=== PATIENT | female | born 1955 | race Two or more races ===

== ENCOUNTER 2019-12-08 09:47 | Outpatient (REF) | payer MEDICAID, SELFPAY ==
--- NOTE | 2019-12-08 09:53 | MM_ITS ---
EXAMINATION: MM SCREENING DIGITAL BREAST TOMOSYNTHESIS, BILATERAL CLINICAL INFORMATION: Screening. Asymptomatic. The lifetime risk of breast cancer based on the Tyrer-Cuzick Model is 5%. COMPARISON: Mammography: 07/19/2018, 12/09/2016 TECHNIQUE: Digital breast tomosynthesis is performed in both the craniocaudal and mediolateral oblique views along with computer-aided detection (CAD). Synthesized 2D images are generated from the tomosynthesis. FINDINGS: There are scattered areas of fibroglandular density (ACR BI-RADS breast composition Category b). There are no significant masses, abnormal calcifications, or other abnormalities. The axilla and skin contours are unremarkable. No significant changes. MM/MM tomosynthesis screening BI IMPRESSION: No mammographic evidence of malignancy. ASSESSMENT: BI-RADS 1: Negative RECOMMENDATION: Routine annual mammography screening. This patient's information was entered into a reminder system with a target due date for their next mammogram.
== END 2019-12-08 09:48 | disposition home or self-care (01) ==
LOC: HO.MAMMO 09:47
PROVIDERS: PCP Internal Medicine; Visit Provider Internal Medicine
DX: Z12.31 Encounter for screening mammogram for malignant neoplasm of breast (principal)
CPT/HCPCS: 77063; 77067

== ENCOUNTER 2020-10-13 07:19 | Outpatient (REF) | payer MEDICAID, SELFPAY ==
[2020-10-13 08:32] LABS: Anion Gap 12 (12-20); Blood Urea Nitrogen 20 mg/dL (9-16); Calcium 9.6 mg/dL (8.4-10.2); Carbon Dioxide 26 mmol/L (22-29); Chloride 108 mmol/L (96-108); Estimated Glomerular Filt Rate > 60; Glucose Random 174 mg/dL (60-115); Potassium 4.5 mmol/L (3.3-5.1); Sodium 141 mmol/L (135-145)
== END 2020-10-13 07:20 | disposition home or self-care (01) ==
LOC: HO.LAB 07:19
PROVIDERS: PCP Internal Medicine; Visit Provider Internal Medicine
DX: I10 Essential (primary) hypertension (principal)
CPT/HCPCS: 36415; 80048

== ENCOUNTER 2020-12-10 10:06 | Outpatient (REF) | payer MEDICAID, SELFPAY ==
--- NOTE | ~2020-12-10 | MM_ITS ---
EXAMINATION: MM SCREENING DIGITAL BREAST TOMOSYNTHESIS, BILATERAL CLINICAL INFORMATION: Screening. Asymptomatic. The lifetime risk of breast cancer based on the Tyrer-Cuzick Model is 7%. COMPARISON: Mammography: 12/08/2019, 07/19/2018, 12/09/2016 TECHNIQUE: Digital breast tomosynthesis is performed in both the craniocaudal and mediolateral oblique views along with computer-aided detection (CAD). Synthesized 2D images are generated from the tomosynthesis. Additional exaggerated right CC view is provided. FINDINGS: There are scattered areas of fibroglandular density (ACR BI-RADS breast composition Category b). There are no significant masses, abnormal calcifications, or other abnormalities. Parenchymal pattern is similar to prior studies. No significant changes. MM/MM tomosynthesis screening BI IMPRESSION: No mammographic evidence of malignancy. ASSESSMENT: BI-RADS 1: Negative RECOMMENDATION: Routine annual mammography screening. This patient's information was entered into a reminder system with a target due date for their next mammogram.
== END 2020-12-10 10:07 | disposition home or self-care (01) ==
LOC: HO.MAMMO 10:06
PROVIDERS: Visit Provider Internal Medicine
DX: Z12.31 Encounter for screening mammogram for malignant neoplasm of breast (principal)
CPT/HCPCS: 77063; 77067

== ENCOUNTER 2021-04-20 06:56 | Outpatient (REF) | payer MEDICAID, SELFPAY ==
[2021-04-20 07:05] LABS: MANUAL DIFF FLAG NO
[2021-04-20 07:56] LABS: Basophils Percent Auto 0.4 % (0-2); Eosinophils Absolute Auto 0.1 X10*3/uL (0.0-0.4); Eosinophils Percent Auto 2.5 % (0-4); Hematocrit 42.5 % (37.0-47.0); Hemoglobin 14.1 g/dl (12.0-16.0); Imm Gran Abs Auto 0.03 X10*3/uL (0.00-0.03); Imm Gran Pct Auto 0.6 % (0.0-0.4); Lymphocytes Absolute Auto 1.8 X10*3/uL (1.2-4.9); Lymphocytes Percent Auto 37.1 % (20-40); Mean Corpuscular HGB Conc 33.2 g/dl (31.0-35.0); Mean Corpuscular Hemoglobin 30.7 pg (27.0-33.0); Mean Corpuscular Volume 92.4 fL (80.0-98.0); Mean Platelet Volume 11.9 fL (9.4-12.3); Monocytes Absolute Auto 0.4 X10*3/uL (0.1-1.2); Monocytes Percent Auto 7.9 % (2-11); Neutrophils Absolute Auto 2.5 x10*3/uL (2.0-8.3); Neutrophils Percent Auto 51.5 % (45-73); Platelet Count 177 X10*3/uL (160-400); Red Cell Distribution Width 12.4 % (11.0-16.0); White Blood Count 4.8 X10*3/uL (4.8-10.8)
[2021-04-20 08:15] LABS: Alanine Aminotransferase 32 U/L (0-31); Albumin Level 4.4 g/dL (3.5-5.0); Alkaline Phosphatase 72 U/L (39-117); Anion Gap 11 (12-20); Aspartate Amino Transferase 21 U/L (5-31); Bilirubin Direct 0.4 mg/dL (0.0-0.5); Bilirubin Total 1.3 mg/dL (0.0-1.0); Blood Urea Nitrogen 13 mg/dL (9-16); Calcium 9.8 mg/dL (8.4-10.2); Carbon Dioxide 29 mmol/L (22-29); Chloride 104 mmol/L (96-108); Cholesterol 178 mg/dL; Estimated Glomerular Filt Rate > 60; Glucose Random 203 mg/dL (60-115); HDL Cholesterol 51 mg/dL; LDL Cholesterol Calculated 102 mg/dl; Potassium 4.5 mmol/L (3.3-5.1); Sodium 139 mmol/L (135-145); Total Protein 7.8 g/dL (6.5-8.0); Triglycerides 126 mg/dL
[2021-04-20 08:33] LABS: Creatinine Urine 157.32 mg/dL; Microalbum/Creatinine Ratio Ur 8.2 ug/mg cr
[2021-04-20 08:39] LABS: Vitamin D 25-OH Total 29.4 ng/mL (>30)
== END 2021-04-20 06:57 | disposition home or self-care (01) ==
LOC: HO.LAB 06:56
PROVIDERS: PCP Internal Medicine; Visit Provider Internal Medicine
DX: Z00.00 Encounter for general adult medical examination without abnormal findings (principal)
CPT/HCPCS: 36415; 80048; 80061; 80076; 82043; 82306; 85025

== ENCOUNTER 2021-12-12 09:36 | Outpatient (REF) | payer MEDICAID, SELFPAY ==
--- NOTE | ~2021-12-12 | MM_ITS ---
EXAMINATION: MM SCREENING DIGITAL BREAST TOMOSYNTHESIS, BILATERAL CLINICAL INFORMATION: Screening. Asymptomatic. The lifetime risk of breast cancer based on the Tyrer-Cuzick Model is 8.6%. COMPARISON: Mammography: 12/10/2020 and studies dating back to 11/11/2013. TECHNIQUE: Digital breast tomosynthesis was performed in both the craniocaudal and mediolateral oblique views along with computer-aided detection (CAD). Synthesized 2D images were generated from the tomosynthesis. FINDINGS: There are scattered areas of fibroglandular density (ACR BI-RADS breast composition Category b). There is a stable parenchymal pattern of the left breast with no new abnormal dominant mass or suspicious grouping of microcalcifications. Within the upper outer aspect of the right breast is question of a new oval density not seen on mediolateral oblique projection and which appears to lie about the lateral aspect of the breast on CC view. Spot compression views and possible ultrasound to follow are recommended. MM/MM tomosynthesis screening BI IMPRESSION: Right breast density for further evaluation. ASSESSMENT: BI-RADS 0: Incomplete - Need Additional Imaging Evaluation RECOMMENDATION: 1. Additional views of the right breast. 2. Targeted ultrasound if warranted after review of the additional views. 3. Radiology department staff will contact the patient for additional imaging. This patient's information was entered into a reminder system with a target due date for their next mammogram.
== END 2021-12-12 09:37 | disposition home or self-care (01) ==
LOC: HO.MAMMO 09:36
PROVIDERS: PCP Internal Medicine; Visit Provider Internal Medicine
DX: Z12.31 Encounter for screening mammogram for malignant neoplasm of breast (principal)
CPT/HCPCS: 77063; 77067

== ENCOUNTER 2021-12-31 14:15 | Outpatient (REF) | payer MEDICAID, SELFPAY ==
--- NOTE | ~2021-12-31 | MM_ITS ---
EXAMINATION: MM DIAGNOSTIC DIGITAL BREAST TOMOSYNTHESIS, RIGHT US DIAGNOSTIC ULTRASOUND BREAST, RIGHT CLINICAL INFORMATION: Recall from screening for question of small nodular asymmetric density anterior upper outer right breast. COMPARISON: Mammography: 12/12/2021, 12/10/2020, 12/08/2019, 07/19/2018, 12/09/2016, 12/05/2015, 11/17/2014. TECHNIQUE: Digital breast tomosynthesis is performed. 2D images are generated from the tomosynthesis. The following views are obtained: Spot CC, spot ML, rolled CC x2. Ultrasound right breast is targeted to the 1:00 through 1:00 position using grayscale imaging and color Doppler without and with harmonics. FINDINGS: There are scattered areas of fibroglandular density (ACR BI-RADS breast composition Category b). The additional views show questionable small smooth nodular asymmetric density in the area of recent imaging interest. There is no spiculation or associated calcification. Finding may be obscured on prior exams related to positioning. Ultrasound demonstrates small cyst approximately 0.3 cm 11:00 position 3 cm from nipple. There is no solid mass or architectural abnormality or focal duct ectasia. Results are discussed with the patient at time of visit. The small cyst on ultrasound may represent the mammographic finding. As a precaution, short interval six-month follow-up right mammography will be requested. MM/MM tomosynthesis added views R IMPRESSION: -Additional views show no architectural abnormality. -Ultrasound demonstrates small cyst under 5 mm, possibly corresponding to finding on recent mammography. ASSESSMENT: BI-RADS 3: Probably Benign RECOMMENDATION: Diagnostic right mammography in 6 months. This patient's information was entered into a reminder system with a target due date for their next mammogram.
== END 2021-12-31 14:16 | disposition home or self-care (01) ==
LOC: HO.MAMMO 14:15
PROVIDERS: PCP Internal Medicine; Visit Provider Internal Medicine
DX: R92.2 Inconclusive mammogram (principal)
CPT/HCPCS: 76642; 77061; 77065

== ENCOUNTER 2022-06-26 14:01 | Outpatient (REF) | payer MEDICAID, SELFPAY ==
--- NOTE | ~2022-06-26 | MM_ITS ---
EXAMINATION: MM DIAGNOSTIC DIGITAL BREAST TOMOSYNTHESIS, RIGHT US DIAGNOSTIC ULTRASOUND BREAST, RIGHT CLINICAL INFORMATION: Small nodular asymmetric density anterior upper outer right breast for short interval six-month follow-up, likely cyst on prior targeted breast ultrasound. Family history breast cancer mother. TC score 9%. COMPARISON: Mammography: 12/31/2021, 12/12/2021, 12/10/2020, ultrasound right breast 12/31/2021. TECHNIQUE: Digital breast tomosynthesis is performed in both the craniocaudal and mediolateral oblique views along with computer-aided detection (CAD). Synthesized 2D images are generated from the tomosynthesis. Ultrasound right breast is targeted to the upper outer breast. Grayscale imaging and color Doppler are performed without and with harmonics. FINDINGS: There are scattered areas of fibroglandular density (ACR BI-RADS breast composition Category b). The nodule anterior upper outer right breast is increased in size from prior exam, currently measuring just under 7 mm. No associated calcification. Margins are smooth, macrolobulated. Remainder of right breast unremarkable. No abnormal calcifications. No architectural abnormality. Skin contours are smooth. Ultrasound right breast demonstrates complicated cyst with some fine vascular internal septations measuring approximately 6 x 5 mm. No associated color flow. Mild increased through-transmission of sound suggested at real-time imaging. No posterior acoustic shadowing. This corresponds to the finding on mammography. Results are discussed with the patient at time of visit. The enlarging nodule appears to correspond to a complicated cyst. This could be sampled under ultrasound guidance to confirm benignity. Patient prefers continued surveillance. MM/MM tomosynthesis diagnostic RT IMPRESSION: -Nodule under 1 cm anterior upper outer right breast is increased in size from prior imaging. -Ultrasound suggests complicated cysts with internal avascular septations. -Patient prefers continued surveillance rather than tissue sampling to confirm benignity. ASSESSMENT: BI-RADS 3: Probably Benign RECOMMENDATION: Bilateral diagnostic mammography and targeted right breast ultrasound at time of annual bilateral breast imaging, due in 6 months. This patient's information was entered into a reminder system with a target due date for their next mammogram.
== END 2022-06-26 14:02 | disposition home or self-care (01) ==
LOC: HO.MAMMO 14:01
PROVIDERS: PCP Internal Medicine; Visit Provider Internal Medicine
DX: R92.2 Inconclusive mammogram (principal)
CPT/HCPCS: 76642; 77061; 77065

== ENCOUNTER 2022-11-19 12:39 | Outpatient (REF) | payer OTHER, MEDICAID, SELFPAY | END 2022-11-19 12:40 | disposition home or self-care (01) | LOC: HO.US 12:39 | PROVIDERS: PCP Internal Medicine; Visit Provider Internal Medicine | DX: E04.9 Nontoxic goiter, unspecified (principal); K11.1 Hypertrophy of salivary gland | CPT/HCPCS: 76536 ==

== ENCOUNTER 2022-12-24 09:47 | Outpatient (REF) | payer OTHER, MEDICAID, SELFPAY ==
[2022-12-24 12:04] LABS: TSH reflex Free T4 1.09 uIU/mL (0.32-4.0)
== END 2022-12-24 09:48 | disposition home or self-care (01) ==
LOC: HO.HHCL 09:47
PROVIDERS: Visit Provider Internal Medicine
DX: R61 Generalized hyperhidrosis (principal)
CPT/HCPCS: 36415; 84443

== ENCOUNTER 2023-01-06 10:40 | Outpatient (REF) | payer OTHER, SELFPAY ==
--- NOTE | ~2023-01-06 | MM_ITS ---
EXAMINATION: MM DIAGNOSTIC DIGITAL BREAST TOMOSYNTHESIS, BILATERAL US BREAST LIMITED, RIGHT MAMMOGRAPHY: CLINICAL INFORMATION: 6 month follow-up for right breast complicated cyst. COMPARISON: Mammography: 06/26/2022, 12/31/2021, 12/12/2021, 12/10/2020, 12/08/2019. TECHNIQUE: Digital breast tomosynthesis is performed in both the craniocaudal and mediolateral oblique views along with computer-aided detection (CAD). Synthesized 2D images are generated from the tomosynthesis. FINDINGS: There are scattered areas of fibroglandular density (ACR BI-RADS breast composition Category b). There is a small 7 mm focal asymmetric density in the upper outer right breast known to represent a complicated cyst in question. There are otherwise no suspicious masses, suspicious grouped calcifications, or areas of architectural distortion in either breast. The parenchymal pattern is stable from prior exams. ULTRASOUND: CLINICAL INFORMATION: 6 month follow-up right breast complicated cyst. COMPARISON: 06/26/2022, 12/31/2021. TECHNIQUE: Targeted sonographic evaluation right breast was performed using a high frequency linear transducer. Attention was given to the 11:00 axis. Selected archived documentation. FINDINGS: RIGHT BREAST: There is a stable complicated cyst with single septation and no internal color flow in the 11:00 axis of the right breast, 3 cm from the nipple, with good through transmission, measuring 0.5 x 0.4 x 0.4 cm, stable from prior and probably benign. One-year follow-up recommended. MM/MM tomosynthesis diagnostic BI IMPRESSION: There are no findings suspicious for malignancy in either breast. There is a stable complicated cyst in the right breast measuring 7 mm at the 11:00 axis, which has been unchanged over a one-year period and remains probably benign. One-year follow-up ultrasound recommended to ensure stability and establish definitive benignity. OVERALL ASSESSMENT: Mammography: BI-RADS 3 - Probably benign finding(s) - 12 month follow-up suggested Ultrasound: BI-RADS 3 - Probably benign finding(s) - 12 month follow-up suggested RECOMMENDATION: 12 month diagnostic follow up Results were provided to the patient at time of visit by the technologist. This patient's information was entered into a reminder system with a target due date for their next mammogram.
== END 2023-01-06 10:41 | disposition home or self-care (01) ==
LOC: HO.MAMMO 10:40
PROVIDERS: PCP Internal Medicine; Visit Provider Internal Medicine
DX: R92.2 Inconclusive mammogram (principal)
CPT/HCPCS: 76642; 77062; 77066

== ENCOUNTER → 2023-01-06 11:00 | Outpatient (BNV) | payer OTHER, SELFPAY | PROVIDERS: PCP Internal Medicine; Visit Provider Radiology Diagnostic Radiology | DX: N60.01 Solitary cyst of right breast (principal); R92.323 Mammographic fibroglandular density, bilateral breasts | CPT/HCPCS: 76642; 77062; 77066 ==

== ENCOUNTER 2023-04-29 08:50 | Outpatient (REF) | payer OTHER, SELFPAY ==
[2023-04-29 11:21] LABS: MANUAL DIFF FLAG NO
[2023-04-29 11:25] LABS: Basophils Percent Auto 0.7 % (0-2); Eosinophils Absolute Auto 0.2 X10*3/uL (0.0-0.4); Hemoglobin 14.2 g/dl (12.0-16.0); Imm Gran Abs Auto 0.02 X10*3/uL (0.00-0.03); Imm Gran Pct Auto 0.3 % (0.0-0.4); Lymphocytes Absolute Auto 2.3 X10*3/uL (1.2-4.9); Lymphocytes Percent Auto 38.3 % (20-40); Mean Corpuscular HGB Conc 33.8 g/dl (31.0-35.0); Mean Corpuscular Hemoglobin 30.5 pg (27.0-33.0); Mean Corpuscular Volume 90.3 fL (80.0-98.0); Mean Platelet Volume 12.1 fL (9.4-12.3); Monocytes Absolute Auto 0.5 X10*3/uL (0.1-1.2); Monocytes Percent Auto 8.1 % (2-11); Neutrophils Percent Auto 49.6 % (45-73); Platelet Count 232 X10*3/uL (160-400); Red Blood Count 4.65 X10*6/uL (4.20-5.50); Red Cell Distribution Width 12.1 % (11.0-16.0); White Blood Count 6.1 X10*3/uL (4.8-10.8)
[2023-04-29 11:43] LABS: Alanine Aminotransferase 58 U/L (0-31); Albumin Level 4.4 g/dL (3.5-5.0); Alkaline Phosphatase 74 U/L (39-117); Anion Gap 11 (12-20); Aspartate Amino Transferase 30 U/L (5-31); Bilirubin Direct 0.3 mg/dL (0.0-0.5); Bilirubin Total 0.9 mg/dL (0.0-1.0); Blood Urea Nitrogen 16 mg/dL (9-16); Calcium 9.7 mg/dL (8.4-10.2); Carbon Dioxide 27 mmol/L (22-29); Chloride 106 mmol/L (96-108); Estimated Glomerular Filt Rate > 60; Glucose Random 156 mg/dL (60-115); Potassium 4.3 mmol/L (3.3-5.1); Sodium 140 mmol/L (135-145)
[2023-04-29 12:00] LABS: HIV AB/AG Nonreactive (Nonreactive); HIV Num 1 0.06 S/CO (0.00-0.99); ~HepC Num1 0.13 S/CO (0.00-0.79); ~Hepatitis C Antibody Nonreactive (Nonreactive)
[2023-04-29 12:07] LABS: TSH reflex Free T4 1.85 uIU/mL (0.32-4.0)
[2023-05-02 07:39] LABS: TS Negative Control Passed; TS Panel A 1; TS Panel B 1; TS Positive Control Passed; TSpotTB Negative (Negative)
== END 2023-04-29 08:51 | disposition home or self-care (01) ==
LOC: HO.HHCL 08:50
PROVIDERS: Visit Provider Internal Medicine
DX: Z11.1 Encounter for screening for respiratory tuberculosis (principal); R63.4 Abnormal weight loss
CPT/HCPCS: 36415; 80048; 80076; 84443; 85025; 86481; 86803; 87389

== ENCOUNTER 2023-05-28 10:38 | Outpatient (REF) | payer OTHER, SELFPAY ==
--- NOTE | ~2023-05-28 | XR_ITS ---
EXAMINATION: XR WRIST, LEFT CLINICAL INFORMATION: Left sided wrist pain on and off with rotation COMPARISON: None available. TECHNIQUE: PA, lateral, and oblique views of the left wrist. FINDINGS: The ulnar lunate articulation in narrowed suggesting triangular fibrocartilage complex tear/defect. There also may be some erosion of the distal radial ulnar joint in part related to this suspected chronic malalignment. If clinically indicated, MRI of the wrist may be useful for further evaluation No additional abnormality is noted. The bones and soft tissues are otherwise unremarkable. No fracture. Alignment is otherwise anatomic with normal joint spaces. No erosions or abnormal soft tissue calcifications. XR/XR wrist LT min 3V IMPRESSION: Narrowing of the ulnar lunate articulation suggesting triangular fibrocartilage complex tear/defect. MRI may be useful for further evaluation.
== END 2023-05-28 10:39 | disposition home or self-care (01) ==
LOC: HO.HHCX 10:38
PROVIDERS: Visit Provider Pediatrics
DX: M25.532 Pain in left wrist (principal)
CPT/HCPCS: 73110

== ENCOUNTER 2023-06-11 07:51 | Outpatient (REF) | payer OTHER, SELFPAY ==
--- NOTE | ~2023-06-11 | CT_ITS ---
EXAMINATION: CT SOFT TISSUE NECK WITH CONTRAST CLINICAL INFORMATION: Persistent cervical lymphadenopathy COMPARISON: Ultrasound examination of the neck on 11/19/2022 TECHNIQUE: Following the intravenous administration of 60 mL of Omnipaque 350 intravenous contrast, helical imaging was performed in the axial plane with generation of coronal and sagittal reformatted images. This CT examination was performed using dose optimization techniques as appropriate, variously including the following: *Automated exposure control *Adjustment of mA and/or kV according to patient size (this includes techniques or standardized protocols for targeted exams where dose is matched to indication/reason for exam; i.e. extremities or head) *Use of iterative reconstruction technique DLP: 239.81 mGy-cm FINDINGS: PHARYNX: The visualized nasopharynx, oropharynx, hypopharynx are normal with no focal mass lesion. PHARYNGEAL STRUCTURES: Bilateral valleculae, epiglottis, piriform sinuses, vocal cords and arytenoids are normal. SALIVARY GLANDS: Bilateral parotid and submandibular salivary glands are symmetrical without focal lesion. LYMPH NODES: Dom right level 1A cervical lymph node measuring 0.4 cm in short axis, left level 1B cervical lymph node measuring 0.4 cm in short axis are seen. Right level 2A cervical lymph node measures 0.8 cm in short axis, series 4 image #30. Superior left level 2B cervical lymph node is seen measuring 0.8 cm in short axis, series 2 image #43. Shotty left level 2B cervical lymph node measuring 0.6 cm in short axis, series 2 image #53 is seen. No abnormally enlarged cervical or superior mediastinal lymph nodes are seen. THYROID: A 0.4 cm hypodense nodule is seen in posterior lower right thyroid lobe. Subtle 0.3 cm hypodense nodule is seen in mid right thyroid lobe. 0.3 cm hypodense nodule is seen in lateral upper mid right thyroid lobe. BONES: No fracture or dislocation. No focal bone lesion diagnostic of metastatic disease could be seen in the cervical spine and visualized skull base. LUNG APICES: The visualized lung apices are clear. CT/CT soft tissue neck w IV con IMPRESSION: 1. Shotty bilateral cervical lymph nodes are seen, as described above. No abnormally enlarged cervical or superior mediastinal lymph nodes are seen. 2. Small right thyroid nodules are seen, previously reported on ultrasound examination of the thyroid gland.
[2023-06-11] MEDS: iohexoL 350 MG/ML 100 ML INFUS..BTL IV (08:51)
[2023-06-12 06:21] LABS: Creatinine POC 0.5 mg/dL (0.5-1.4); GFR POC > 60
== END 2023-06-11 07:52 | disposition home or self-care (01) ==
LOC: HO.CT 07:51
PROVIDERS: PCP Internal Medicine; Visit Provider Internal Medicine
DX: R59.1 Generalized enlarged lymph nodes (principal)
CPT/HCPCS: 70491; 82565; Q9967

== ENCOUNTER 2023-07-10 10:00 | Outpatient (AMB) | payer OTHER, SELFPAY ==
--- NOTE | 2023-07-10 10:10 | A.OFFVIS_ITS ---
Intake Visit Reasons: Lymphadenopathy Intake Note: Patient is seen in office for evaluation and treatment of lymphadenopathy. Pt c/o: neck was swollen and had excessive sweats, had CT scan done and was told to follow with a surgeon CT:06/11/23 [employer] Required: No Accompanied by: Daughter Allergies hydrochlorothiazide Adverse Reaction (Mild, Verified 07/10/23 10:18) dark spot WHEAT FLOUR Allergy (Unknown, Uncoded 07/10/23 10:18) HIVES Medication List - Last Reconciled 07/10/23 by Yoav Rogers MD albuterol sulfate 90 mcg/actuation (ProAir HFA) 1 inh inhalation QID amoxicillin 500 mg PO TID aspirin 81 mg PO DAILY cromolyn 4% drps ophthalmic (eye) diphenhydramine HCl (Banophen) mg PO diphenhydramine HCl (Banophen) 25 mg PO BEDTIME PRN dulaglutide (Trulicity) 3 mg subcut QWEEK glipizide ER 10 mg PO BID lisinopril 5 mg PO DAILY peg 400-propylene glycol (PF) 0.4-0.3 % (Systane (PF)) 1 drp ophthalmic (eye) BID-QID PRN simvastatin 20 mg PO DAILY HPI Comments Details: 67-year-old female patient presenting for evaluation of cervical lymphadenopathy. Reports the node was initially palpated last summer after experiencing intense sweating. She was recently started on Trulicity and feels the symptoms started after this medication. On examination a lump was noted in the midline below the chin and on the right side below the mandible. Subsequent workup with ultrasound of the thyroid revealed bilateral thyroid nodules as well as shotty lymph nodes especially on the right side. No suspicious lymphadenopathy was appreciated. Subsequent CT of the neck obtained on 06/11/2023 also revealed shotty lymph nodes in the right and midline neck. Again no suspicious lymph nodes were appreciated. She no longer reports the sweating symptoms. Generally she feels well with no nausea, vomiting, fever, chills, weight loss or anorexia. She follows Dr. Haas for her diabetes, thyroid nodule. [facility] Surgical History Hx of tubal ligation Social History Alcohol intake: never Patient Tobacco Use Status: Never used Tobacco Review of Systems Const All systems reviewed & are unremarkable except as noted in HPI and below Reports as per HPI, Denies chills, Denies fever(s), Denies headache(s), Denies poor appetite and Denies weakness ENT Denies headache(s) Card Denies chest pain, Denies irregular heart rhythm, Denies palpitations and Denies dyspnea Resp Denies cough, Denies excessive phlegm production and Denies dyspnea GI Denies abdominal pain, Denies bloating, Denies change in bowel habits, Denies constipation, Denies heartburn, Denies diarrhea, Denies nausea and Denies vomiting Denies urinary frequency Musc Denies back pain, Denies muscle weakness and Denies numbness Skin/Breast Denies changing lesions and Denies unusual bruising Neuro Denies headache(s), Denies numbness, Denies paresthesias and Denies weakness Psych Denies anxiety and Denies depression Endo Denies palpitations Josesito/Lymph Reports as per HPI Physical Exam Const General: cooperative and no acute distress Nutritional Appearance: well nourished Orientation/consciousness: patient oriented x3 Limitations: no limitations HEENT Other: Examination of the cervical supraclavicular and axillary compartments revealed no suspicious enlarged lymph nodes. No glandular enlargement is appreciated. Head: Yes normocephalic and Yes atraumatic Ears: hearing grossly normal bilaterally Resp Effort & Inspection: normal respiratory effort, no audible wheezes, no cough and no respiratory distress Cardio Jugular venous distension: no JVD GI Inspection: Yes normal to inspection Skin Other: Warm, dry, no rash Neuro General: patient oriented x3 Extrem General: Yes no clubbing, cyanosis or edema Assessment & Plan Assessment & Plan (1) Lymph node enlargement: Code(s): R59.9 - Enlarged lymph nodes, unspecified Category: Medical Plan 67-year-old female patient presenting for evaluation of possible lymph node enlargement. This was 1st identified last year and confirmed by ultrasound and CT. Radiologic studies revealed shotty nodes without pathologic changes. On my examination I am currently unable to feel any convincing evidence of lymphadenopathy in the cervical, supraclavicular and axillary regions. She is scheduled for a follow-up ultrasound of the neck by Dr. Haas. I would not recommend any biopsy at this time. She is welcome to return for any changes. Coding Level of Care Code New Pt Level 4 (07078) Diagnoses Lymph node enlargement R59.9
== END 2023-07-10 10:34 | disposition home or self-care (01) ==
PROVIDERS: PCP Internal Medicine; Referring Provider Internal Medicine; Visit Provider Surgery
DX: R59.9 Enlarged lymph nodes, unspecified (principal)
CPT/HCPCS: 99203

== ENCOUNTER → 2023-07-10 10:00 | Outpatient (BNVA) | payer OTHER, SELFPAY | PROVIDERS: PCP Internal Medicine; Referring Provider Internal Medicine; Visit Provider Surgery | DX: R59.9 Enlarged lymph nodes, unspecified (principal) | CPT/HCPCS: 99202 ==

== ENCOUNTER 2023-07-28 10:12 | Outpatient (REF) | payer OTHER, SELFPAY ==
[2023-07-28 11:57] LABS: Creatinine Urine 40.48 mg/dL; Microalbumin Urine < 5.0 mg/L
== END 2023-07-28 10:13 | disposition home or self-care (01) ==
LOC: HO.HHCL 10:12
PROVIDERS: Visit Provider Internal Medicine
DX: E11.65 Type 2 diabetes mellitus with hyperglycemia (principal)
CPT/HCPCS: 82570

== ENCOUNTER 2023-08-11 13:15 | Outpatient (REF) | payer OTHER, SELFPAY ==
--- NOTE | ~2023-08-11 | US_ITS ---
EXAMINATION: US SOFT TISSUE HEAD/NECK CLINICAL INFORMATION: Follow up cervical neck lymphadenopathy. COMPARISON: CT soft tissue neck with contrast 06/11/2023. Thyroid ultrasound 11/19/2022. TECHNIQUE: Linear transducer grayscale and color Doppler examination of the thyroid bed and surrounding soft tissue. FINDINGS: RIGHT: 1.2 x 0.3 x 0.4 cm right level IB node with borderline cortical thickening and echogenic hilum. Multiple atypical right cervical lymph nodes, largest 1.5 x 0.5 x 0.9 cm at level III node with borderline thickening of the cortex with minimal echogenic hilum. LEFT: Multiple atypical left cervical nodes with examples as follows: 0.6 x 0.3 x 0.6 cm level IB atypical node 1.0 x 0.3 x 0.8 cm level II node 0.8 x 0.3 x 0.7 cm level III node US/US soft tiss head and/or neck IMPRESSION: Multiple atypical bilateral cervical lymph nodes again seen. Decisions regarding further management including possible additional imaging with contrast enhanced CT scan, treatment and/or biopsy should be based on the clinical assessment. Recommend follow-up ultrasound in 3 months.
== END 2023-08-11 13:16 | disposition home or self-care (01) ==
LOC: HO.US 13:15
PROVIDERS: Visit Provider Internal Medicine
DX: R59.1 Generalized enlarged lymph nodes (principal)
CPT/HCPCS: 76536

== ENCOUNTER 2023-08-18 09:59 | Outpatient (REF) | payer OTHER, SELFPAY ==
--- NOTE | ~2023-08-18 | MM_ITS ---
EXAMINATION: BONE DENSITOMETRY CLINICAL INDICATION: Encounter for screening for osteoporosis. COMPARISON: Baseline BD dated 01/11/2013. TECHNIQUE: Using a [employer] DXA System (software version: 13.1) manufactured by [employer], dual-energy x-ray absorptiometry was performed of the lumbar spine and left hip. The images are of good technical quality. Summary results are attached. FINDINGS: LEFT FEMUR, NECK: Current: BMD 0.918 g/cm2, Z-score 0.8, T-score -0.9, normal. Baseline: BMD 1.046 g/cm2. LEFT FEMUR, TOTAL: Current: BMD 0.966 g/cm2, Z-score 1.1, T-score -0.3, normal, 6.3% decrease from baseline (<5% change is not significant). Baseline: BMD 1.031 g/cm2. AP SPINE L1-L4: Current: BMD 1.017 g/cm2, Z-score 0.5, T-score -1.4, osteopenia, 14.6% decrease from baseline (<5% change is not significant). Baseline: BMD 1.191 g/cm2. IDENTIFIED RISK FACTORS: Menopause. HISTORY OF FRACTURE: None listed. MEDICATIONS: Calcium supplements or multivitamin, vitamin D. MM/XR DEXA axial skeleton IMPRESSION: 1. DIAGNOSIS: Osteopenia based on the lowest T-score value of -1.4 in the lumbar spine applying World Health Organization criteria. 2. 10-YEAR FRACTURE RISK PREDICTION, FRAX: Major osteoporotic fracture (clinical spine, forearm, hip or shoulder) 3.6%. Hip fracture 0.3%. 3. Treatment Recommendations: NOF guidelines recommend consideration for treatment in postmenopausal women and men age 50 and older presenting with the following: -A hip or vertebral (clinical or morphometric) fracture. -T-score less than or equal to -2.5 at the femoral neck or spine after appropriate evaluation to exclude secondary causes. -Low bone mass at the hip or spine and a 10-year fracture probability by FRAX of greater than or equal to 3% for hip fracture or greater than or equal to 20% for major osteoporotic fracture based on the [place] adapted WHO algorithm. 4. Other Recommendations: All treatment decisions require clinical judgment and consideration of individual patient factors, including patient preferences, comorbidities, previous drug use, risk factors not captured in the FRAX model (e.g. frailty, falls, vitamin D deficiency, increased bone turnover, interval significant decline in bone density) and possible under or overestimation of fracture risk by FRAX. Additional medical evaluation for secondary cause of low bone mineral density may be appropriate. FUTURE SCAN RECOMMENDATION: People with diagnosed cases of osteoporosis or at high risk for fracture should have regular bone mineral density tests. For patients eligible for Medicare, routine testing is allowed once every 2 years. The testing frequency can be increased to one year for patients who have rapidly progressing disease, those who are receiving or discontinuing medical therapy to restore bone mass, or have additional risk factors.
== END 2023-08-18 10:00 | disposition home or self-care (01) ==
LOC: HO.MAMMO 09:59
PROVIDERS: PCP Internal Medicine; Visit Provider Internal Medicine
DX: Z13.820 Encounter for screening for osteoporosis (principal); Z78.0 Asymptomatic menopausal state
CPT/HCPCS: 77080

== ENCOUNTER 2023-09-28 13:24 | Outpatient (REF) | payer OTHER, SELFPAY ==
[2023-09-29 13:51] LABS: Bacterial Vaginosis PCR NEGATIVE (Negative); Candida Group PCR DETECTED (Not Detect); Candida glab krusei PCR NOT DETECTED (Not Detect); Trichomonas vaginalis PCR NOT DETECTED (Not Detect)
== END 2023-09-28 13:25 | disposition home or self-care (01) ==
LOC: HO.HHCLNP 13:24
PROVIDERS: Visit Provider Advanced Practice Midwife
DX: N89.8 Other specified noninflammatory disorders of vagina (principal)
CPT/HCPCS: 0352U

== ENCOUNTER 2023-11-10 09:33 | Outpatient (REF) | payer OTHER, SELFPAY ==
[2023-11-10 12:01] LABS: Anion Gap 11 (12-20); Blood Urea Nitrogen 14 mg/dL (9-16); Calcium 9.6 mg/dL (8.4-10.2); Carbon Dioxide 24 mmol/L (22-29); Chloride 106 mmol/L (96-108); Cholesterol 163 mg/dL (<200); Estimated Glomerular Filt Rate > 60; Glucose Random 191 mg/dL (60-115); HDL Cholesterol 47 mg/dL (>40); LDL Cholesterol Calculated 84 mg/dL (<100); Sodium 137 mmol/L (135-145); Triglycerides 160 mg/dL (<150)
[2023-11-10 13:44] LABS: Reflex LDLD? No
== END 2023-11-10 09:34 | disposition home or self-care (01) ==
LOC: HO.HHCL 09:33
PROVIDERS: Visit Provider Internal Medicine
DX: I10 Essential (primary) hypertension (principal)
CPT/HCPCS: 36415; 80048; 80061

== ENCOUNTER 2023-12-15 12:53 | Outpatient (REF) | payer OTHER, SELFPAY | END 2023-12-15 12:54 | disposition home or self-care (01) | LOC: HO.US 12:53 | PROVIDERS: PCP Internal Medicine; Visit Provider Internal Medicine Endocrinology, Diabetes & Metabolism | DX: E04.2 Nontoxic multinodular goiter (principal) | CPT/HCPCS: 76536 ==

== ENCOUNTER 2024-01-12 10:30 | Outpatient (REF) | payer MEDICARE, MEDICAID, SELFPAY ==
--- NOTE | ~2024-01-12 | MM_ITS ---
EXAMINATION: MM DIAGNOSTIC DIGITAL BREAST TOMOSYNTHESIS, BILATERAL US BREAST LIMITED, RIGHT MAMMOGRAPHY: CLINICAL INFORMATION: Six-month follow-up (for two-year stability) probably benign complicated cyst right breast measuring 6 mm. Patient also due for yearly screening. COMPARISON: Mammography: 01/06/2023, 06/26/2022, 12/31/2021 (BI-RADS 0), 12/12/2021, 12/10/2020, 12/08/2019. Ultrasound: 01/06/2023, 06/26/2022, 12/31/2021. TECHNIQUE: Digital breast tomosynthesis is performed in both the craniocaudal and mediolateral oblique views along with computer-aided detection (CAD). Synthesized 2D images are generated from the tomosynthesis. In addition, added full-field 3-D right CC nipple in profile view, and bilateral added 3-D MLO nipple in profile views were obtained. This was followed by targeted right breast ultrasound in the 11:00 axis. FINDINGS: There are scattered areas of fibroglandular density (ACR BI-RADS breast composition Category b). Overall mass at 11:00 right breast, mid depth, circumscribed, measuring approximately 7 mm. This appears stable. There are vascular calcifications. There are no suspicious masses, suspicious grouped calcifications, or areas of architectural distortion in either breast. The parenchymal pattern is stable from prior exams. There is no skin or axillary abnormality. ULTRASOUND: CLINICAL INFORMATION: As above. Septated cyst final follow-up (for 2 year stability) 11:00 axis right breast, measuring 6 mm. COMPARISON: 01/06/2023, 06/26/2022, 12/31/2021. TECHNIQUE: Targeted sonographic evaluation was performed using a high frequency linear transducer. Attention was given to the 11:00 axis right breast. Selected archived documentation. FINDINGS: RIGHT BREAST: At the 11:00 axis right breast, 3 cm from the nipple, there is a stable 6 mm cyst with a solitary thin septation, unchanged from prior exams, and benign. No suspicious features or significant change. This finding is benign. No further follow-up recommended. MM/MM tomosynthesis diagnostic BI IMPRESSION: 1. There are no findings suspicious for malignancy in either breast. 2. Benign septated cyst measuring 6 mm right breast 11:00 axis. This has been stable over 2 years. No further follow-up recommended. 3. Recommend the patient resume routine annual screening mammography. OVERALL ASSESSMENT: Mammography: BI-RADS 2 - Benign Findings Ultrasound: BI-RADS 2 - Benign Findings RECOMMENDATION: 1 year F/U This patient's information was entered into a reminder system with a target due date for their next mammogram. Electronically signed by: Patrick Holt MD 01/12/2024 11:44 AM MARVIN LYNCH
== END 2024-01-12 10:31 | disposition home or self-care (01) ==
LOC: HO.MAMMO 10:30
PROVIDERS: PCP Internal Medicine; Visit Provider Internal Medicine
DX: N60.01 Solitary cyst of right breast (principal)
CPT/HCPCS: 76642; 77062; 77066

== ENCOUNTER → 2024-01-12 11:00 | Outpatient (BNV) | payer MEDICARE, MEDICAID, SELFPAY | PROVIDERS: PCP Internal Medicine; Visit Provider Radiology Diagnostic Radiology | DX: N60.01 Solitary cyst of right breast (principal); R92.323 Mammographic fibroglandular density, bilateral breasts | CPT/HCPCS: 76642; 77066; G0279 ==

== ENCOUNTER 2024-06-14 11:39 | Outpatient (REF) | payer MEDICARE, MEDICAID, SELFPAY ==
--- NOTE | ~2024-06-14 | XR_ITS ---
EXAMINATION: XR SHOULDER, RIGHT CLINICAL INFORMATION: PAIN COMPARISON: X-ray dated January 06, 2013 is not available on PACS. TECHNIQUE: AP external rotation, Grashey, scapular Y, and axillary views of the right shoulder. FINDINGS: Degenerative changes in the acromioclavicular joint. No acute cortical disruption or malalignment. No lytic or blastic lesions. Subtle calcifications within the supraspinatus tendon insertion. XR/XR shoulder RT min 2V IMPRESSION: Tendinosis versus tendinopathy, supraspinatus. Degenerative changes acromioclavicular joint. Electronically signed by: Yaw Michelle MD 06/14/2024 01:10 PM EDT
--- OUTSIDE RECORDS SUMMARY | 2024-06-14 13:48 | XMS_ITS | Encounter Summary ---
Author Organization [employer] [facility] Address [address] [place] [address] Care Team Providers Care Transmission Maintenance Supervisor Name Role Phone Monica Francis MD Primary Care Provide r Abelino Devine PharmD Unavailable [phone] Reason for Visit * Reason Comments Chart update mammo Encounter Details Date Type Department Care Team (Late Contact Info) Description 08/07/2022 Abstract [facility] [address] [place] [address] Monica Francis MD [address] [place] [address] Social History Tobacco Use Types Packs/Day Years Used Date Smoking Tobacco: Never Passive Smoke Exposure: Never Smokeless Tobacco: Never Alcohol Use Standard Drinks/Week Comments Never 0 (1 standard drink = 0.6 oz pur e alcohol) Depression Answer Date Recorded Patient Health Questionnaire-2 Score 0 05/21/2022 Comments Unknown Sex and Gender Information Value Date Recorded Sex Assigned at Female 12/16/2021 10:16 AM EDT Legal Sex Female 10:16 AM EDT Gender Identity Female 12/16/2021 10:16 AM EDT Sexual Orientation Straight 05/01/2022 2: 08 PM EDT documented as of this encounter Plan of Treatment Upcoming Encounters Date Type Department Care Team (Late Contact Info) Description 06/17/2024 9:00 AM EDT Medication Management [facility] [address] [place] [address] Abelino Devine, PharmD [address] [place] [address] documented as of this encounter Procedures Procedure Name Priority Date/Time Associated Diagnosis Comments MAMMOGRAPHY Routine 06/26/2022 2:51 PM EDT documented in this encounter Results * Mammography (06/26/2022 2:51 PM EDT) Mammogram Birads 3 Anatomical Region Laterality Modality Other Narrative 06/26/2022 2:51 PM EDT Recommended 6 month at time of annual Historical Provider HEALTH MAINTENANCE Final Result documented in this encounter Visit Diagnoses Not on filedocumented in this encounter Care Teams Transmission Maintenance Supervisor Relationship Specialty Start Date End Date Monica Francis MD [address] [place] [address] PCP - General Family Medicine 10/28/17 Abelino Devine, RobbieD [address] [place] [address] Pharmacist Internal Medicine 05/03/24 documented as of this encounter
--- OUTSIDE RECORDS SUMMARY | 2024-06-14 13:49 | XMS_ITS | Encounter Summary ---
Author Organization [employer] Address [address] [place] [address] Care Team Providers Care Larry Car Operator Name Role Phone Monica Francis MD Primary Care Provide r Abelino Devine PharmD Unavailable [phone] Reason for Visit * Reason Comments Med Refill Encounter Details Date Type Department Care Team ([facility] st Contact Info) Description 01/28/2023 Refill [facility] [address] [place] [address] Monica Francis MD [address] [place] [address] Type 2 diabetes mellitus without complication, without long-term current use of insulin ([facility]) Social History Tobacco Use Types Packs/Day Years Used Date Smoking Tobacco: Never Passive Smoke Exposure: Never Smokeless Tobacco: Never Alcohol Use Standard Drinks/Week Comments Never 0 (1 standard drink = 0.6 oz pur e alcohol) Housing Stability Answer Date Recorded What is your housing situation today? I have airam de [place] 12/12/[address] you li ve. Do you have problems with any of the following? None of the above 12/12/2022 Food Insecurity Answer Date Recorded Within the past 12 months, y ou worried that your food would run out before you got money to buy more: Never True 12/12/2022 Within the past 12 months,th e food you bought just didn't last and you didn't have enough money to get more: Never True Transportation Answer Date Recorded In the past 12 months, has l ack of transportation kept you from medical appts, meetings, work or from getting things needed for daily living? No 12/12/2022 Utilities Answer Date Recorded In the past 12 months, has t he electric, gas, oil or water company threatened to shut off services in your home? No 12/12/2022 Depression Answer Date Recorded Patient Health Questionnaire-2 [...] Encounters Date Type Department Care Team (Late st Contact Info) Description 06/17/2024 9:00 AM EDT Medication Management [facility] [address] [place] [address] Abelino Devine, PharmD [address] [place] [address] documented as of this encounter Visit Diagnoses Diagnosis Type 2 diabetes mellitus without complication, without long-term current use of insulin ([facility]) documented in this encounter Care Teams Larry Car Operator Relationship Specialty Start Date End Date Monica Francis MD [address] [place] [id number] PCP - General Family Medicine 10/28/17 Abelino Devine, PharmD [address] [place] [id number] Pharmacist Internal Medicine 05/03/24 documented as of this encounter
--- OUTSIDE RECORDS SUMMARY | 2024-06-14 13:49 | XMS_ITS | Encounter Summary ---
Author Organization [employer] Address [address] [place] [address] Care Team Providers Care Clip And Hanger Attacher Name Role Phone Monica Francis MD Primary Care Provide r Abelino Devine PharmD Unavailable [phone] Reason for Visit * Reason Onset Date Comments Nurse Triage 06/08/2024 Encounter Details Date Type Department Care Team ([facility] st Contact Info) Description 06/08/2024 Telephone [facility] [address] [place] [address] Monica Francis MD [address] [place], [place] [phone] Nurse Triage Social History Tobacco Use Types Packs/Day Years Used Date Smoking Tobacco: Never Passive Smoke Exposure: Never Smokeless Tobacco: Never Alcohol Use Standard Drinks/Week Comments Never 0 (1 standard drink = 0.6 oz pur e alcohol) Alcohol Answer Date Recorded Frequency of Alcohol Consumption Not on file 07/28/2023 Average Number of Drinks Not on file 024 Frequency of Binge Drinking Not on file 07/17 Score 0 07/28/2023 Depression Answer Date Recorded Patient Health Questionnaire-9 Score 0 07/28/2023 Patient Health Questionnaire-9 Score 0 07/28/2023 Last PHQ-9: Questionnaire Data Not on file 0 07/28/2023 Housing Stability Answer Date Recorded What is your housing situation today? I have airam de [place]za 07/28/[address] you li ve. Do you have problems with any of the following? None of the above 07/28/2023 Food Insecurity Answer Date Recorded Within the past 12 months, y ou worried that your food would run out before you got money to buy more: Never True 07/28/2023 Within the past 12 months,th e food you bought just didn't last and you didn't have enough money to get more: Never True 12/2023 Transportation Answer Date Recorded In the past 12 months, has l ack of transportation kept you from medical appts, meetings, work or from getting things needed for daily living? No 07/28/2023 Utilities Answer Date Recorded In the past 12 months, has t he electric, gas, oil or water [employer] threatened to shut off services in your home? No 07/28/2023 Depression Answer Date Recorded Patient Health Questionnaire-2 Score 0 07/28/2023 Internet Access Answer Date Recorded Internet Access Q1 No 05/02/2024 Internet Access Q2 I do not want or need it 04/16 Comments No Sex and Gender Information Value Date Recorded Sex Assigned at Female 12/16/2021 10:16 AM EDT Legal Sex Female 10:16 AM EDT Gender Identity Female 12/16/2021 10:16 AM EDT Sexual Orientation Straight 05/01/2022 2: 08 PM EDT documented as of this encounter Miscellaneous Notes * Telephone Encounter - Desire Red RN - 06/09/2024 1:05 PM EDT TC returned to pt., pt. Reports excessive sweating from the head x 1 year but resolved in the cooler months, but is now recurring. Per chart review, pt. Used to take venlafaxine for this but was discontinued around April 2023 due to effects on thyroid and pt. Reported to engineering agent in June 2023at symptoms were no longer occurring. Pt. Reports she wakes up soaked in sweat and even going on a walk outside, hair will be soaked as if it was raining even though she does not feel overly hot. Pt. Reports symptoms occur daily. Pt. Agrees to appt. With PCP 06/14/24 at 11:15am to discuss * Telephone Encounter - Elroy Sharma - 06/09/2024 10:21 AM EDT TC from pt returning call regarding prior message. Contact pt at [phone] * Telephone Encounter - Lynnette Grubbs RN - 06/08/2024 12:58 PM EDT Triage call with [employer] system software programmer [place] [id number] [id number]. Pt phone went directly to voice mail box. Unable to leave voice message. Call to Pt x2 * Telephone Encounter - Elroy Sharma - 06/08/2024 12:07 PM EDT Tc from pt returning call regarding prior message. Contact pt at [phone] * Telephone Encounter - Jennifer Richey - 06/08/2024 9:21 AM EDT Symptom: Excessive Sweating (head) Outcome: Schedule an appointment to be seen within 3 days Reason: Caller denied all higher acuity questions The caller accepted this outcome. [phone] documented in this encounter Plan of Treatment Upcoming Encounters Date Type Department Care Team (Late st Contact Info) Description 06/17/2024 9:00 AM EDT Medication Management [facility]INE [address] [place] [address] Abelino Devine, PharmD [address] [place] [address] documented as of this encounter Visit Diagnoses Not on filedocumented in this encounter Additional Health Concerns Assessment Noted Time PHQ-9 Depression Total Score: 0 07/28/19 24 10:07 AM EDT documented as of this encounter Care Teams Clip And Hanger Attacher Relationship Specialty Start Date End Date Monica Francis MD [address] [place] [address] PCP - General Family Medicine 10/28/17 Abelino Devine, RobbieD [address] [place] [address] Pharmacist Internal Medicine 05/03/24 documented as of this encounter
--- OUTSIDE RECORDS SUMMARY | 2024-06-14 13:49 | XMS_ITS | Encounter Summary ---
Author Organization [employer] Address [address] [place] [address] Care Team Providers Care Metal Room Dental Technician Name Role Phone Monica Francis MD Primary Care Provide r Abelino Devine PharmD Unavailable [phone] Reason for Visit * Reason Onset Date Comments Chart prep 06/09/2024 Encounter Details Date Type Department Care Team ([facility] st Contact Info) Description 06/09/2024 Telephone [facility] [address] [place] [address] Monica Francis MD [address] [place], [place] [phone] Chart prep Social History Tobacco Use Types Packs/Day Years [...] encounter Miscellaneous Notes * Telephone Encounter - Sugey Jacobson MA - 06/09/2024 3:30 PM EDT Chart Prep Labs: done Images: done Referrals: appointment pending Vaccines due: yes Screenings: colonoscopy and foot exam Overdue care gaps: Glucose documented in this encounter Plan of Treatment Upcoming Encounters Date Type Department Care Team (Late st Contact Info) Description 06/17/2024 9:00 AM EDT Medication Management [facility] [address] [place] [address] Abelino Devine, PharmD [address] [place] [address] documented as of this encounter Visit Diagnoses Not on filedocumented in this encounter Additional Health Concerns Assessment Noted Time PHQ-9 Depression Total Score: 0 07/28/19 24 10:07 AM EDT documented as of this encounter Care Teams Metal Room Dental Technician Relationship Specialty Start Date End Date Monica Francis MD [address] [place] [address] PCP - General Family Medicine 10/28/17 Abelino Devine, Wilber [address] [place] [address] Pharmacist Internal Medicine 05/03/24 documented as of this encounter
--- OUTSIDE RECORDS SUMMARY | 2024-06-14 13:49 | XMS_ITS | Encounter Summary ---
Author Organization [employer] Address [address] [place] [address] Care Team Providers Care Lead Investigator Name Role Phone Monica Francis MD Primary Care Provide r Abelino Devine PharmD Unavailable [phone] Encounter Details Date Type Department Care Team (Latest Contact Info) Description 06/14/2024 Travel Social History Tobacco Use Types Packs/Day Years [...] Description 06/17/2024 9:00 AM EDT Medication Management [facility] [address] [place] [address] Abelino Devine, PharmD [address] [place] [address] documented as of this encounter Visit Diagnoses Not on filedocumented in this encounter Additional Health Concerns Assessment Noted Time PHQ-9 Depression Total Score: 0 07/28/19 24 10:07 AM EDT documented as of this encounter Care Teams Lead Investigator Relationship Specialty Start Date End Date Monica Francis MD [address] [place] [phone] PCP - General Family Medicine 10/28/17 Abelino Devine, PharmD [address] [place] [phone] Pharmacist Internal Medicine 05/03/24 documented as of this encounter
--- OUTSIDE RECORDS SUMMARY | 2024-06-14 13:49 | XMS_ITS | Clinical Summary ---
Author Organization [employer] Address [address] [place] [address] Care Team Providers Care Oil Well Service Operator Name Role Phone Monica Francis MD Primary Care Provide r Abelino Devine PharmD Unavailable Allergies Active Allergy Reactions Criticality Noted Date Comments Pickled Meat Rash Low 05/11/2024 Hydrochlorothiazide Hives 05/09/2010 Wheat 06/30/2016 Other reaction(s): hives Medications Blood Glucose Monitoring Suppl (SocialGuide Verio) w/Device kit 1 each 2 times daily. TEST BLOOD SUGAR TWICE A DAY 1 kit 01/21/20 23 Active simvastatin (Zocor) 20 MG tabletIndications: Combined hyperlipidemia TAKE 1 TABLET BY MOUTH EVERY DAY IN THE EVENING 90 tablet 1 01/20/20 24 Active diphenhydrAMINE (Banophen) 25 MG capsuleIndications :Allergic rhinitis, unspecified seasonality, unspecified trigger Take 1 capsule (25 mg) by mouth every 6 (six) hours if needed for itching. 30 capsule 2 01/22/20 24 Active glipiZIDE XL (Glucotrol XL) 10 MG 24 hr tabletIndications: Type 2 diabetes mellitus with hyperglycemia, without long-term current use of insulin ([facility]) TAKE 1 TABLET BY MOUTH TWICE DAILY 180 tablet 1 02/11/20 24 Active hydroquinone 4 % creamIndications:M elasma Apply topically 2 times daily. 28.35 g 3 03/18/19 25 026 Active insulin glargine (Lantus) 100 UNIT/ML injectionIndicatio ns:Type 2 diabetes mellitus with hyperglycemia, without long-term current use of insulin ([facility]) Inject 12 Units under the skin at bedtime. 10 mL 04/01/19 25 028 Active lisinopril 5 MG tablet TAKE 1 TABLET BY MOUTH EVERY DAY 90 tablet 04/05/19 25 Active insulin syringe U-100 0.5 mL mis Use as instructed 100 each 12 04/05/19 25 026 Active OneTouch Verio test strip USE TEST BLOOD SUGAR TWICE DAILY 50 strip 04/12/19 25 Active Lancets (OneTouch Delica Plus [id number]) misc USE TO TEST BLOOD SUGAR TWICE DAILY 100 each 11 04/12/19 25 Active cholecalciferol (Vitamin D-3) 25 MCG tablet TAKE 1 TABLET BY MOUTH EVERY DAY 90 tablet 04/14/19 25 Active cromolyn (Opticrom) 4 % ophthalmic solution Administer 1 drop into affected eye(s) 4 times daily. 04/28/19 24 Active aspirin 81 MG EC tabletIndications: Type 2 diabetes mellitus with hyperglycemia, without long-term current use of insulin ([facility]) Take 1 tablet (81 mg) by mouth Once per day. 30 tablet 04/19/19 25 Active polyethylene glycol, PEG, 3350 (MiraLax) 17 GM/SCOOP powderIndications: Constipation, unspecified constipation type Take 17 g by mouth Once per day. 527 g 04/19/19 25 025 Active ascorbic acid (Vitamin C) 1000 MG tablet Take 1,000 mg by mouth Once per day. Purchases OTC. Active Collagen-Vitamin C-Biotin (COLLAGEN PO) Take 1 capsule by mouth Once per day. Purchases OTC Active calcium carbonate (Calcium 600) 600 MG tablet Take 600 mg by mouth Once per day. Purchases OTC. Active Lancets miscIndications:Ty pe 2 diabetes mellitus with hyperglycemia, without long-term current use of insulin ([facility]) 1 each Once per day. Patient needs one touch lancet devise 100 each 2 05/12/19 25 Active ibuprofen 800 MG tabletIndications: Chronic right shoulder pain Take 1 tablet (800 mg) by mouth every 8 (eight) hours if needed for mild pain for up to 10 days. 30 tablet 06/15/19 25 025 Active Ketotifen Fumarate 0.035 % solutionIndication s:Allergic conjunctivitis of both eyes Administer 1 drop into affected eye(s) 2 times daily. 10 mL 06/15/19 25 Active docusate sodium (Colace) 100 MG capsuleIndications :Other constipation Take 1 capsule (100 mg) by mouth if needed in the morning and at bedtime for constipation. 60 capsule 04/19/19 25 025 Active Problems Problem Noted Date Diagnosed Date Excessive sweating 06/14/2024 Assessment & Plan (06/14/2024 11:38 AM EDT): Menopause? Patient already being seen by endocrinology, pheochromocytoma is unlikely patient's blood pressure is normal, serotonin syndrome also unlikely she does not have diarrhea or any other symptoms Vasomotor symptoms due to menopause 06/14/2024 Chronic right shoulder pain 06/14/2024 Assessment & Plan (06/14/2024 11:36 AM EDT): X-ray ordered today patient will be contacted with results I will prescribe short course of ibuprofen 800 mg every 8 hours with full stomach Colon cancer screening 05/11/2024 Other constipation 04/01/2024 Osteopenia 01/22/2024 Allergic rhinitis 01/22/2024 Asymptomatic menopausal state 07/28/2023 Nontoxic multinodular goiter 05/07/2023 Overview (05/28/2023): Last Assessment & Plan: The patient has subcentimeter nodules. We cannot biopsy these at the present time because they are too small. I recommend repeating an ultrasound 11/20/2023. She should get this done at [facility]. Weight loss 04/28/2023 Assessment & Plan (04/28/2023 11:52 AM EDT): Labs ordered today I ordered also head/neck CT with contrast, patient will be contacted with results Allergic conjunctivitis of both eyes 04/28/2023 Head and neck lymphadenopathy 04/28/2023 Thyroid nodule 01/27/2023 Diaphoresis 12/24/2022 Overview (05/28/2023): Last Assessment & Plan: I could do extensive biochemical workup but the most likely etiology of diaphoresis is still Venlafaxine vaccine that the patient started taking in the summer that is when her symptoms started. She needs to contact the prescribing physician and discussed about discontinuing this medication and replacing with another antidepressant. I will give the patient a follow-up in December 2023 to review the thyroid ultrasound. Ringing in left ear 12/24/2022 Assessment & Plan (01/30/2023 12:04 PM EST): ENT referral information will be provided Enlarged thyroid 09/23/2022 Salivary gland enlargement 09/23/2022 Discoloration of skin of face 09/23/2022 Health care maintenance 06/25/2022 Assessment & Plan (06/25/2022 12:20 PM EDT): Mammogram up to date Has upcoming appointment with GI for colonoscopy PAP up to date Labs ordered Constipation 05/21/2022 Mild intermittent asthma 05/21/2022 Hypertension 01/29/2012 Assessment & Plan (05/11/2024 2:22 PM EDT): Maintenance: BMP: up to date Lipid Panel: up to date ASCVD Risk: 15.3% on simvastatin 20mg daily I advised: - Aerobic exercise to reduce BP. Initial goal of 30 min walk 3-5x/week. Increase as tolerated. - low-sodium diet (goal: <2g/day) and heart healthy diet such as DASH to reduce BP and prevent ASCVD. - Home BP monitoring 1-2 x day with goal of <140/90. - Seek immediate medical attention for chest pain, palpitations, SOB, syncope, or sudden changes in mental status. - Do not change or discontinue current prescriptions without first consulting health care provider Assessment & Plan (11/06/2023 10:46 AM EDT): I advise: - Aerobic exercise to reduce BP. Initial goal of 30 min walk 3-5x/week. Increase as tolerated. - low-sodium diet (goal: <2g/day) and heart healthy diet such as DASH to reduce BP and prevent ASCVD. - Home BP monitoring 1-2 x day with goal of <140/90. - Seek immediate medical attention for chest pain, palpitations, SOB, syncope, or sudden changes in mental status. - Do not change or discontinue current prescriptions without first consulting health care provider Assessment & Plan (04/28/2023 11:51 AM EDT): - Aerobic exercise to reduce BP. Initial goal of 30 min walk 3-5x/week. Increase as tolerated. - low-sodium diet (goal: <2g/day) and heart healthy diet such as DASH to reduce BP and prevent ASCVD. - Home BP monitoring 1-2 x day with goal of <140/90. - Seek immediate medical attention for chest pain, palpitations, SOB, syncope, or sudden changes in mental status. - Do not change or discontinue current prescriptions without first consulting health care provider Assessment & Plan (12/24/2022 9:33 AM EST): - Aerobic exercise to reduce BP. Initial goal of 30 min walk 3-5x/week. Increase as tolerated. - low-sodium diet (goal: <2g/day) and heart healthy diet such as DASH to reduce BP and prevent ASCVD. - Home BP monitoring 1-2 x day with goal of <140/90. - Seek immediate medical attention for chest pain, palpitations, SOB, syncope, or sudden changes in mental status. - Do not change or discontinue current prescriptions without first consulting health care provider Assessment & Plan (09/23/2022 11:21 AM EDT): - Aerobic exercise to reduce BP. Initial goal of 30 min walk 3-5x/week. Increase as tolerated. - low-sodium diet (goal: <2g/day) and heart healthy diet such as DASH to reduce BP and prevent ASCVD. - Home BP monitoring 1-2 x day with goal of <140/90. - Seek immediate medical attention for chest pain, palpitations, SOB, syncope, or sudden changes in mental status. - Do not change or discontinue current prescriptions without first consulting health care provider Assessment & Plan (06/25/2022 12:17 PM EDT): Maintenance: BMP: ordered today Lipid Panel: ordered today ASCVD Risk: Calculate pending updated labs - Aerobic exercise to reduce BP. Initial goal of 30 min walk 3-5x/week. Increase as tolerated. - low-sodium diet (goal: <2g/day) and heart healthy diet such as DASH to reduce BP and prevent ASCVD. - Home BP monitoring 1-2 x day with goal of <140/90. - Seek immediate medical attention for chest pain, palpitations, SOB, syncope, or sudden changes in mental status. - Do not change or discontinue current prescriptions without first consulting health care provider Hyperlipidemia 01/29/2012 Uterine leiomyoma 01/29/2012 Type 2 diabetes mellitus wit h hyperglycemia, without long-term current use of insulin 10/23/2011 Assessment & Plan (05/11/2024 2:24 PM EDT): Diabetes is: controlled - Lab Results Component Value Date HGBA1C 6.8 (A) 05/11/2024 HGBA1C 7.6 01/22/2024 HGBA1C 8.7 (A) 11/06/2023 - Lab Results Component Value Date MICROALBUR <5.0 07/28/2023 CREATININE 0.83 11/10/2023 -Changes: Ozempic was discontinue, she is now on insulin Lantus 12 units at bedtime fingersticks fluctuates between 124 and 145, plan is if fingerstick in the morning fasting is persistently higher than 142 to add 2 units - Diabetic eye exam: Up-to-date - Diabetic foot exam: Pending - Continue lifestyle modifications - Follow up: 3 months Assessment & Plan (01/22/2024 11:12 AM EST): Diabetes is: not controlled but improved - Lab Results Component Value Date HGBA1C 7.6 01/22/2024 HGBA1C 8.7 (A) 11/06/2023 HGBA1C 8.6 (A) 07/28/2023 - Lab Results Component Value Date MICROALBUR <5.0 07/28/2023 CREATININE 0.83 11/10/2023 -Changes: none - Diabetic eye exam:upcoming appointment - Diabetic foot exam:pending - Continue lifestyle modifications - Continue current medications, I educated patient that weight loss is an effect of new medication for diabetes but her BMI is ideal, I advise to continue using her medication as prescribed - Follow up: 3 months Assessment & Plan (11/06/2023 10:47 AM EDT): Diabetes is: not controlled - Lab Results Component Value Date HGBA1C 8.7 (A) 11/06/2023 HGBA1C 8.6 (A) 07/28/2023 HGBA1C 7.7 (A) 04/28/2023 - Lab Results Component Value Date MICROALBUR <5.0 07/28/2023 CREATININE 0.5 06/11/2023 -Changes: I will go up on ozempic to 2mg weekly - Diabetic eye exam:has appointment on 2024 - Diabetic foot exam:pending - Continue lifestyle modifications - Continue current medications - Follow up: 3 months Assessment & Plan (07/28/2023 10:12 AM EDT): Diabetes is: not controlled - Lab Results Component Value Date HGBA1C 8.6 (A) 07/28/2023 HGBA1C 7.7 (A) 04/28/2023 HGBA1C 7.7 (A) 12/24/2022 - Lab Results Component Value Date MICROALBUR 1.5 03/01/2020 CREATININE 0.77 04/29/2023 -Changes: I will d/c and start her on ozempic 1mg weekly - Diabetic eye exam:pending - Diabetic foot exam:has upcoming appointment - Continue lifestyle modifications - Continue current medications - Follow up: 3 months Assessment & Plan (04/28/2023 11:53 AM EDT): Diabetes is: almost at goal - Lab Results Component Value Date HGBA1C 7.7 (A) 04/28/2023 HGBA1C 7.7 (A) 12/24/2022 HGBA1C 8.4 (A) 09/23/2022 - Lab Results Component Value Date MICROALBUR 1.5 03/01/2020 CREATININE 0.81 07/02/2022 -Changes: none - Diabetic eye exam:pending - Diabetic foot exam:pending - Continue lifestyle modifications - Continue current medications - Follow up: 3 months Assessment & Plan (12/24/2022 9:33 AM EST): - Lab Results Component Value Date HGBA1C 7.7 (A) 12/24/2022 HGBA1C 8.4 (A) 09/23/2022 HGBA1C 8.2 (A) 06/25/2022 - Lab Results Component Value Date MICROALBUR 1.5 03/01/2020 CREATININE 0.81 07/02/2022 - Diabetic eye exam: has appointment in January 2023 - Diabetic foot exam: up to date - Continue lifestyle modifications - Continue current medications Assessment & Plan (09/23/2022 12:26 PM EDT): - Lab Results Component Value Date HGBA1C 8.4 (A) 09/23/2022 HGBA1C 8.2 (A) 06/25/2022 HGBA1C 8.2 (A) 05/21/2022 - Lab Results Component Value Date MICROALBUR 1.5 03/01/2020 CREATININE 0.81 07/02/2022 - Diabetic eye exam: up to date - Diabetic foot exam: pending - Continue lifestyle modifications - I increase trulicity to 4.5mg weekly Assessment & Plan (06/25/2022 12:19 PM EDT): A1c 8.2 - Lab Results Component Value Date HGBA1C 8.2 (A) 05/21/2022 HGBA1C 8.9 (H) 10/15/2021 HGBA1C 10.1 (H) 03/01/2020 - Lab Results Component Value Date MICROALBUR 1.5 03/01/2020 CREATININE 0.85 04/20/2021 CREATININE 0.85 04/20/2021 - - Diabetic eye exam: up to date - Diabetic foot exam: done today - Continue lifestyle modifications - Continue current medications (trulicity 3mg weekly) Assessment & Plan (05/21/2022 3:23 PM EDT): A1C 8.2 today fastings not at goal <110 PP not at goal <180 Called [facility] pharmacy, they are able to get Trulicty for patient at 3mg weekly dosing, order placed Also replaced Freestyle Lite so that patient can check her blood sugars as she has been, twice a day Wants to followup with her PCP for ongoing DM2 mgmt, appointment made for June Encounters Date Type Department Care Team Description 06/14/2024 11:15 AM EDT Office Visit [address] [address] Monica Francis MD Type 2 diabetes mellitus with hyperglycemia, without long-term current use of insulin (CMS/HCC); Excessive sweating; Vasomotor symptoms due to menopause; Chronic right shoulder pain; Allergic conjunctivitis of both eyes 06/14/2024 Travel 06/09/[address] [address] Monica Francis MD Chart prep 06/08/[address] [address] Monica Francis MD Nurse Triage 06/02/[address] [address] Monica Francis MD FYI 05/26/[address] [address] Monica Francis MD Nurse Triage 05/11/2024 10:45 AM EDT Office Visit [address] [address] Monica Francis MD Primary hypertension (Primary Dx); Type 2 diabetes mellitus with hyperglycemia, without long-term current use of insulin (CMS/HCC); Colon cancer screening 05/11/2024 Travel 05/02/2024 Patient Outreach [address] [address] Monica Francis MD Pre-visit Planning (SDOH screening negative and tobacco screening negative) 04/28/2024 10:00 AM EDT Telemedicine [address] [address] Abelino Devine, PharmD Type 2 diabetes mellitus with hyperglycemia, without long-term current use of insulin (CMS/HCC) (Primary Dx) 04/28/2024 Travel 04/18/2024 Orders Only [facility] [address] [place] [address] Monica Francis MD Constipation, unspecified constipation type (Primary Dx) 04/18/2024 Orders Only [facility] [address] [place] [address] Monica Francis MD Other constipation (Primary Dx) 04/18/2024 Telephone [facility] [address] [place] [address] Monica Francis MD telephone call 04/14/2024 Travel 04/14/2024 Refill [facility] [address] [place] [address] Monica Francis MD 04/11/2024 Refill [facility] [address] [place] [address] Anastasiya Torrez, 04/03/2024 Refill [facility] [address] [place] [address] Monica Francis MD 04/01/2024 Orders Only [facility] [address] [place] [address] Monica Francis MD Type 2 diabetes mellitus with hyperglycemia, without long-term current use of insulin (CMS/HCC) (Primary Dx); Other constipation 03/31/2024 Refill [facility] [address] [place] [address] Monica Francis MD Type 2 diabetes mellitus with hyperglycemia, without long-term current use of insulin (CMS/HCC) (Primary Dx) 03/18/2024 10:45 AM EST Office Visit [facility] [address] [place] [address] Yadira Eldridge MD Melasma (Primary Dx) 03/18/2024 Travel from Last 3 Months Immunizations Name Administration Dates Next Due Hep B, adult 10/23/2011 Influenza High-dose Quadriva lent Preservative Free 11/16/2022 Influenza Injectable Quadriv alant Preservative Free IIV4 MDCK 11/02/2021,10/30/2017 Influenza injectable quadriv alent IIV4 with preservative 11/06/2015,11/20/2014 Influenza injectable quadriv alent preservative free 10/22/2020,10/10/2018,11/05/2016 Influenza, High Dose Seasona l, Preservative Free 11/06/2023 Influenza, IIV3, injectable 11/14/2013, 0,11/24/2008 Influenza, Split (incl. alejandrina fied surface antigen) 12/31/2012,10/23/2011 Pfizer Covid-19 Vaccine 12+ 11/06/2023 Pfizer Covid-19 Vaccine 12+ shai-sucrose (Guerrero Cap) 10/15/2021 Pneumococcal Conjugate PCV 20 12/24/2022 Pneumococcal Polysaccharide PPSV23 11/16/2006 RSV Adjuvant 11/16/2022 TD (adult), 2 Lf tetanus tox oid, preservative free, adsorbed 11/27/2009 Tdap 10/23/2011 Zoster, live 10/01/2012 Social History Tobacco Use Types Packs/Day Years Used Date Smoking Tobacco: Never Passive Smoke Exposure: Never Smokeless Tobacco: Never Tobacco Cessation:Counseling Given: Not Answered Alcohol Use Standard Drinks/Week Comments Never 0 [...] Orientation Straight 05/01/2022 2: 08 PM EDT Last Filed Vital Signs Vital Sign Reading Time Taken Comments Blood Pressure 128/71 06/14/2024 10:53 AM EDT Pulse 74 06/14/2024 10:53 AM EDT Temperature 36.2 ??C (97.2 ??F) 06/14/2024 10:53 AM E DT Respiratory Rate 17 06/14/2024 10:53 AM EDT Oxygen Saturation 98% 06/14/2024 10:53 AM EDT Inhaled Oxygen Concentration - - Weight 54 kg (119 lb) 06/14/2024 10:53 AM EDT Height 154.9 cm (5' 1 ) 06/14/2024 10:53 AM EDT Body Mass Index 22.48 06/14/2024 10:53 AM EDT Plan of Treatment Upcoming Encounters Date Type Department Care Team (Late st Contact Info) Description 06/17/2024 9:00 AM EDT Medication Management [facility] [address] [place] [address] Abelino Devine, PharmD [address] [place] [address] Health Maintenance Due Date Last Done Comments CT Colonography 1955 Colonoscopy 1955 Colorectal Cancer Screening 1955 Dental X-Ray: Full Mouth 1955 FIT DNA/Cologuard 1955 FIT 1955 FOBT 1955 Sigmoidoscopy 1955 Eye Exam 08/26/1967 Hepatitis B Vaccines (2 of 3 - 19+ 3-dose series) 11/20/2011 10/23/2011 Zoster Vaccines (2 of 3) 11/26/2012 10/01/2012 DTaP/Tdap/Td Vaccines (2 - Td or Tdap) 10/22/2021 10/23/2011, 11/27/2009 Diabetes: Foot Exam 06/26/2023 06/25/2022, Dental Oral Exam 11/07/2023 05/06/2023, 05/01/2022 Dental Prophylaxis 11/07/2023 05/06/2023, 05/01/2022 Alcohol/Substance Use Screening 07/27/2024 07/28/2023 Depression Screening 07/27/2024 07/28/2023, 07/28/19 Diabetes: Urine Protein Screening 07/27/2024 07/28/2023, 07/02/2022, 04/20/2021, Additional history exists Dental X-Ray: Bitewings 08/14/2024 08/14/19 24, 05/06/2023, 05/01/2022 Lipid Panel 11/09/2024 11/10/2023, 06/16, 04/20/2021, Additional history exists Diabetes: Hemoglobin A1C 11/11/2024 025, 01/22/2024, 11/06/2023, Additional history exists Mammogram 01/11/2025 01/12/2024, 12/18, 01/06/2023, Additional history exists SDOH Screening 05/02/2025 05/02/2024 Tobacco Screening 06/14/2025 06/14/2024 HPV/Cotest 11/08/2026 11/08/2021, 10/28/2016 Pap Smear 11/08/2026 11/08/2021 RSV Patients and Patients Aged 60 years or older Completed 11/16/2022 Pneumococcal Vaccine: 50+ Years Completed 12/24/2022, 11/16/2006 Hepatitis C Screening Completed 04/29/2023 COVID-19 Vaccine Completed 11/06/2023, 03/2022, 10/15/2021, Additional history exists Influenza Vaccine Completed 11/06/2023, , 11/02/2021, Additional history exists HIB Vaccines Aged Out No longer eligi ble based on patient's age to complete this topic HPV Vaccines Aged Out No longer eligi ble based on patient's age to complete this topic Hepatitis A Vaccines Aged Out No long er eligible based on patient's age to complete this topic IPV Vaccines Aged Out No longer eligi ble based on patient's age to complete this topic Meningococcal Vaccine Aged Out No dawn aba eligible based on patient's age to complete this topic RSV under 20 months Aged Out No longe r eligible based on patient's age to complete this topic Rotavirus Vaccines Aged Out No longer eligible based on patient's age to complete this topic Procedures Procedure Name Priority Date/Time Associated Diagnosis Comments XR SHOULDER 2+ VIEWS RIGHT Routine 06/14/2024 11:47 AM EDT Chronic right shoulder pain POCT GLUCOSE Routine 06/14/2024 10:54 AM EDT Type 2 diabetes mellitus with hyperglycemia, without long-term current use of insulin ([facility]) POCT GLYCATED HEMOGLOBIN, TOTAL Routine 05/11/2024 10:50 AM EDT Type 2 diabetes mellitus with hyperglycemia, without long-term current use of insulin (CMS/HCC) POCT GLUCOSE Routine 05/11/2024 10:50 AM EDT Type 2 diabetes mellitus with hyperglycemia, without long-term current use of insulin (CMS/HCC) BI MAMMOGRAM DIAGNOSTIC TOMOSYNTHESIS BILATERAL Routine 01/12/2024 10:55 AM EST LIPID PANEL WITH REFLEX TO DIRECT LDL Routine 11/10/2023 9:37 AM EDT Type 2 diabetes mellitus with hyperglycemia, without long-term current use of insulin (CMS/HCC) Primary hypertension BITEWING - SINGLE RADIOGRAPHIC IMAGE Routine 08/14/2023 8:00 AM EDT Full coverage crown needed for root canal-treated tooth ALBUMIN, RANDOM URINE W/CREATININE Routine 07/28/2023 10:18 AM EDT Full PROPHYLAXIS - ADULT Routine 05/06/2023 11:00 AM EDT Teeth missing Encounter for dental examination Dental caries PERIODIC ORAL EVALUATION - ESTABLISHED PATIENT Routine 05/06/2023 11:00 AM EDT Teeth missing Encounter for dental examination Dental caries HEPATITIS C AB W/REFL TO HCV RNA, QN, PCR Routine 04/29/2023 8:53 AM EDT Weight loss THINPREP IMAGING PAP AND HPV MRNA E6/E7 WITH REFLEX TO HPV 16,18/45 Routine 11/08/2021 12:00 AM EDT from Last 3 Months or Most Recently Relevant to Health Maintenance Results * XR Shoulder 2+ Views Right (06/14/2024 11:47 AM EDT) Anatomical Region Laterality Modality Upper Extremities, Shoulder Right Radi ographic Imaging 06/14/2024 11:4 7 AM EDT Narrative 06/14/2024 1:13 PM EDT ?[facility] ?[address] ?[place] [address] ?XRay Report ? Signed ? Patient: Cony Saez ?MR#: [id number] ?? 2 ? : 1955 ?Acct:[id number] ? Age/Sex: 68 / F ?ADM Date: 06/14/24 ? Loc: HO.HHCX ? Attending Dr: Monica Briceno MD ? Ordering Physician: Monica Francis MD ?? Date of Service: 06/14/24 ?? Procedure(s): XR shoulder RT min 2V ?? Accession Number(s): [id number] ? cc: Monica Francis MD ? EXAMINATION: ?? XR SHOULDER, RIGHT ? CLINICAL INFORMATION: ?? PAIN ? COMPARISON: ?? X-ray dated January 06, 2013 is not available on PACS. ? TECHNIQUE: ?? AP external rotation, Grashey, scapular Y, and axillary views of the ?? right shoulder. ? FINDINGS: ?? Degenerative changes in the acromioclavicular joint. No acute cortical ?? disruption or malalignment. No lytic or blastic lesions. Subtle ?? calcifications within the supraspinatus tendon insertion. ? XR/XR shoulder RT min 2V ?? IMPRESSION: ?? Tendinosis versus tendinopathy, supraspinatus. ?? Degenerative changes acromioclavicular joint. ? Electronically signed by: ??Yaw Michelle MD ??06/14/2024 01:10 PM ?? EDT RP ? Dictated By: ?Yaw Mohr MD ? Signed By: ?<Electronically signed by Yaw Cullen MD in OV> ? 06/14/24 1310 ? DD/ [id number] ? TD/TT: 06/14/24 1200 ? Chief Bank Examiner: ? Procedure Note Donotbhaskarinterpreter, Image - 06/14/2024 [place] [address] XRay Report Signed Patient: Blank Saez#: [id number] 2 : 1955cct:[id number] Age/Sex: 68 / FADM Date: 06/14/24 Loc: HO.HHCX Attending Dr: Monica Briceno MD Ordering Physician: Monica Francis MD Date of Service: 06/14/24 Procedure(s): XR shoulder RT min 2V Accession Number(s): [id number] cc: Monica Francis MD EXAMINATION: XR SHOULDER, RIGHT CLINICAL INFORMATION: PAIN COMPARISON: X-ray dated January 06, 2013 is not available on PACS. TECHNIQUE: AP external rotation, Grashey, scapular Y, and axillary views of the right shoulder. FINDINGS: Degenerative changes in the acromioclavicular joint. No acute cortical disruption or malalignment. No lytic or blastic lesions. Subtle calcifications within the supraspinatus tendon insertion. XR/XR shoulder RT min 2V IMPRESSION: Tendinosis versus tendinopathy, supraspinatus. Degenerative changes acromioclavicular joint. Electronically signed by: Yaw Michelle MD 06/14/2024 01:10 PM EDT RP Dictated By: Yaw Mohr MD Signed By: <Electronically signed by Yaw Cullen MDin OV> 06/14/24 1310 DD/ 1147 TD/TT: 06/14/24 1200 Chief Bank Examiner: Monica Briceno MD IMG XR PROCEDURES Fin al Result * POCT Glucose (06/14/2024 10:54 AM EDT) Only the most recent of2 resultswithin the time period is included. Glucose Blood, POC 181 60 - 200 mg/dL Comment:Random QC Media Lot # [id number] Lot# Expiration Date ,025 Blood Capillary blood specimen / Unknown 06/14/2024 10:54 AM EDT Monica Briceno MD POINT OF CARE TEST EN TER/EDIT ORDERABLES Final Result * (ABNORMAL) POCT HGB A1C (05/11/2024 10:50 AM EDT) Hemoglobin A1C 6.8(A) 4.0 - 6.0 % QC Media Lot # [id number] Lot# Expiration Date 05,026 Blood 05/11/2024 10:5 0 AM EDT Monica Briceno MD POINT OF CARE TEST EN TER/EDIT ORDERABLES Final Result * BI Mammogram Diagnostic Tomosynthesis Bilateral (01/12/2024 10:55 AM EST) Anatomical Region Laterality Modality Breast Bilateral Mammography 01/12/2024 10:5 5 AM EST Narrative 01/12/2024 11:48 AM EST ? [facility] ? [address] ?[place] [address] ? Mammography Report ? Signed ? Patient: Saez,Cony ?MR#: [id number] ?? 2 ? : 1955 ?Acct:[id number] ? Age/Sex: 68 / F ?ADM Date: 01/12/24 ? Loc: HO.MAMMO ? Attending Dr: Monica Briceno MD ? Ordering Physician: Monica Francis MD ?Results: ?? 2Benign Findings ? Date of Service: 01/12/24 ?Follow Up: 1 Year From Orig ?? inal Mammogram ? Procedure(s): MM tomosynthesis diagnostic BI ?? Accession Number(s): [id number] ? cc: Monica Francis MD ? EXAMINATION: ?? MM DIAGNOSTIC DIGITAL BREAST TOMOSYNTHESIS, BILATERAL ?? US BREAST LIMITED, RIGHT ? MAMMOGRAPHY: ?? CLINICAL INFORMATION: ? Six-month follow-up (for two-year stability) probably benign ?? complicated cyst right breast measuring 6 mm. Patient also due for ?? yearly screening. ? COMPARISON: ?? Mammography: 01/06/2023, 06/26/2022, 12/31/2021 (BI-RADS 0), ?? 12/12/2021, 12/10/2020, 12/08/2019. ?? Ultrasound: 01/06/2023, 06/26/2022, 12/31/2021. ? TECHNIQUE: ?? Digital breast tomosynthesis is performed in both the craniocaudal and ?? mediolateral oblique views along with computer-aided detection (CAD). ?? Synthesized 2D images are generated from the tomosynthesis. In ?? addition, added full-field 3-D right CC nipple in profile view, and ?? bilateral added 3-D MLO nipple in profile views were obtained. This was ?? followed by targeted right breast ultrasound in the 11:00 axis. ? FINDINGS: ?? There are scattered areas of fibroglandular density (ACR BI-RADS breast ?? composition Category b). ? Overall mass at 11:00 right breast, mid depth, circumscribed, measuring ?? approximately 7 mm. This appears stable. ?? There are vascular calcifications. There are no suspicious masses, ?? suspicious grouped calcifications, or areas of architectural distortion ?? in either breast. The parenchymal pattern is stable from prior exams. ?? There is no skin or axillary abnormality. ? ULTRASOUND: ?? CLINICAL INFORMATION: ?? As above. Septated cyst final follow-up (for 2 year stability) 11:00 ?? axis right breast, measuring 6 mm. ? COMPARISON: ?? 01/06/2023, 06/26/2022, 12/31/2021. ? TECHNIQUE: ?? Targeted sonographic evaluation was performed using a high frequency ?? linear transducer. Attention was given to the 11:00 axis right breast. ? Selected archived documentation. ? FINDINGS: ? RIGHT BREAST: ?? At the 11:00 axis right breast, 3 cm from the nipple, there is a stable ?? 6 mm cyst with a solitary thin septation, unchanged from prior exams, ?? and benign. No suspicious features or significant change. This finding ?? is benign. No further follow-up recommended. ? MM/MM tomosynthesis diagnostic BI ?? IMPRESSION: ?? 1. There are no findings suspicious for malignancy in either breast. ?? 2. Benign septated cyst measuring 6 mm right breast 11:00 axis. This ?? has been stable over 2 years. No further follow-up recommended. ?? 3. Recommend the patient resume routine annual screening mammography. ? OVERALL ASSESSMENT: ?? Mammography: BI-RADS 2 - Benign Findings ?? Ultrasound: BI-RADS 2 - Benign Findings ? RECOMMENDATION: ?? 1 year F/U ? This patient's information was entered into a reminder system with a ?? target due date for their next mammogram. ? Electronically signed by: ??Patrick Holt MD ??01/12/2024 11:44 AM EST RP ?? Workstation: [id number] ? Dictated By: ?Patrick Holt MD ? Signed By: ?<Electronically signed by Patrick Holt MD in OV> ?01/12/24 1144 ? DD/ 1055 ? TD/TT: 01/12/24 1117 ? Chief Bank Examiner: ? Procedure Note Donroxanneinterpreter, Image - 01/12/2024 [facility] [address] [place] [address] Mammography Report Signed Patient: Blank Saez#: [id number] 2 : 8Acct:[id number] Age/Sex: 68 / FADM Date: 01/12/24 Loc: HO.MAMMO Attending Dr: Monica Briceno MD Ordering Physician: Monica Francis MDResults: 2Benign Findings Date of Service: 01/12/24Follow Up: 1 Year From Orig inal Mammogram Procedure(s): MM tomosynthesis diagnostic BI Accession Number(s): [id number] cc: Monica Francis MD EXAMINATION: MM DIAGNOSTIC DIGITAL BREAST TOMOSYNTHESIS, BILATERAL US BREAST LIMITED, RIGHT MAMMOGRAPHY: CLINICAL INFORMATION: Six-month follow-up (for two-year stability) probably benign complicated cyst right breast measuring 6 mm. Patient also due for yearly screening. COMPARISON: Mammography: 01/06/2023, 06/26/2022, 12/31/2021 (BI-RADS 0), 12/12/2021, 12/10/2020, 12/08/2019. Ultrasound: 01/06/2023, 06/26/2022, 12/31/2021. TECHNIQUE: Digital breast tomosynthesis is performed in both the craniocaudal and mediolateral oblique views along with computer-aided detection (CAD). Synthesized 2D images are generated from the tomosynthesis. In addition, added full-field 3-D right CC nipple in profile view, and bilateral added 3-D MLO nipple in profile views were obtained. This was followed by targeted right breast ultrasound in the 11:00 axis. FINDINGS: There are scattered areas of fibroglandular density (ACR BI-RADS breast composition Category b). Overall mass at 11:00 right breast, mid depth, circumscribed, measuring approximately 7 mm. This appears stable. There are vascular calcifications. There are no suspicious masses, suspicious grouped calcifications, or areas of architectural distortion in either breast. The parenchymal pattern is stable from prior exams. There is no skin or axillary abnormality. ULTRASOUND: CLINICAL INFORMATION: As above. Septated cyst final follow-up (for 2 year stability) 11:00 axis right breast, measuring 6 mm. COMPARISON: 01/06/2023, 06/26/2022, 12/31/2021. TECHNIQUE: Targeted sonographic evaluation was performed using a high frequency linear transducer. Attention was given to the 11:00 axis right breast. Selected archived documentation. FINDINGS: RIGHT BREAST: At the 11:00 axis right breast, 3 cm from the nipple, there is a stable 6 mm cyst with a solitary thin septation, unchanged from prior exams, and benign. No suspicious features or significant change. This finding is benign. No further follow-up recommended. MM/MM tomosynthesis diagnostic BI IMPRESSION: 1. There are no findings suspicious for malignancy in either breast. 2. Benign septated cyst measuring 6 mm right breast 11:00 axis. This has been stable over 2 years. No further follow-up recommended. 3. Recommend the patient resume routine annual screening mammography. OVERALL ASSESSMENT: Mammography: BI-RADS 2 - Benign Findings Ultrasound: BI-RADS 2 - Benign Findings RECOMMENDATION: 1 year F/U This patient's information was entered into a reminder system with a target due date for their next mammogram. Electronically signed by: Patrick Holt MD 01/12/2024 11:44 AM EST Dictated By: Patrick Holt MD Signed By: <Electronically signed by Patrick Holt MD in OV> 01/12/24 1144 DD/ 1055 TD/TT: 01/12/24 1117 Chief Bank Examiner: us Monica Briceno MD IMG BI PROCEDURES Fin al Result * (ABNORMAL) Lipid Panel with Reflex to Direct LDL (11/10/2023 9:37 AM EDT) Triglycerides 160(H) <150 mg/dL [facility] Comment:Desirable Triglyceri de: less than 150 mg/dLBorderline High Triglyceride 150-199 mg/dLHigh Triglyceride: 200-499 mg/dLVery High Triglyceride: greater than or equal to 5OO mg/dL Cholesterol 163 <200 mg/dL [facility] Comment:Desirable Cholestero l: less than 200 mg/dLBorderline High Cholesterol: 200-239 mg/dLHigh Cholesterol: greater than 239 mg/dL LDL Cholesterol Calculated 84 <100 mg/dL [facility] Comment:Desirable LDL: less than 100 mg/dLNear Optimal/Above Optimal LDL: 110- 129 mg/dLBorderline High LDL: 130-159 mg/dLHigh LDL: 160-189 mg/dLVery High LDL: greater than or equal to 190 mg/dL HDL Cholesterol 47 >40 mg/dL [facility] Comment:Desirable HDL: great er than 40 mg/dL Note: This HDL assay may give artificially low results in patients with liver disease. Blood 11/10/2023 9:37 AM EDT 11/10/2023 11:20 AM EDT us Monica Briceno MD LAB BLOOD ORDERABLES Final Result [facility] [address] [place] [address] [phone] * Albumin, Random Urine W/Creatinine (07/28/2023 10:18 AM EDT) Creatinine, Urine 40.48 mg/dL [facility] Microalbumin Urine <5.0 mg/L [facility] Microalbum Creatinine Ratio Ur TNP <30 ug/mg cr [facility] Comment:Unable to calculate albumin/creatinine ratio due to lowmicroalbumin or creatinine result. 07/28/2023 10:1 8 AM EDT 07/28/2023 11:14 AM EDT Monica Briceno MD LAB URINE ORDERABLES Final Result Performing Organization Address [facility]/ZIP Co de Phone Number [facility] [address] [place] [address] [phone] * Hepatitis C Antibody with Reflex to HCV, RNA, Quantitative, Real-Time PCR (04/29/2023 8:53 AM EDT) Hepatitis C Antibody Nonreactive Nonreactive [facility] Comment:Antibodies to HCV no t detected; does not exclude early acuteHCV infection. Blood Venous blood specimen / Unknown 04/29/2023 8:53 AM EDT 04/29/2023 11:14 AM EDT Monica Briceno MD LAB BLOOD ORDERABLES Final Result Performing Organization Address [facility]/ZIP Co de Phone Number [facility] [address] [place] [address] [phone] * THINPREP TIS PAP AND HPV mRNA E6/E7 WITH REFLEX TO HPV 16,18/45 (11/08/2021 12:00 AM EDT) Clinical Information: None given [facility] COMMENT SEE COMMENT [facility] Comment: EXPLANATORY NOTE: ? The Pap is a screening test for cervical cancer. It is ?? not a diagnostic test and is subject to false negative ?? and false positive results. It is most reliable when a ?? satisfactory sample, regularly obtained, is submitted ?? with relevant clinical findings and history, and when ?? the Pap result is evaluated along with historic and ?? current clinical information. ?? COMMENT: This Pap test has been evaluated with computer assisted technology. [facility] Cytotechnologis t: SEE COMMENT [facility] Comment: JUSTICE, CT(ASCP) CT screening location: [address] ??[address] HPV nRNA E6/E7 Not Detected Not Detected [facility] Comment: Methodology: Clinical Psychologist-Mediated Amplification This assay detects E6/E7 viral messenger RNA (mRNA) from 14 high-risk HPV types (16,18,31,33,35,39,45,51,52,56,58,59,66,68). ? Cervical sources are required for HPV testing. If a vaginal source from a patient who has had a total hysterectomy with removal of cervix was ?? submitted, please contact the testing laboratory for alternative testing options. ?? For additional information, please refer to http://education.[employer]/faq/MNI496i7 (This link if provided for information/ educational purposes only.) Infection Fungal organisms morphologically consistent with Susan spp. [facility] Interpretation/ Result: Negative for intraepithelial lesion or malignancy. [facility] LMP: NONE [facility]IVEN [facility] Prev. BX: NONE [facility]IV[facility] Prev. PAP: NONE [facility]IV[facility] SOURCE: None given [facility] Statement Of Adequacy: SEE COMMENT [facility] Comment: Satisfactory for evaluation. Endocervical/transformation zone component present. 11/08/2021 Monica Briceno MD LAB PATHOLOGY ORDERAB LES Final Result Performing Organization Address City/State/[facility] Co de Phone Number [facility] [address] from Last 3 Months or Most Recently Relevant to Health Maintenance Insurance [facility] MEDICARE ADVANTAGE [facility]MO [facility] Care Teams Oil Well Service Operator Relationship Specialty Start Date End Date Monica Francis MD [address] [place] [phone] PCP - General Family Medicine 10/28/17 Abelino Devine, PharmD [address] [place] [address] Pharmacist Internal Medicine 05/03/24
--- OUTSIDE RECORDS SUMMARY | 2024-06-14 13:49 | XMS_ITS | Encounter Summary ---
Author Organization [employer] [facility] Address [address] [facility] 7[address] [place] [address] Care Team Providers Care Residential Assistant Name Role Phone Monica Francis MD Primary Care Provide r Abelino Devine PharmD Unavailable [phone] Reason for Referral * Consultation (Routine) - Authorized Specialty Diagnoses / Procedures Referred By Contac roberta Referred To Contact Midwifery Diagnoses Vasomotor symptoms due to menopause Monica Francis MD [address] [place] [address] Phone: tel: fax: Jammie Hewitt CNM [address] [place] [address] Phone: tel: fax: Referral ID Status Reason Start Date Expiration Date Visits Requested Visits Authorized [id number] Authorized Consult and Treat 06/14/2024 06/14/2025 1 1 Encounter Details Date Type Department Care Team (Latest Contact Info) Description 06/14/2024 11:15 AM EDT Office Visit [facility] MEDICINE [address] [place] [address] [phone] Monica Francis MD [address] [place] [phone] Type 2 diabetes mellitus with hyperglycemia, without long-term current use of insulin (CMS/HCC); Excessive sweating; Vasomotor symptoms due to menopause; Chronic right shoulder pain; Allergic conjunctivitis of both eyes Social History Tobacco Use Types Packs/Day Years [...] PM EDT documented as of this encounter Last Filed Vital Signs Vital Sign Reading [...] Mass Index 22.48 06/14/2024 10:53 AM EDT documented in this encounter Progress Notes * Monica Briceno MD - 06/14/2024 11:15 AM EDT SUBJECTIVE: Cony Costa is a 68 y.o. year old female who presents for sick visit . Acute Concerns: Right shoulder pain after listing heavy object Excessive sweating; patient already seen by endocrinology it was recommended to stop venlafaxine which was stopped but she continue with this symptoms Patient today also complains of bilateral eye itchiness redness and tearing, she reports this happens in spring time Social History Social History Narrative Not on file Patient Active Problem List Diagnosis Constipation Type 2 diabetes mellitus with hyperglycemia, without long-term current use of insulin ([facility]) Hypertension Hyperlipidemia Mild intermittent asthma Uterine leiomyoma Health care maintenance Enlarged thyroid Salivary gland enlargement Discoloration of skin of face Diaphoresis Ringing in left ear Thyroid nodule Weight loss Allergic conjunctivitis of both eyes Head and neck lymphadenopathy Nontoxic multinodular goiter Asymptomatic menopausal state Osteopenia Allergic rhinitis Other constipation Colon cancer screening Excessive sweating Vasomotor symptoms due to menopause Chronic right shoulder pain No family history on file. Review of Systems Constitutional: Positive for diaphoresis. Negative for activity change, appetite change, chills, fatigue, fever and unexpected weight change. HENT: Negative. Respiratory: Negative. Cardiovascular: Negative. Musculoskeletal: Positive for arthralgias. OBJECTIVE: Vitals: 06/14/24 1053 BP: 128/71 BP Location: Left arm Patient Position: Sitting BP Cuff Size: Adult Pulse: 74 Resp: 17 Temp: 97.2 ??F (36.2 ??C) TempSrc: Oral SpO2: 98% Weight: 119 lb (54 kg) Height: 5' 1 (1.549 m) Physical Exam Constitutional: Appearance: Normal appearance. Cardiovascular: Rate and Rhythm: Normal rate and regular rhythm. Pulmonary: Effort: Pulmonary effort is normal. Breath sounds: Normal breath sounds. Abdominal: General: Abdomen is flat. Palpations: Abdomen is soft. Musculoskeletal: Right lower leg: No edema. Left lower leg: No edema. Neurological: Mental Status: She is alert. Follow Up: No follow-ups on file. Current Outpatient Medications on File Prior to Visit Medication Sig Dispense Refill ascorbic acid (Vitamin C) 1000 MG tablet Take 1,000 mg by mouth Once per day. Purchases OTC. aspirin 81 MG EC tablet Take 1 tablet (81 mg) by mouth Once per day. 30 tablet 11 Blood Glucose Monitoring Suppl ([employer]) w/Device kit 1 each 2 times daily. TEST BLOOD SUGARTWICE A DAY 1 kit 0 calcium carbonate (Calcium 600) 600 MG tablet Take 600 mg by mouth Once per day. Purchases OTC. cholecalciferol (Vitamin D-3) 25 MCG tablet TAKE 1 TABLET BY MOUTH EVERY DAY 90 tablet 1 Collagen-Vitamin C-Biotin (COLLAGEN PO) Take 1 capsule by mouth Once per day. Purchases OTC cromolyn (Opticrom) 4 % ophthalmic solution Administer 1 drop into affected eye(s) 4 times daily. diphenhydrAMINE (Banophen) 25 MG capsule Take 1 capsule (25 mg) by mouth every 6 (six) hours if needed for itching. 30 capsule 2 glipiZIDE XL (Glucotrol XL) 10 MG 24 hr tablet TAKE 1 TABLET BY MOUTH TWICE DAILY 180 tablet 1 hydroquinone 4 % cream Apply topically 2 times daily. 28.35 g 3 insulin glargine (Lantus) 100 UNIT/ML injection Inject 12 Units under the skin at bedtime. 10 mL 12 insulin syringe U-100 0.5 mL [facility] Use as instructed 100 each 12 Lancets (Glu Mobileuch Delica Plus Lpfled39E) [facility] USE TO TEST BLOOD SUGAR TWICE DAILY 100 each 11 Lancets misc 1 each Once per day. Patient needs one touch lancet devise 100 each 2 lisinopril 5 MG tablet TAKE 1 TABLET BY MOUTH EVERY DAY 90 tablet 1 OneTouch Verio test strip USE TEST BLOOD SUGAR TWICE DAILY 50 strip 11 polyethylene glycol, PEG, 3350 (MiraLax) 17 GM/SCOOP powder Take 17 g by mouth Once per day. 527 g 2 simvastatin (Zocor) 20 MG tablet TAKE 1 TABLET BY MOUTH EVERY DAY IN THE EVENING 90 tablet 1 No current facility-administered medications on file prior to visit. Problem List Items Addressed This Visit Type 2 diabetes mellitus with hyperglycemia, without long-term current use of insulin ([facility]) Relevant Orders POCT Glucose (Completed) Excessive sweating Menopause? Patient already being seen by endocrinology, pheochromocytoma is unlikely patient's blood pressure is normal, serotonin syndrome also unlikely she does not have diarrhea or any other symptoms Vasomotor symptoms due to menopause Relevant Orders Referral to Gynecology (Jammie) Chronic right shoulder pain X-ray ordered today patient will be contacted with results I will prescribe short course of ibuprofen 800 mg every 8 hours with full stomach Relevant Medications ibuprofen 800 MG tablet Other Relevant Orders XR Shoulder 2+ Views Right Allergic conjunctivitis of both eyes Relevant Medications Ketotifen Fumarate 0.035 % solution documented in this encounter Miscellaneous Notes * Assessment & Plan Note - Monica Briceno MD - 06/14/2024 11:38 AM EDT Associated Problem(s): Excessive sweating Menopause? Patient already being seen by endocrinology, pheochromocytoma is unlikely patient's blood pressure is normal, serotonin syndrome also unlikely she does not have diarrhea or any other symptoms * Assessment & Plan Note - Monica Briceno MD - 06/14/2024 11:36 AM EDT Associated Problem(s): Chronic right shoulder pain X-ray ordered today patient will be contacted with results I will prescribe short course of ibuprofen 800 mg every 8 hours with full stomach documented in this encounter Plan of Treatment Upcoming Encounters Date Type Department Care Team (Late st Contact Info) Description 06/17/2024 9:00 AM EDT Medication Management [facility] MEDICINE [address] [place] [address] Abelino Devine, PharmD [address] [place] [address] Scheduled Referrals Name Type Priority Associated Diagnoses Order Schedule Referral to Gynecology (Jammie) Outpatient Referral Routine Vasomotor symptoms due to menopause Expected: 06/14/2024 (Approximate), Expires: 06/14/2025 documented as of this encounter Procedures Procedure Name Priority Date/Time Associated Diagnosis Comments XR SHOULDER 2+ VIEWS RIGHT Routine 06/14/2024 11:47 AM EDT Chronic right shoulder pain POCT GLUCOSE Routine 06/14/2024 10:54 AM EDT Type 2 diabetes mellitus with hyperglycemia, without long-term current use of insulin ([facility]) documented in this encounter Results * XR Shoulder 2+ Views Right (06/14/2024 11:47 AM EDT) Anatomical Region Laterality Modality Upper Extremities, Shoulder Right Radi ographic Imaging 06/14/2024 11:4 7 AM EDT Narrative 06/14/2024 1:13 PM EDT ?[facility] ?[address] ?[place] [address] ?XRay Report ? Signed ? Patient: Saez,Cony ?MR#: [id number] ?? 2 ? : 1955 ?Acct:[id number] ? Age/Sex: 68 / F ?ADM Date: 06/14/ ? Loc: HO.HHCX ? Attending Dr: Monica Briceno MD ? Ordering Physician: Monica Francis MD ?? Date of Service: 06/14/24 ?? Procedure(s): XR shoulder RT min 2V ?? Accession Number(s): [id number] ? cc: Monica Francis MD ? EXAMINATION: [...] DD/ 1147 ? TD/TT: 06/14/24 1200 ? Surgical Corsetier: ? Procedure Note Alayna Seymour - 06/14/[address] [address] XRay Report Signed Patient: Blank Saez#: [id number] 2 : 8Acct:[id number] Age/Sex: 68 / FADM Date: 06/14/24 Loc: HO.HHCX Attending Dr: Monica Briceno MD Ordering Physician: Monica Francis MD Date of Service: 06/14/24 Procedure(s): XR shoulder RT min 2V Accession Number(s): [id number] cc: Monica Francis MD EXAMINATION: XR SHOULDER, [...] 06/14/24 1310 DD/ 1147 TD/TT: 06/14/24 1200 Surgical Corsetier: us Monica Briceno MD IMG XR PROCEDURES Fin al Result * POCT Glucose (06/14/2024 10:54 AM EDT) Glucose Blood, POC 181 60 - 200 mg/dL Comment:Random QC Media Lot # [id number] Lot# Expiration Date Blood Capillary blood specimen / Unknown 06/14/2024 10:54 AM EDT us Monica Briceno MD POINT OF CARE TEST EN TER/EDIT ORDERABLES Final Result documented in this encounter Visit Diagnoses Diagnosis Type 2 diabetes mellitus with hyperglycemia, without long-term current use of insulin ([facility]) Excessive sweating Generalized hyperhidrosis Vasomotor symptoms due to menopause Chronic right shoulder pain Pain in joint, shoulder region Allergic conjunctivitis of both eyes Other chronic allergic conjunctivitis documented in this encounter Additional Health Concerns Assessment Noted Time PHQ-9 Depression Total Score: 0 07/28/19 24 10:07 AM EDT documented as of this encounter Care Teams Residential Assistant Relationship Specialty Start Date End Date Monica Francis MD [address] [place] [address] PCP - General Family Medicine 10/28/17 Abelino Devine, Wilber [address] [place] [address] Pharmacist Internal Medicine 05/03/24 documented as of this encounter
--- OUTSIDE RECORDS SUMMARY | 2024-06-14 13:49 | XMS_ITS | Encounter Summary ---
Author Organization [facility] Address [address] [facility] 7t [place] [address] Care Team Providers Care Head Of Operation And Logistics Name Role Phone Monica Francis MD Primary Care Provide r Abelino Devine PharmD Unavailable [phone] Encounter Details Date Type Department Care Team (Late st Contact Info) Description 03/31/2022 Orders Only [facility] MEDICINE [address] [place] [address] Anastasiya Torrez DO [address] [place] [address] Social History Tobacco Use Types Packs/Day Years Used Date Smoking Tobacco: Never Assessed Comments Unknown Sex and Gender Information Value [...] Description 06/17/2024 9:00 AM EDT Medication Management [facility] MEDICINE [address] [place] [address] Abelino Devine, PharmD [address] [place] [address] documented as of this encounter Visit Diagnoses Not on filedocumented in this encounter Care Teams Head Of Operation And Logistics Relationship Specialty Start Date End Date Monica Francis MD [address] [place] [address] PCP - General Family Medicine 10/28/17 Abelino Devine, RobbieD [address] [place] [address] Pharmacist Internal Medicine 05/03/24 documented as of this encounter
--- OUTSIDE RECORDS SUMMARY | 2024-06-14 13:49 | XMS_ITS | Encounter Summary ---
Author Organization [employer] Address [address] [facility] 7t [place] [address] Care Team Providers Care Refrigerator Glazier Name Role Phone Monica Francis MD Primary Care Provide r Abelino Devine PharmD Unavailable [phone] Encounter Details Date Type Department Care Team ([facility] st Contact Info) Description 03/05/2023 Telephone [facility] MEDICINE [address] [place], [place] [phone] Monica Francis MD [address] [place], [place] [phone] Social History Tobacco Use Types Packs/Day Years [...] Description 06/17/2024 9:00 AM EDT Medication Management [facility] MEDICINE [address] [place], [place] [phone] Abelino Devine, PharmD [address] [place] [address] documented as of this encounter Visit Diagnoses Not on filedocumented in this encounter Care Teams Refrigerator Glazier Relationship Specialty Start Date End Date Monica Francis MD [address] [place] [address] [phone] PCP - General Family Medicine 10/28/17 Abelino Devine, PharmD [address] [place] [phone] Pharmacist Internal Medicine 05/03/24 documented as of this encounter
== END 2024-06-14 11:40 | disposition home or self-care (01) ==
LOC: HO.HHCX 11:39
PROVIDERS: Visit Provider Internal Medicine
DX: M25.511 Pain in right shoulder (principal); G89.29 Other chronic pain
CPT/HCPCS: 73030

== ENCOUNTER → 2024-06-14 11:47 | Outpatient (BNV) | payer MEDICARE, MEDICAID, SELFPAY | PROVIDERS: Visit Provider Radiology Diagnostic Radiology | DX: M19.011 Primary osteoarthritis, right shoulder (principal) | CPT/HCPCS: 73030 ==

== ENCOUNTER 2024-10-05 09:39 | Outpatient (AMB) | payer MEDICARE, MEDICAID, SELFPAY ==
--- NOTE | 2024-10-05 09:57 | A.OFFVIS_ITS ---
Vital Signs 10/05/24 10:07 Height 5 ft 2 in Weight 120 lb BMI 21.9 BP 146/68 H Blood Pressure Location Rt brachial Position Sitting Pulse 74 Pulse Source Pulse Oximeter Pulse Oximetry (%) 97 Oxygen Delivery Method Room Air Intake Visit Reasons: Colonoscopy Screening Intake Note: New pt for recall colo screening. CC: Pt reports last colo was ~ 5 years ago via [facility]. No sx or concerns currently. Data Support Specialist Required: No Accompanied by: Spouse Allergies hydrochlorothiazide Adverse Reaction (Mild, Verified 07/10/23 10:18) dark spot WHEAT FLOUR Allergy (Unknown, Uncoded 07/10/23 10:18) HIVES HPI HPI Colonoscopy Screening: Details: 69-year-old female here for preprocedural meeting to discuss a screening colonoscopy. She is referred by [facility]. PMX Allergic rhinitis Asthma Diabetes Hypertension High cholesterol Goiter Uterine leiomyoma Osteopenia Constipation * SURGICAL HISTORY Tubal ligation * ALLERGIES Hydrochlorothiazide Wheat flour * Digital Assent LABS: Needs refreshed labs TODAY'S VISIT Her prior colonoscopy was: In 2019 and 2012 and with each there was 1 tubular adenoma there performed here by Dr. Hal gunderson and Dr. Miranda. She suffers constipation but it is controlled and no upper GI problems.. Her asthma is well controlled and she denies any cardiac problems. No trouble with anesthesia and sedation, but she is fearful of needles and IV's. There are no infectious disease problems. The family history is: no known CRC or polyps. [facility] Surgical History (Updated 10/05/24 @ 10:32 by ANDREEA Mae) Hx of tubal ligation Social History Alcohol intake: never Patient Tobacco Use Status: Never used Tobacco Review of Systems Const Denies fatigue, Denies fever(s), Denies night sweats, Denies poor appetite and Denies weight loss ENT Reports Normal hearing present, Denies dental pain, Denies dysphagia, Denies hearing loss, Denies mouth pain, Denies odynophagia, Denies throat swelling, Denies tongue swelling and Reports other (Dentition adequate) Card Reports no additional complaints Resp Reports no additional complaints GI Details: Denies abdominal pain, Denies melena, Denies bloating, Denies hematochezia, Denies constipation, Denies GI cramping, Denies dysphagia, Denies excessive flatus, Denies early satiety, Denies heartburn, Denies diarrhea, Denies nausea, Denies odynophagia, Denies vomiting and Denies hematemesis Skin/Breast Denies pruritus, Denies lesions, Denies rash and Denies jaundice Neuro Reports Normal hearing present and Denies Abnormal speech present Endo Denies fatigue Aller/Immun Denies throat swelling and Denies tongue swelling Physical Exam Const General: cooperative, no acute distress, well developed and well groomed Nutritional Appearance: average body habitus and well nourished Orientation/consciousness: oriented to person, oriented to place and oriented to time Limitations: No language barrier HEENT Head: Yes normocephalic and Yes atraumatic Eyes General: appearance normal, both eyes and all related structures Pupils: Equal, round and reactive pupils present Neck Neck: Yes normal visual inspection and Yes no lymphadenopathy Thyroid: Thyroid normal Resp Effort & Inspection: normal respiratory effort and able to speak in complete sentences Auscultation: clear to auscultation bilaterally Cardio Rate: regular rate Rhythm: regular rhythm Heart sounds: Normal, physiologic split S2 sound present Peripheral pulses: radial pulses present and posterior tibial pulses present GI Inspection: No distended and No Abdominal panniculus present Palpation (GI): Soft to palpation, nontender, no guarding, not rigid and No hepatosplenomegaly present Percussion: Yes normal to percussion Auscultation: normal bowel sounds Rectal Exam - Female: deferred Skin General skin exam: no rashes or lesions noted, turgor normal, skin not dry, no jaundice, No spider nevi and no striae Rashes: no rashes Nails: normal Neuro General: oriented to person, oriented to place and oriented to time Cranial nerves: Yes Equal, round and reactive pupils present and Yes Normal hearing present Speech: No Abnormal speech present Extrem General: Yes normal to inspection, No clubbing, No cyanosis and No edema Psych Appearance: grossly normal and well kempt Mental Status: mental status grossly normal Speech and movement: Normal speech and movement present Affect: normal affect Attitude: cooperative Thought process: Normal thought process present and not confabulating Thought content: Normal thought content present Insight: Good insight present (Psych) Judgement: Good judgement present (Psych) Assessment & Plan Assessment & Plan (1) Pre-op examination: Code(s): Z01.818 - Encounter for other preprocedural examination Category: Medical (2) Needle phobia: Code(s): F40.298 - Other specified phobia Category: Medical (3) Asthma: Code(s): J45.909 - Unspecified asthma, uncomplicated Category: Medical (4) Hx of tubal ligation: Code(s): Z98.51 - Tubal ligation status Category: Medical Plan Her prior colonoscopy was: In 2019 and 2012 and with each there was 1 tubular adenoma there performed here by Dr. Hal gunderson and Dr. Miranda. She suffers constipation but it is controlled and no upper GI problems.. Her asthma is well controlled and she denies any cardiac problems. No trouble with anesthesia and sedation, but she is fearful of needles and IV's. There are no infectious disease problems. The family history is: no known CRC or polyps. Orders: Orders Comprehensive Met. Panel Today Z01.818 - Encounter for other preprocedural examination Complete Blood Count Auto Diff Today Z01.818 - Encounter for other preprocedural examination Colonoscopy - GI Use Only Today Z01.818 - Encounter for other preprocedural examination Medications: New peg 3350-electrolytes 236-22.74-6.74 -5.86 gram (Golytely) until fecal effluent is clear; do not exceed a total volume of 2,000 mL 240 mL PO Q10M 4,000 mL 0RF 1 day Z12.11 - Encounter for screening for malignant neoplasm of colon bisacodyl (Dulcolax (bisacodyl)) 10 mg (2 x 5 mg) PO BEDTIME 4 tabs 0RF 2 days Coding Level of Care Code New Pt Level 3 (47148) Diagnoses Pre-op examination Z. Needle phobia F40.298 Asthma J45.909 Hx of tubal ligation Z98.51
[2024-10-05 10:07] VITALS: BP 146/68; PULSE 74; O2SAT 97; BMI 21.9
--- OUTSIDE RECORDS SUMMARY | 2024-10-05 10:27 | XMS_ITS | Encounter Summary ---
Author Organization [employer] Address [address] [facility] [address] [place] [address] Care Team Providers Care Gas Brazer Name Role Phone Monica Francis MD Primary Care Provide r Abelino Devine PharmD Unavailable [phone] Reason for Visit * Reason Comments Chart update mammo Encounter Details Date Type Department Care Team (Late Contact Info) Description 08/07/[address] [facility] MEDICINE [address] [place] [phone] Monica Francis MD [address] [place] [address] [phone] Social History Tobacco Use Types Packs/Day Years [...] Department Care Team (Late Contact Info) Description 11/18/2024 9:00 AM EDT Medication Management [facility] MEDICINE [address] [place] [address] Abelino Devine, PharmD [address] [place], [place] [phone] documented as of this encounter Procedures Procedure [...] on filedocumented in this encounter Care Teams Gas Brazer Relationship Specialty Start Date End Date Monica Francis MD [address] [place] [address] PCP - General Family Medicine 10/28/17 Abelino Devine, RobbieD [address] [place] [address] Pharmacist Internal Medicine 05/03/24 documented as of this encounter
--- OUTSIDE RECORDS SUMMARY | 2024-10-05 10:27 | XMS_ITS | Clinical Summary ---
Author Organization [facility] Address [address] [facility] [address] [place] [address] Phone Care Team Providers Care Rubber Cutting Machine Tender Name Role Phone Monica Francis MD Primary Care Provider Allergies Active Allergy Reactions Criticality Noted Date Comments Hydrochlorothiazide Hives 05/09/2010 Wheat Bran 06/30/2016 Other reaction(s): hives Medications lisinopril (PRINIVIL,ZESTRI L) 5 MG tablet Take 5 mg by mouth daily. Active aspirin 81 MG EC tablet Take 81 mg by mouth daily. Active glipiZIDE (GLUCOTROL) 10 MG tablet Take 10 mg by mouth 2 (two) times a day before meals. Active simvastatin (ZOCOR) 20 MG tablet Take 20 mg by mouth nightly at bedtime. Active venlafaxine (EFFEXOR) 37.5 MG tablet Take 37.5 mg by mouth daily. Active dulaglutide (TRULICITY) 4.5 mg/0.5 mL subcutaneous injection Inject 4.5 mg under the skin every 7 days. Active diphenhydrAMINE (BENADRYL) 25 mg capsule Take 25 mg by mouth every 6 (six) hours as needed for itching or allergies (Seasonal allergies). Active albuterol 2.5 mg /3 mL (0.083 %) nebulizer solution Take 3 mL by nebulization every 8 (eight) hours as needed. Active albuterol 90 mcg/actuation inhaler Inhale 2 puffs into the lungs every 4 (four) hours as needed for wheezing. Active benzonatate (TESSALON) 100 MG capsule Take 100 mg by mouth 3 (three) times a day as needed for cough. Active fluticasone propionate (FLONASE) 50 mcg/actuation nasal spray 2 sprays by Nasal route daily as needed for rhinitis. Active hydroquinone 4 % cream Apply topically 2 (two) times a day. Active ONETOUCH DELICA PLUS LANCET 33 gauge Misc Inject 1 each into the skin 2 (two) times a day. 4 Active cromolyn (OPTICROM) 4 % ophthalmic solution Place 1 drop into each eye 4 (four) times a day. 4 Active ONETOUCH VERIO Strp strips 1 each 2 (two) times a day. 4 Active OZEMPIC 2 mg/dose (8 mg/3 mL) subcutaneous injection pen Inject 2 mg under the skin every 7 days. 5 Active Active Problems Problem Noted Date Diagnosed Date Nontoxic multinodular goiter 05/07/2023 Assessment & Plan (03/15/2024 9:49 AM EST): The patient has 3 subcentimeter nodules that do not require biopsy because they are too small. One of the nodules increase significantly but is still too small to biopsy. Since there is 1 nodule grew significantly I will repeat the ultrasound in 1 years time by 12/14/2024. This should be done at . Assessment & Plan (12/07/2023 10:50 AM EDT): The patient was supposed to repeat the ultrasound of the thyroid by November 2023 but instead what was done was an ultrasound of the neck which does not measure the thyroid just still surrounding lymph nodes. The radiologist states that the lymph nodes are atypical but they appear benign based on the description given and they are ovoid lymph nodes not spherical which would imply malignant characteristics. I have requested that the patient obtain ultrasound of the thyroid gland. She will do this at . Assessment & Plan (05/07/2023 11:23 AM EDT): The patient has subcentimeter nodules. We cannot biopsy these at the present time because they are too small. I recommend repeating an ultrasound 11/20/2023. She should get this done at . Diaphoresis 05/07/2023 Assessment & Plan (05/07/2023 11:24 AM EDT): I could do extensive biochemical workup but [...] December 2023 to review the thyroid ultrasound. Family History Medical History Relation Comments Diabetes mellitus Mother Hypertension Mother Relation Status Comments Mother Social History Tobacco Use Types Packs/Day Years Used Date Smoking Tobacco: Never Smokeless Tobacco: Never Tobacco Cessation:Counseling Given: Not Answered Alcohol Use Standard Drinks/Week Comments Not Currently 0 (1 standard drink = 0.6 oz pur e alcohol) Education Answer Date Recorded Are you interested in more education? Not on anu e 03/05/2023 Are you concerned about learning? Not on file 03/05/2023 No 03/05/2023 No 03/05/2023 Digital Access Answer Date Recorded No 03/05/2023 No 03/05/2023 Reliable internet access at home? Not on file 03/05/2023 Device with a working camera? Not on file Comments Unknown Sex and Gender Information Value Date Recorded Sex Assigned at Not on file Legal Sex Female 2:02 PM EST Gender Identity Not on file Sexual Orientation Not on file Last Filed Vital Signs Vital Sign Reading Time Taken Comments Blood Pressure 116/64 03/15/2024 9:11 AM EST Pulse 79 03/15/2024 9:11 AM EST Temperature 36.3 C (97.4 F) 05/07/2023 10:58 AM EDT Respiratory Rate - - Oxygen Saturation 98% 03/15/2024 9:11 AM EST Inhaled Oxygen Concentration - - Weight 56 kg (123 lb 6.4 oz) 03/15/2024 9:11 AM EST Height 157.5 cm (5' 2 ) 03/15/2024 9:11 AM EST Body Mass Index 22.57 03/15/2024 9:11 AM EST Plan of Treatment Upcoming Encounters Date Type Department Care Team (Late st Contact Info) Description 03/15/2025 9:10 AM EST Office Visit [facility] [address] [place] [address] [place] [address] Yoav Haas DO [address] [place] [address] [email or web address] Health Maintenance Due Date Last Done Comments CREATININE LEVEL 1957 LIPID PANEL 1957 POTASSIUM LEVEL 1957 DEPRESSION SCREENING 1969 HEPATITIS C SCREENING 08/26/1975 COLOGUARD 2002 COLONOSCOPY 2002 COLORECTAL CANCER SCREENING 2002 FIT TEST 2002 FOBT 2002 SIGMOIDOSCOPY 2002 VIRTUAL COLONOSCOPY 2002 ZOSTER VACCINES (1 of 2) 08/26/2007 PNEUMOCOCCAL VACCINES (50+ years) (2 of 2 - PCV) 11/17/2007 11/16/2006 Adult Td,Tdap Booster 10/22/2021 10/23/2011 COVID-19 VACCINE ( - 2023-2 5 season) 2023 MAMMOGRAM 01/06/2025 01/06/2023, 07/19/2018 RSV VACCINE (1 - 1-dose 75+ series) 2032 OSTEOPOROSIS SCREENING INITI AL (ONE-TIME) Completed 08/18/2023 SMOKING STATUS SCREENING (On ce After 26 Yrs) Completed 03/15/2024 HEPATITIS A VACCINES Aged Out No long er eligible based on patient's age to complete this topic HIB VACCINES Aged Out No longer eligi ble based on patient's age to complete this topic MENINGOCOCCAL VACCINES (ACWY) Aged Out No longer eligible based on patient's age to complete this topic MENINGOCOCCAL VACCINES (B) Aged Out N o longer eligible based on patient's age to complete this topic Medical Devices Not on file Insurance [email or web address][employer]to [facility] MED[facility] [place] [facility] [place] RE[place] [facility] MEDICARE REPLACEMENT [address] [address] [address] [facility] MEDIC[facility] REPLACEMENT Member Subscriber Plan / Payer (Ef fective 2024-) Name:Cony Saez Relation to Subscriber:Self Name:Cony Saez Payer ID:[id number] (NAIC) Type:Medicare Address: [place] [id number] [place] [facility] MEDIC[facility] [place] [facility] MEDIC[facility] REPLACEMENT Care Teams Rubber Cutting Machine Tender Relationship Specialty Start Date End Date Monica Francis MD [address] [place] [phone] PCP - General Internal Medicine 04/08/23 Additional Source Comments The information contained in this document represents components of the legal health record. It is not the complete legal health record.[facility]
== END 2024-10-05 10:33 | disposition home or self-care (01) ==
LOC: HO.HGI 09:39
PROVIDERS: PCP Internal Medicine; Visit Provider Nurse Practitioner
DX: Z01.818 Encounter for other preprocedural examination (principal); Z12.11 Encounter for screening for malignant neoplasm of colon; Z86.0101 Personal history of adenomatous and serrated colon polyps; F40.298 Other specified phobia; J45.909 Unspecified asthma, uncomplicated; Z98.51 Tubal ligation status
CPT/HCPCS: 99203

== ENCOUNTER 2024-10-05 09:39 | Outpatient (REF) | payer MEDICARE, MEDICAID, SELFPAY ==
[2024-10-05 10:54] LABS: MANUAL DIFF FLAG NO
[2024-10-05 11:42] LABS: Hematocrit 39.9 % (37.0-47.0); Hemoglobin 13.6 g/dl (12.0-16.0); Imm Gran Abs Auto 0.02 X10*3/uL (0.00-0.03); Imm Gran Pct Auto 0.4 % (0.0-0.4); Lymphocytes Absolute Auto 1.5 X10*3/uL (1.2-4.9); Mean Corpuscular HGB Conc 34.1 g/dl (31.0-35.0); Mean Corpuscular Hemoglobin 30.7 pg (27.0-33.0); Mean Corpuscular Volume 90.1 fL (80.0-98.0); NRBC Abs Auto 0.000 X10*3/uL (0.0-0.012); NRBC Pct Auto 0.0 /100WBC (0.0-0.2); Platelet Count 210 X10*3/uL (160-400); Red Blood Count 4.43 X10*6/uL (4.20-5.50); White Blood Count 5.0 X10*3/uL (4.8-10.8)
[2024-10-05 12:29] LABS: Alanine Aminotransferase 28 U/L (0-31); Albumin Level 4.4 g/dL (3.5-5.0); Alkaline Phosphatase 71 U/L (39-117); Anion Gap 12 (12-20); Aspartate Amino Transferase 23 U/L (5-31); Blood Urea Nitrogen 17 mg/dL (9-16); Calcium 9.2 mg/dL (8.4-10.2); Carbon Dioxide 25 mmol/L (22-29); Chloride 106 mmol/L (96-108); Estimated Glomerular Filt Rate > 60; Potassium 4.1 mmol/L (3.3-5.1); Sodium 139 mmol/L (135-145); Total Protein 7.4 g/dL (6.5-8.0)
== END 2024-10-05 09:40 | disposition home or self-care (01) ==
LOC: HO.LAB 09:39
PROVIDERS: PCP Internal Medicine; Visit Provider Nurse Practitioner
DX: Z01.818 Encounter for other preprocedural examination (principal); Z12.11 Encounter for screening for malignant neoplasm of colon; F40.298 Other specified phobia; J45.909 Unspecified asthma, uncomplicated; Z98.51 Tubal ligation status
CPT/HCPCS: 36415; 80053; 85025; 99202

== ENCOUNTER 2024-11-14 08:45 | Outpatient (REF) | payer MEDICARE, MEDICAID, SELFPAY ==
--- OUTSIDE RECORDS SUMMARY | 2024-11-14 09:10 | XMS_ITS | Encounter Summary ---
Author Organization [employer] Address [address] [facility] 7t [place] [address] Care Team Providers Care Peer Support Specialist Name Role Phone Monica Francis MD Primary Care Provide r Abelino Devine PharmD Unavailable [phone] Reason for Visit * Reason Comments Chart update mammo Encounter Details Date Type Department Care Team (Late Contact Info) Description 08/07/2022 Abstract [facility] [address] [place] [phone] Monica Francis MD [address] [place] [address] Social History Tobacco Use Types Packs/Day Years [...] Department Care Team (Late Contact Info) Description 11/25/2024 9:30 AM EDT Medication Management [facility] [address] [place] [address] Abelino Devine, PharmD [address] [place], [place] [phone] 12/12/2024 11:30 AM EDT Office Visit [facility] [address] [place], [place] [phone] Monica Francis MD [address] [place], [place] [phone] documented as of this encounter Procedures Procedure [...] on filedocumented in this encounter Care Teams Peer Support Specialist Relationship Specialty Start Date End Date Monica Francis MD [address] [place] [address] [phone] PCP - General Family Medicine 10/28/17 Abelino Devnie, PharmD [address] [place] [address] [phone] Pharmacist Internal Medicine 05/03/24 documented as of this encounter
--- OUTSIDE RECORDS SUMMARY | 2024-11-14 09:10 | XMS_ITS | Encounter Summary ---
Author Organization [employer] Address [address] [facility] 7t [place] [address] Care Team Providers Care Solar Sales Representative And Assessor Name Role Phone Monica Francis MD Primary Care Provide r Abelino Devine PharmD Unavailable [phone] Reason for Visit * Reason Comments Med Refill Encounter Details Date Type Department Care Team (Late st Contact Info) Description 09/12/2024 Refill [facility]INE [address] [place], [place] [phone] Monica Francis MD [address] [place], [place] [phone] Type 2 diabetes mellitus with hyperglycemia, without long-term current use of insulin ([facility]) Social History Tobacco Use Types Packs/Day Years [...] Care Team (Late st Contact Info) Description 11/25/2024 9:30 AM EDT Medication Management [facility]INE [address] [place] [address] Abelino Devine, PharmD [address] [place] [address] 12/12/2024 11:30 AM EDT Office Visit [facility] [address] [place] [address] Monica Francis MD [address] [place] [phone] documented as of this encounter Visit Diagnoses Diagnosis Type 2 diabetes mellitus with hyperglycemia, without long-term current use of insulin (HCC) documented in this encounter Additional Health Concerns Assessment Noted Time PHQ-9 Depression Total Score: 0 07/28/19 24 10:07 AM EDT documented as of this encounter Care Teams Solar Sales Representative And Assessor Relationship Specialty Start Date End Date Monica Francis MD [address] [place], [place] [phone] PCP - General Family Medicine 10/28/17 Abelino Devine, Wilber [address] [place] [address] Pharmacist Internal Medicine 05/03/24 documented as of this encounter
--- OUTSIDE RECORDS SUMMARY | 2024-11-14 09:10 | XMS_ITS | Encounter Summary ---
Author Organization [employer] Address [address] [facility] 7t [place] [address] Care Team Providers Care Wire Strander Name Role Phone Monica Francis MD Primary Care Provide r Abelino Devine PharmD Unavailable [phone] Reason for Visit * Reason Comments Med Refill Encounter Details Date Type Department Care Team (Late st Contact Info) Description 10/03/2024 Refill [facility] [address] [place] [address] Monica Francis MD [address] [place], [place] [phone] Social History Tobacco Use Types Packs/Day Years [...] the past 12 months, has t he [employer] gas, oil or water company threatened to [...] Description 11/25/2024 9:30 AM EDT Medication Management [facility] MEDICINE [address] [place] [phone] Abelino Devine, PharmD [address] [place] [address] 12/12/2024 11:30 AM EDT Office Visit [facility] MED[facility]INE [address] [place] [address] Monica Francis MD [address] [place] [address] documented as of this encounter Visit Diagnoses Not on filedocumented in this encounter Additional Health Concerns Assessment Noted Time PHQ-9 Depression Total Score: 0 07/28/19 24 10:07 AM EDT documented as of this encounter Care Teams Wire Strander Relationship Specialty Start Date End Date Monica Francis MD [address] [place] [phone] PCP - General Family Medicine 10/28/17 Abelino Devine, Wilber [address] [place] [address] Pharmacist Internal Medicine 05/03/24 documented as of this encounter
--- OUTSIDE RECORDS SUMMARY | 2024-11-14 09:10 | XMS_ITS | Clinical Summary ---
Author Organization [facility] Address [address] [facility] [address] [place] [phone] Phone Care Team Providers Care Director Digital Analytics Name Role Phone Monica Francis MD Primary [...] by 12/14/2024. This should be done at [facility]. Assessment & Plan (12/07/2023 10:50 AM EDT): [...] thyroid gland. She will do this at [facility]. Assessment & Plan (05/07/2023 11:23 AM EDT): The patient has subcentimeter nodules. We cannot biopsy these at the present time because they are too small. I recommend repeating an ultrasound 11/20/2023. She should get this done at [facility]. Diaphoresis 05/07/2023 Assessment & Plan (05/07/2023 11:24 [...] 9:10 AM EST Office Visit [facility] [address] [place] [address] [place] [address] Yoav Haas DO [address] [place] [address] [email or web address] Health Maintenance Due Date Last Done Comments CREATININE LEVEL 1957 LIPID PANEL 1957 POTASSIUM LEVEL 1957 DEPRESSION SCREENING 1969 HEPATITIS C SCREENING 08/26/1975 COLOGUARD 2002 COLONOSCOPY 2002 COLORECTAL CANCER SCREENING 2002 FIT TEST 2002 FOBT 2002 SIGMOIDOSCOPY 2002 VIRTUAL COLONOSCOPY 2002 ZOSTER VACCINES (1 of 2) 08/26/2007 PNEUMOCOCCAL VACCINES (50+ years) (2 of 2 - PCV) 11/17/2007 11/16/2006 Adult Td,Tdap Booster 10/22/2021 10/23/2011 INFLUENZA VACCINE (#1) 2024 COVID-19 VACCINE (1 - 2023-2 5 season) 2024 MAMMOGRAM 01/06/2025 01/06/2023, 07/19/2018 RSV VACCINE (1 [...] topic Medical Devices Not on file [facility] MEDIC[facility] REPLACEMENT Member Subscriber Plan / Payer ( fective 2024-Present) Name:Cony Saez Relation to Subscriber:Self Name:Cony Saez Payer ID:[id number] (NAIC) Type:Medicare Address: [address] [place] [facility] MEDICARE RE[place]AC[place] [facility] MEDICARE REPLAC[facility] [place] [facility] MEDIC[facility] RE[place] [facility] MEDICARE REPLACEMENT Care Teams Director Digital Analytics Relationship Specialty Start Date End Date Monica Francis MD [address] [place] [phone] PCP - General Internal Medicine 04/08/23 Additional Source Comments The information contained in this document represents components of the legal health record. It is not the complete legal health record.[facility]
--- OUTSIDE RECORDS SUMMARY | 2024-11-14 09:11 | XMS_ITS | Encounter Summary ---
Author Organization [employer] Address [address] [facility] 7t [place] [address] Care Team Providers Care Chief Operator Synthesis Name Role Phone Monica Francis MD Primary Care Provide r Abelino Devine PharmD Unavailable [phone] Encounter Details Date Type Department Care Team (Latest Contact Info) Description 11/11/2024 Travel Social History Tobacco Use Types Packs/Day [...] Description 11/25/2024 9:30 AM EDT Medication Management [address] [address] Abelino Devine, PharmD [address] [place] [address] 12/12/2024 11:30 AM EDT Office Visit [facility] MEDICINE [address] [place] [address] Monica Francis MD [address] [place] [address] documented as of this encounter Visit Diagnoses Not on filedocumented in this encounter Additional Health Concerns Assessment Noted Time PHQ-9 Depression Total Score: 0 07/28/19 24 10:07 AM EDT documented as of this encounter Care Teams Chief Operator Synthesis Relationship Specialty Start Date End Date Monica Francis MD [address] [place] [phone] PCP - General Family Medicine 10/28/17 Abelino Devine, PharmD [address] [place] [phone] Pharmacist Internal Medicine 05/03/24 documented as of this encounter
--- OUTSIDE RECORDS SUMMARY | 2024-11-14 09:11 | XMS_ITS | Encounter Summary ---
Author Organization [employer] Address [address] [facility] 7t [place] [address] Care Team Providers Care Lithographing Machine Operator Name Role Phone Monica Francis MD Primary Care Provide r Abelino Devine PharmD Unavailable [phone] Encounter Details Date Type Department Care Team ([facility] st Contact Info) Description 03/05/2023 Telephone [facility] MEDICINE [address] [place], [place] [phone] Monica Francis MD [address] [place], [place] [phone] Social History Tobacco Use Types Packs/Day Years [...] Description 11/25/2024 9:30 AM EDT Medication Management [facility] [address] [place] [address] Abelino Devine, Wilber [address] [place] [address] 12/12/2024 11:30 AM EDT Office Visit [facility] [address] [place] [address] Monica Francis MD [address] [place] [address] documented as of this encounter Visit Diagnoses Not on filedocumented in this encounter Care Teams Lithographing Machine Operator Relationship Specialty Start Date End Date Monica Francis MD [address] [place] [phone] PCP - General Family Medicine 10/28/17 Abelino Devine, PharmD [address] [place] [address] [phone] Pharmacist Internal Medicine 05/03/24 documented as of this encounter
--- OUTSIDE RECORDS SUMMARY | 2024-11-14 09:11 | XMS_ITS | Encounter Summary ---
Author Organization [employer] Address [address] [facility] 7t [place] [address] Care Team Providers Care Gynecologist Name Role Phone Monica Francis MD Primary Care Provide r Abelino Devine PharmD Unavailable [phone] Reason for Visit * Reason Comments Med Refill Encounter Details Date Type Department Care Team (Late st Contact Info) Description 01/28/2023 Refill [facility] MED[facility]INE [address] [place] [address] Monica Francis MD [address] [place] [address] Type 2 diabetes mellitus without complication, without long-term current use of insulin ([facility]) Social History Tobacco Use Types Packs/Day Years [...] Description 11/25/2024 9:30 AM EDT Medication Management [facility] [address] [place] [phone] Abelino Devine, Wilber [address] [place] [phone] 12/12/2024 11:30 AM EDT Office Visit [facility] MED[facility]INE [address] [place] [phone] Monica Francis MD [address] [place] [address] [phone] documented as of this encounter Visit Diagnoses Diagnosis Type 2 diabetes mellitus without complication, without long-term current use of insulin (HCC) documented in this encounter Care Teams Gynecologist Relationship Specialty Start Date End Date Monica Francis MD [address] [place] [address] [phone] PCP - General Family Medicine 10/28/17 Abelino Devine, PharmD [address] [place] [address] [phone] Pharmacist Internal Medicine 05/03/24 documented as of this encounter
--- OUTSIDE RECORDS SUMMARY | 2024-11-14 09:11 | XMS_ITS | Encounter Summary ---
Author Organization [employer] Address [address] [facility] 7t [place] [address] Care Team Providers Care Respiratory Care Assistant Name Role Phone Monica Francis MD Primary Care Provide r Abelino Devine PharmD Unavailable [phone] Encounter Details Date Type Department Care Team (Late st Contact Info) Description 03/31/2022 Orders Only [facility]INE [address] [place] [address] Anastasiya Torrez DO [address] [place] [address] Social History Tobacco Use Types Packs/Day Years [...] Description 11/25/2024 9:30 AM EDT Medication Management [facility] [address] [place] [phone] Abelino Devine, PharmD [address] [place] [address] 12/12/2024 11:30 AM EDT Office Visit [facility] [address] [place] [address] Monica Francis MD [address] [place] [phone] documented as of this encounter Visit Diagnoses Not on filedocumented in this encounter Care Teams Respiratory Care Assistant Relationship Specialty Start Date End Date Monica Francis MD [address] [place] [address] [phone] PCP - General Family Medicine 10/28/17 Abelino Devine, RobbieD [address] [place] [phone] Pharmacist Internal Medicine 05/03/24 documented as of this encounter
--- OUTSIDE RECORDS SUMMARY | 2024-11-14 09:11 | XMS_ITS | Clinical Summary ---
Author Organization [employer] Address [address] [facility] 7[address] [place] [address] Care Team Providers Care Digital Operations Analyst Name Role Phone Monica Francis MD Primary Care Provide r Abelino Devine PharmD Unavailable [phone] Allergies Active Allergy Reactions Criticality Noted Date Comments Pickled Meat Rash Low 05/11/2024 Hydrochlorothiazide Hives 05/09/2010 Wheat 06/30/2016 Other reaction(s): hives Medications hydroquinone 4 % creamIndications: Melasma Apply topically 2 times daily. 28.35 g 3 025 2025 Active insulin syringe U-100 0.5 mL misc Use as instructed 100 each 12 025 2025 Active cholecalciferol (Vitamin D-3) 25 MCG tablet TAKE 1 TABLET BY MOUTH EVERY DAY 90 tablet 1 025 Active cromolyn (Opticrom) 4 % ophthalmic solution Administer 1 drop into affected eye(s) 4 times daily. 024 Active aspirin 81 MG EC tabletIndications :Type 2 diabetes mellitus with hyperglycemia, without long-term current use of insulin (HCC) Take 1 tablet (81 mg) by mouth Once per day. 30 tablet 11 025 Active ascorbic acid (Vitamin C) 1000 MG tablet Take 1,000 mg by mouth Once per day. Purchases OTC. Active Collagen-Vitamin C-Biotin (COLLAGEN PO) Take 1 capsule by mouth Once per day. Purchases OTC Active calcium carbonate (Calcium 600) 600 MG tablet Take 600 mg by mouth Once per day. Purchases OTC. Active Ketotifen Fumarate 0.035 % solutionIndicatio ns:Allergic conjunctivitis of both eyes Administer 1 drop into affected eye(s) 2 times daily. 10 mL 025 Active diphenhydrAMINE (BENADryl) 25 MG capsuleIndication s:Allergic rhinitis, unspecified seasonality, unspecified trigger TAKE 1 CAPSULE BY MOUTH EVERY 6 HOURS NEEDED FOR ITCHING. MAY CAUSE DROWSINESS 30 capsule 2 025 Active simvastatin (Zocor) 20 MG tabletIndications :Combined hyperlipidemia TAKE 1 TABLET BY MOUTH EVERY DAY IN THE EVENING 90 tablet 1 025 Active glipiZIDE XL (Glucotrol XL) 10 MG 24 hr tabletIndications :Type 2 diabetes mellitus with hyperglycemia, without long-term current use of insulin ([facility]) TAKE 1 TABLET BY MOUTH TWICE DAILY 180 tablet 1 025 Active Blood Glucose Monitoring Suppl (Accu-Chek Guide) w/Device kitIndications:Ty pe 2 diabetes mellitus with hyperglycemia, without long-term current use of insulin ([facility]) Use to check blood sugar 2 times daily as directed 1 kit 025 Active glucose blood (Accu-Chek Guide Test) test stripIndications: Type 2 diabetes mellitus with hyperglycemia, without long-term current use of insulin ([facility]) Use to check blood sugar twice daily 100 each 11 025 2025 Active lisinopril 5 MG tabletIndications :Primary hypertension TAKE 1 TABLET BY MOUTH EVERY DAY 90 tablet 1 025 Active Lancet Devices (Lancing Device) miscIndications:T ype 2 diabetes mellitus with hyperglycemia, without long-term current use of insulin ([facility]) Use to test blood sugar 1 each 025 Active Lancets 33G miscIndications:T ype 2 diabetes mellitus with hyperglycemia, without long-term current use of insulin ([facility]) Use to check blood sugar twice daily 100 each 5 025 Active insulin glargine (Lantus) 100 UNIT/ML injectionIndicati ons:Type 2 diabetes mellitus with hyperglycemia, without long-term current use of insulin ([facility]) Inject 22 Units under the skin at bedtime. 025 Active Accu-Chek Softclix Lancets lancetsIndication s:Type 2 diabetes mellitus with hyperglycemia, without long-term current use of insulin ([facility]) Use to check blood sugar twice daily 100 each 2024 Discontinued(A lternate therapy) insulin glargine (Lantus) 100 UNIT/ML injectionIndicati ons:Type 2 diabetes mellitus with hyperglycemia, without long-term current use of insulin ([facility]) Inject 15 Units under the skin at bedtime. 10 mL 2024 Discontinued(R eorder (will not trigger notification to Pharmacy)) empagliflozin (Jardiance) 10 MGIndications:Typ e 2 diabetes mellitus with hyperglycemia, without long-term current use of insulin ([facility]) Take 1 tablet (10 mg) by mouth Once per day. 30 tablet 2024 Discontinued(S anjel effects) insulin glargine (Lantus) 100 UNIT/ML injectionIndicati ons:Type 2 diabetes mellitus with hyperglycemia, without long-term current use of insulin ([facility]) Inject 18 Units under the skin at bedtime. 10 mL 2024 Discontinued(R eorder (will not trigger notification to Pharmacy)) insulin glargine (Lantus) 100 UNIT/ML injectionIndicati ons:Type 2 diabetes mellitus with hyperglycemia, without long-term current use of insulin ([facility]) Inject 20 Units under the skin at bedtime. 10 mL 2024 Discontinued(R eorder (will not trigger notification to Pharmacy)) Active Problems Problem Noted Date Diagnosed Date [...] 11/20/2023. She should get this done at [facility]. Weight loss 04/28/2023 Assessment & Plan (04/28/2023 [...] <110 PP not at goal <180 Called [facility] pharmacy, they are able to get Trulicty for patient at 3mg weekly dosing, order placed Also replaced Freestyle Lite so that patient can check her blood sugars as she has been, twice a day Wants to followup with her PCP for ongoing DM2 mgmt, appointment made for June Date Type Department Care Team Description 11/11/2024 Travel 11/04/2024 Travel 10/26/2024 10:00 AM EDT Office Visit [facility] [address] [place] [address] Lesley Mathews MD Type 2 diabetes mellitus with hyperglycemia, without long-term current use of insulin ([facility]) (Primary Dx); Elevated glucose 10/26/2024 Travel 10/05/2024 Orders Only GENERIC EXTERNAL DATA DEPARTMENT Provider, Generic External Data 10/03/2024 Refill [facility] [address] [place] [address] Monica Francis MD 10/03/2024 Refill [facility] [address] [place] [address] Monica Francis MD Primary hypertension 09/12/2024 Refill [facility] [address] [place] [address] Monica Francis MD Type 2 diabetes mellitus with hyperglycemia, without long-term current use of insulin ([facility]) 09/12/2024 Travel from Last 3 Months Immunizations Immunization Administration Dates Next Due Hep B, adult 10/23/2011 Influenza High-dose Quadriva lent Preservative Free 11/16/2022 Influenza Injectable Quadriv alant Preservative Free IIV4 MDCK 11/02/2021,10/30/2017 Influenza injectable quadriv alent IIV4 with preservative 11/06/2015,11/20/2014 Influenza injectable quadriv alent preservative free 10/22/2020,10/10/2018,11/05/2016 Influenza, High Dose Seasona l, Preservative Free 11/11/2024,11/06/2023 Influenza, IIV3, injectable 11/14/2013, 0,11/24/2008 Influenza, Split (incl. alejandrina fied surface antigen) 12/31/2012,10/23/2011 Pfizer Covid-19 Vaccine 12+ 11/06/2023 Pfizer Covid-19 Vaccine 12+ shai-sucrose (Guerrero Cap) 10/15/2021 Pneumococcal Conjugate PCV 20 12/24/2022 Pneumococcal Polysaccharide PPSV23 11/16/2006 RSV Adjuvant 11/16/2022 TD (adult), 2 Lf tetanus tox oid, preservative free, adsorbed 11/27/2009 Tdap 06/17/2024,10/23/2011 Zoster, Recombinant 09/12/2024,06/17/2024 Zoster, live 10/01/2012 Social History Tobacco Use [...] Sign Reading Time Taken Comments Blood Pressure 134/84 10/26/2024 9:55 AM EDT Pulse 80 10/26/2024 9:55 AM EDT Temperature 36.4 C (97.5 F) 10/26/2024 9:55 AM EDT Respiratory Rate 20 10/26/2024 9:55 AM EDT Oxygen Saturation 97% 10/26/2024 9:55 AM EDT Inhaled Oxygen Concentration - - Weight 54.6 kg (120 lb 6.4 oz) 10/26/2024 9:55 A M EDT Height 154.9 cm (5' 1 ) 06/14/2024 10:53 AM EDT Body Mass Index 22.75 06/14/2024 10:53 AM EDT Plan of Treatment Upcoming Encounters Date Type Department Care Team (Late st Contact Info) Description 11/25/2024 9:30 AM EDT Medication Management [facility] [address] [place] [phone] Abelino Devine, PharmD [address] [place] [address] 12/12/2024 11:30 AM EDT Office Visit [facility] [address] [place] [address] Monica Francis MD [address] [place], [place] [phone] Health Maintenance Due Date Last Done Comments CT Colonography 1955 Colonoscopy 1955 Colorectal Cancer Screening 1955 Dental X-Ray: Full Mouth 1955 FIT DNA/Cologuard 1957 FIT 1957 FOBT 1955 Sigmoidoscopy 1955 Eye Exam 08/26/1967 Alcohol/Substance Use Screening 1969 Hepatitis B Vaccines (2 of 3 - 19+ 3-dose series) 11/20/2011 10/23/2011 Diabetes: Foot Exam 06/26/2023 06/25/2022, Dental Oral Exam 11/07/2023 05/06/2023, 05/01/2022 Dental Prophylaxis 11/07/2023 05/06/2023, 05/01/2022 Depression Screening 07/27/2024 07/28/2023, 07/28/19 Diabetes: Urine Protein Screening 07/27/2024 07/28/2023, 07/02/2022, 04/20/2021, Additional history exists Dental X-Ray: Bitewings 08/14/2024 08/14/19 24, 05/06/2023, 05/01/2022 COVID-19 Vaccine ( season) 2024 11/06/2023, 11/17/2022, 10/15/2021, Additional history exists Lipid Panel 11/09/2024 11/10/2023, 06/16, 04/20/2021, Additional history exists Diabetes: Hemoglobin A1C 12/13/2024 025, 05/11/2024, 01/22/2024, Additional history exists Mammogram 01/11/2025 01/12/2024, 12/18, 01/06/2023, Additional history exists SDOH Screening 05/02/2025 05/02/2024 Tobacco Screening 10/26/2025 10/26/2024 HPV/Cotest 11/08/2026 11/08/2021, 10/28/2016 Pap Smear 11/08/2026 11/08/2021 DTaP/Tdap/Td Vaccines (3 - Td or Tdap) 06/17/2034 06/17/2024, 10/23/2011, 11/27/2009 RSV Patients and Patients Aged 60 years or older Completed 11/16/2022 Pneumococcal Vaccine: 50+ Years Completed 12/24/2022, 11/16/2006 Hepatitis C Screening Completed 04/29/2023 Zoster Vaccines Completed 09/12/2024, 050 03/2024, 10/01/2012 Influenza Vaccine Completed 11/11/2024, , 11/16/2022, Additional history exists HIB Vaccines Aged Out [...] patient's age to complete this topic Meningococcal B Vaccine Aged Out No l onger eligible based on patient's age to complete [...] Procedure Name Priority Date/Time Associated Diagnosis Comments POCT GLUCOSE Routine 10/26/2024 10:00 AM EDT Elevated glucose COMPREHENSIVE METABOLIC PANEL Routine 10/05/2024 10:52 AM EDT CBC WITH AUTO DIFFERENTIAL Routine 10/05/2024 10:52 AM EDT POCT GLYCATED HEMOGLOBIN, TOTAL Routine 09/12/2024 9:26 AM EDT Type 2 diabetes mellitus with hyperglycemia, without long-term current use of insulin ([facility]) BI MAMMOGRAM DIAGNOSTIC TOMOSYNTHESIS BILATERAL Routine 01/12/2024 10:55 AM EST LIPID PANEL WITH REFLEX TO DIRECT LDL Routine 11/10/2023 9:37 AM EDT Type 2 diabetes mellitus with hyperglycemia, without long-term current use of insulin ([facility]) Primary hypertension BITEWING - SINGLE RADIOGRAPHIC IMAGE [...] Recently Relevant to Health Maintenance Results * POCT glucose manually resulted (10/26/2024 10:00 AM EDT) Glucose Blood, POC 200 60 - 200 mg/dL Blood Capillary blood specimen / Unknown 10/26/2024 10:00 AM EDT Lesley Mathews MD POINT OF CARE TEST ENTER/EDIT ORDERABLES Final Result * CBC auto differential (10/05/2024 10:52 AM EDT) White Blood Count 5.0 4.8 - 10.8 X10*3/uL [facility] Red Blood Count 4.43 4.20 - 5.50 X10*6/uL [facility] Hemoglobin 13.6 12.0 - 16.0 g/dl [facility] Hematocrit 39.9 37.0 - 47.0 % [facility] Mean Corpuscular Volume 90.1 80.0 - 98.0 fL [facility] Mean Corpuscular Hemoglobin 30.7 27.0 - 33.0 pg [facility] Mean Corpuscular HGB Conc 34.1 31.0 - 35.0 g/dl [facility] Red Cell Distribution Width 12.2 11.0 - 16.0 % [facility] Platelet Count 210 160 - 400 X10*3/uL [facility] Mean Platelet Volume 11.4 9.4 - 12.3 fL [facility] Neutrophils Percent Auto 58.9 45 - 73 % [facility] Imm Gran Pct Auto 0.4 0.0 - 0.4 % [facility] Lymphocytes Percent Auto 30.1 20 - 40 % [facility] Monocytes Percent Auto 8.6 2 - 11 % [facility] Eosinophils Percent Auto 1.6 0 - 4 % [facility] Basophils Percent Auto 0.4 0 - 2 % [facility] NRBC Pct Auto 0.0 0.0 - 0.2 /100WBC [facility] Neutrophils Absolute Auto 2.9 2.0 - 8.3 x10*3/uL [facility] Imm Gran Abs Auto 0.02 0.00 - 0.03 X10*3/uL [facility] Lymphocytes Absolute Auto 1.5 1.2 - 4.9 X10*3/uL [facility] Monocytes Absolute Auto 0.4 0.1 - 1.2 X10*3/uL [facility] Eosinophils Absolute Auto 0.1 0.0 - 0.4 X10*3/uL [facility] Basophils Absolute Auto 0.0 0.0 - 0.2 X10*3/uL [facility] NRBC Abs Auto 0.000 0.0 - 0.012 X10*3/uL [facility] 10/05/2024 10:5 2 AM EDT 10/05/2024 10:52 AM EDT us Generic External Data Provider LAB BLOOD ORDERAB LES Final Result [facility] [address] [place] [address] [phone] * (ABNORMAL) Comprehensive Metabolic Panel (10/05/2024 10:52 AM EDT) Sodium 139 135 - 145 mmol/L [facility] Potassium 4.1 3.3 - 5.1 mmol/L [facility] Chloride 106 96 - 108 mmol/L [facility] Carbon Dioxide 25 22 - 29 mmol/L [facility] Anion Gap 12 12 - 20 [facility] Urea Nitrogen (BUN) 17(H) 9 - 16 mg/dL [facility] Creatinine, Serum 0.70 0.5 - 1.4 mg/dL [facility] Estimated Glomerular Filt Rate >60 [facility] Comment:Chronic Kidney Disea se: Estimated GFR < 60 mL/min/1.94d5Ayroex Kidney Disease: Estimated GFR < 15 mL/min/1.73m2 Glucose 229(H) 60 - 115 mg/dL [facility] Calcium 9.2 8.4 - 10.2 mg/dL [facility] Bilirubin, Total 0.6 0.0 - 1.0 mg/dL [facility] Aspartate Amino Transferase 23 5 - 31 U/L [facility] Alanine Aminotransferase 28 0 - 31 U/L [facility] Total Protein 7.4 6.5 - 8.0 g/dL [facility] Albumin Level 4.4 3.5 - 5.0 g/dL [facility] Alkaline Phosphatase 71 39 - 117 U/L [facility] 10/05/2024 10:5 2 AM EDT 10/05/2024 10:52 AM EDT us Generic External Data Provider LAB BLOOD ORDERAB LES Final Result [facility] [address] [place] [address] [phone] * (ABNORMAL) POCT HGB A1C (09/12/2024 9:26 AM EDT) Hemoglobin A1C 8.0(A) 4.0 - 5.7 % QC Media Lot # [id number] Lot# Expiration Date Blood 09/12/2024 9:26 AM EDT us Monica Briceno MD POINT OF CARE TEST EN TER/EDIT ORDERABLES Final Result * BI Mammogram Diagnostic Tomosynthesis Bilateral (01/12/2024 10:55 AM EST) Anatomical Region Laterality Modality Breast Bilateral Mammography 01/12/2024 10:5 5 AM EST Narrative 01/12/2024 11:48 AM EST [address] [place] [address] Mammography Report Signed Patient: Cony Saez MR#: [id number] 2 : 1955 Acct:[id number] Age/Sex: 68 / F ADM Date: 01/12/24 Loc: HO.MAMMO Attending Dr: Monica Briceno MD Ordering Physician: Monica Francis MD Results: 2Benign Findings Date of Service: 01/12/24 Follow Up: 1 Year From Orig inal Mammogram Procedure(s): MM tomosynthesis diagnostic BI Accession Number(s): [id number] cc: Monica Francis MD EXAMINATION: MM DIAGNOSTIC [...] Patrick Holt MD 01/12/2024 11:44 AM EST RP Dictated By: Patrick Holt MD Signed By: <Electronically signed by Patrick Holt MD in OV> 01/12/24 1144 DD/ 1055 TD/TT: 01/12/24 1117 Synthetic Department Supervisor: Procedure Note Donotuseinterpreter, Image - 01/12/2024 [facility] [address] [place] [address] Mammography Report Signed Patient: Blank Saez#: [id number] 2 : 8Acct:[id number] Age/Sex: 68 / FADM Date: 01/12/24 Loc: HO.MAMMO Attending Dr: Monica Briceno MD Ordering Physician: Monica Francis MDResults: 2Benign Findings Date of Service: 01/12/24Follow Up: 1 Year From Orig inal Mammogram Procedure(s): MM tomosynthesis diagnostic BI Accession Number(s): [id number] cc: Monica Francis MD EXAMINATION: MM DIAGNOSTIC [...] by: Patrick Holt MD 01/12/2024 11:44 AM [facility] Dictated By: Patrick Holt MD Signed By: <Electronically signed by Patrick Holt MD in OV> 01/12/24 1144 DD/ 1055 TD/TT: 01/12/24 1117 Synthetic Department Supervisor: us Monica Briceno MD IMG BI PROCEDURES Fin al Result * (ABNORMAL) Lipid Panel with Reflex to Direct LDL (11/10/2023 9:37 AM EDT) Triglycerides 160(H) <150 mg/dL [facility] Comment:Desirable Triglyceri de: less than 150 mg/dLBorderline High Triglyceride 150-199 mg/dLHigh Triglyceride: 200-499 mg/dLVery High Triglyceride: greater than or equal to 5OO mg/dL Cholesterol 163 <200 mg/dL [facility] Comment:Desirable Cholestero l: less than 200 mg/dLBorderline High Cholesterol: 200-239 mg/dLHigh Cholesterol: greater than 239 mg/dL LDL Cholesterol Calculated 84 <100 mg/dL [facility] Comment:Desirable LDL: less than 100 mg/dLNear Optimal/Above Optimal LDL: 110- 129 mg/dLBorderline High LDL: 130-159 mg/dLHigh LDL: 160-189 mg/dLVery High LDL: greater than or equal to 190 mg/dL HDL Cholesterol 47 >40 mg/dL [facility] Comment:Desirable HDL: great er than 40 mg/dL Note: This HDL assay may give artificially low results in patients with liver disease. Blood 11/10/2023 9:37 AM EDT 11/10/2023 11:20 AM EDT us Monica Briceno MD LAB BLOOD ORDERABLES Final Result [facility] [address] [place] [phone] * Albumin, Random Urine W/Creatinine (07/28/2023 10:18 AM EDT) Creatinine, Urine 40.48 mg/dL [facility] Microalbumin Urine <5.0 mg/L [facility] Microalbum Creatinine Ratio Ur TNP <30 ug/mg cr [facility] Comment:Unable to calculate albumin/creatinine ratio due to lowmicroalbumin or creatinine result. 07/28/2023 10:1 8 AM EDT 07/28/2023 11:14 AM EDT Monica Briceno MD LAB URINE ORDERABLES Final Result Performing Organization Address [facility] Co de Phone Number [facility] [address] [place] [address] [phone] * Hepatitis C Antibody with Reflex to HCV, RNA, Quantitative, Real-Time PCR (04/29/2023 8:53 AM EDT) Hepatitis C Antibody Nonreactive Nonreactive [facility] Comment:Antibodies to HCV no t detected; does not exclude early acuteHCV infection. Blood Venous blood specimen / Unknown 04/29/2023 8:53 AM EDT 04/29/2023 11:14 AM EDT Monica Briceno MD LAB BLOOD ORDERABLES Final Result Performing Organization Address [facility] Co de Phone Number [facility] [address] [place] [address] [phone] * THINPREP TIS PAP AND HPV mRNA E6/E7 WITH REFLEX TO HPV 16,18/45 (11/08/2021 12:00 AM EDT) Clinical Information: None given [facility] COMMENT SEE COMMENT [facility] Comment: EXPLANATORY NOTE: The Pap is a screening test for cervical cancer. It is not a diagnostic test and is subject to false negative and false positive results. It is most reliable when a satisfactory sample, regularly obtained, is submitted with relevant clinical findings and history, and when the Pap result is evaluated along with historic and current clinical information. COMMENT: This Pap test has been evaluated with computer assisted technology. [facility] Cytotechnologis t: SEE COMMENT [facility] Comment: JUSTICE, CT(ASCP) CT screening location: [place] [address] HPV nRNA E6/E7 Not Detected Not Detected [facility] Comment: Methodology: Cyber Security Manager-Mediated Amplification This assay detects E6/E7 viral messenger RNA (mRNA) from 14 high-risk HPV types (16,18,31,33,35,39,45,51,52,56,58,59,66,68). Cervical sources are required for HPV testing. If a vaginal source from a patient who has had a total hysterectomy with removal of cervix was submitted, please contact the testing laboratory for alternative testing options. For additional information, please refer to http://education.[employer]/faq/IHR185c9 (This link if provided for information/ educational purposes only.) Infection Fungal organisms morphologically consistent with Susan spp. [facility] Interpretation/ Result: Negative for intraepithelial lesion or malignancy. [facility] LMP: NONE GIVEN [facility] Prev. BX: NONE GIVEN [facility] Prev. PAP: NONE GIVEN [facility] SOURCE: None given [facility] Statement Of Adequacy: SEE COMMENT [facility] Comment: Satisfactory for evaluation. Endocervical/transformation zone component present. 11/08/2021 Monica Briceno MD LAB PATHOLOGY ORDERAB LES Final Result [facility] [address] from Last 3 Months or Most Recently Relevant to Health Maintenance Insurance [employer] A[employer] MEDICARE ADVANTAGE HMO DENTAL - [facility] Care Teams Digital Operations Analyst Relationship Specialty Start Date End Date Monica Francis MD [address] [place], [place] PCP - General Family Medicine 10/28/17 Abelino Devine, PharmD [address] [place], [place] Pharmacist Internal Medicine 05/03/24
== END 2024-11-14 08:46 | disposition home or self-care (01) ==
LOC: HO.HHCL 08:45
PROVIDERS: PCP Internal Medicine; Visit Provider Internal Medicine
DX: E11.65 Type 2 diabetes mellitus with hyperglycemia (principal)
CPT/HCPCS: 36415; 85652; 86140

== ENCOUNTER 2024-12-01 08:43 | Outpatient (REF) | payer MEDICARE, MEDICAID, SELFPAY ==
--- OUTSIDE RECORDS SUMMARY | 2024-12-01 09:31 | XMS_ITS | Encounter Summary ---
Author Organization [employer] Address [address] [facility] 7t [place] [address] Care Team Providers Care Restaurant Floor Manager Name Role Phone Monica Francis MD Primary Care Provide r Abelino Devine PharmD Unavailable [phone] Reason for Visit * Reason Comments Med Refill Encounter Details Date Type Department Care Team (Late st Contact Info) Description 10/03/[address] [facility] [address] [place] [address] Monica Francis MD [address] [place] [address] Social History Tobacco Use Types Packs/Day Years [...] the past 12 months, has t he [employer], gas, oil or water company threatened to [...] Care Team (Late st Contact Info) Description 12/12/2024 11:30 AM EDT Office Visit [facility] [address] [place] [phone] Monica Francis MD [address] [place] [phone] 01/27/2025 9:30 AM EST Medication Management [facility] [address] [place] [phone] Abelino Devine, PharmD [address] [place] [phone] documented as of this encounter Visit Diagnoses Not on filedocumented in this encounter Additional Health Concerns Assessment Noted Time PHQ-9 Depression Total Score: 0 07/28/19 24 10:07 AM EDT documented as of this encounter Care Teams Restaurant Floor Manager Relationship Specialty Start Date End Date Monica Francis MD [address] [place] [phone] PCP - General Family Medicine 10/28/17 Abelino Devine, RobbieD [address] [place] [phone] Pharmacist Internal Medicine 05/03/24 documented as of this encounter
--- OUTSIDE RECORDS SUMMARY | 2024-12-01 09:31 | XMS_ITS | Clinical Summary ---
Author Organization [facility] Address [address] [facility] [address] [place] [phone] Phone Care Team Providers Care Software Program Manager Name Role Phone Monica Francis MD [...] by 12/14/2024. This should be done at [facility]. Assessment & Plan (12/07/2023 10:50 AM [...] thyroid gland. She will do this at [facility]. Assessment & Plan (05/07/2023 11:23 AM EDT): The patient has subcentimeter nodules. We cannot biopsy these at the present time because they are too small. I recommend repeating an ultrasound 11/20/2023. She should get this done at [facility]. Diaphoresis 05/07/2023 Assessment & Plan (05/07/2023 [...] 9:10 AM EST Office Visit [facility] [address] [place] [address] [place] [address] Yoav Haas DO [address] [place] [address] [email or web address] Health Maintenance Due Date Last Done Comments [...] VACCINE (#1) 2024 COVID-19 VACCINE (1 - 2024-2 6 season) 2024 MAMMOGRAM 01/06/2025 01/06/2023, 07/19/2018 RSV [...] topic Medical Devices Not on file [facility] REPLAC[facility] Member Subscriber Plan / Payer ( fective 2024-Present) Name:Cony Saez Relation to Subscriber:Self Name:Cony Saez Payer ID:[id number] (NAIC) Type:Medicare Address: [address] [place] [facility] MEDICARE REPLACEMENT [place] MEDICARE [facility]PLACEMENT [facility] [place] [facility] MEDICARE REPLACEMENT [place] [facility] MEDIC[facility] REPLACEMENT Care Teams Software Program Manager Relationship Specialty Start Date End Date Monica Francis MD [address] [place] [phone] PCP - General Internal Medicine 04/08/23 Additional Source Comments The information contained in this document represents components of the legal health record. It is not the complete legal health record.[facility]
--- OUTSIDE RECORDS SUMMARY | 2024-12-01 09:31 | XMS_ITS | Clinical Summary ---
Author Organization [employer] Address [address] [facility] 7t [place] [address] Care Team Providers Care Shipping Technician Name Role Phone Monica Francis MD Primary Care Provide r Abelino Devine PharmD Unavailable [phone] Allergies Active Allergy Reactions Criticality Noted Date [...] hyperglycemia, without long-term current use of insulin ([facility]) TAKE 1 TABLET BY MOUTH TWICE DAILY 180 tablet 1 025 Active Blood Glucose Monitoring Suppl (Accu-Chek Guide) w/Device kitIndications:Ty pe 2 diabetes mellitus with hyperglycemia, without long-term current use of insulin ([facility]) Use to check blood sugar 2 times daily as directed 1 kit 025 Active glucose blood (Accu-Chek Guide Test) test stripIndications: Type 2 diabetes mellitus with hyperglycemia, without long-term current use of insulin ([facility]) Use to check blood sugar twice daily 100 each 11 025 2025 Active Lancet Devices (Lancing Device) miscIndications:T ype 2 diabetes mellitus with hyperglycemia, without long-term current use of insulin ([facility]) Use to test blood sugar 1 each 025 Active Lancets 33G miscIndications:T ype 2 diabetes mellitus with hyperglycemia, without long-term current use of insulin ([facility]) Use to check blood sugar twice daily 100 each 5 025 Active insulin glargine (Lantus) 100 UNIT/ML injectionIndicati ons:Type 2 diabetes mellitus with hyperglycemia, without long-term current use of insulin ([facility]) Inject 22 Units under the skin at bedtime. 025 Active lisinopril 10 MG tabletIndications :Primary hypertension Take 1 tablet (10 mg) by mouth Once per day. 30 tablet 11 025 2025 Active Accu-Chek Softclix Lancets lancetsIndication s:Type 2 diabetes mellitus with hyperglycemia, without long-term current use of insulin (HCC) Use to check blood sugar twice daily 100 each 11 025 2024 Discontinued(A lternate therapy) empagliflozin (Jardiance) 10 MGIndications:Typ e 2 diabetes mellitus with hyperglycemia, without long-term current use of insulin (HCC) Take 1 tablet (10 mg) by mouth Once per day. 30 tablet 5 2024 Discontinued(S anjel effects) lisinopril 5 MG tabletIndications :Primary hypertension TAKE 1 TABLET BY MOUTH EVERY DAY 90 tablet 1 025 2024 Discontinued(I neffective) insulin glargine (Lantus) 100 UNIT/ML injectionIndicati ons:Type 2 diabetes mellitus with hyperglycemia, without long-term current use of insulin (HCC) Inject 18 Units under the skin at bedtime. 10 mL 025 2024 Discontinued(R eorder (will not trigger notification to Pharmacy)) insulin glargine (Lantus) 100 UNIT/ML injectionIndicati ons:Type 2 diabetes mellitus with hyperglycemia, without long-term current use of insulin (HCC) Inject 20 Units under the skin at bedtime. 10 mL 025 2024 Discontinued(R eorder (will not trigger notification [...] She should get this done at [facility]. Weight loss 04/28/2023 Assessment & Plan [...] <110 PP not at goal <180 Called [facility] pharmacy, they are able to get Trulicty for patient at 3mg weekly dosing, order placed Also replaced Freestyle Lite so that patient can check her blood sugars as she has been, twice a day Wants to followup with her PCP for ongoing DM2 mgmt, appointment made for June Encounters Date Type Department Care Team Description 11/25/2024 Travel 11/17/2024 1:00 PM EDT Office Visit [facility] [address] [place] [phone] Africa Thrasher FNP Primary hypertension (Primary Dx) 11/17/2024 Travel 11/15/2024 Results Follow-Up [facility] [address] [place] [address] Lesley Mathews MD POCT glucose manually resulted, Sed Rate by Modified Westergren, C-reactive Protein 11/11/2024 Travel 11/04/2024 Travel 10/26/2024 10:00 AM EDT Office Visit [facility] [address] [place] [phone] Lesley Mathews MD Type 2 diabetes mellitus with hyperglycemia, without long-term current use of insulin ([facility]) (Primary Dx); Elevated glucose 10/26/2024 Travel 10/05/2024 Orders Only GENERIC EXTERNAL DATA DEPARTMENT Provider, Generic External Data 10/03/2024 Refill [facility] [address] [place], [place] [phone] Monica Francis MD 10/03/2024 Refill [facility] [address] [place], [place] [phone] Monica Francis MD Primary hypertension 09/12/2024 Refill [facility] [address] [place], [place] [phone] Monica Francis MD Type 2 diabetes mellitus with hyperglycemia, without long-term current use of insulin ([facility]) 09/12/2024 Travel from Last 3 Months Immunizations [...] surface antigen) 12/31/2012,10/23/2011 Pfizer Covid-19 Vaccine 12+ 11/25/2024, Pfizer Covid-19 Vaccine 12+ shai-sucrose (Guerrero Cap) [...] Sign Reading Time Taken Comments Blood Pressure 136/60 11/25/2024 10:00 AM EDT Pulse 70 11/25/2024 10:00 AM EDT Temperature 37.2 C (98.9 F) 11/17/2024 12:52 PM EDT Respiratory Rate 16 11/17/2024 12:5 2 PM EDT Oxygen Saturation 97% 10/26/2024 9:55 AM EDT Inhaled Oxygen Concentration - - Weight 55.2 kg (121 lb 12.8 oz) 025 12:52 PM EDT Height 154.9 cm (5' 1 ) 11/17/2024 12:5 2 PM EDT Body Mass Index 23.01 11/17/2024 12:52 PM EDT Plan of Treatment Upcoming Encounters Date Type Department Care Team (Late st Contact Info) Description 12/12/2024 11:30 AM EDT Office Visit [facility] [address] [place] [phone] Monica Francis MD [address] [place] [address] 01/27/2025 9:30 AM EST Medication Management [facility] [address] [place] [address] Abelino Devine, PharmD [address] [place] [address] Health Maintenance Due Date Last Done Comments [...] Additional history exists Dental X-Ray: B[facility]ings 08/14/2024 08/14/19, 05/06/2023, 05/01/2022 Lipid Panel 11/09/2024 11/10/2023, 06/16, 04/20/2021, Additional history exists Diabetes: Hemoglobin A1C 12/13/2024 025, 05/11/2024, 01/22/2024, Additional history exists Mammogram 01/11/2025 01/12/2024, 12/18, 01/06/2023, Additional history exists SDOH Screening 05/02/2025 05/02/2024 Tobacco Screening 11/17/2025 11/17/2024 HPV/Cotest 11/08/2026 11/08/2021, 10/28/2016 Pap Smear 11/08/2026 11/08/2021 DTaP/Tdap/Td Vaccines (3 - Td or Tdap) 06/17/2034 06/17/2024, 10/23/2011, 11/27/2009 RSV Patients and Patients Aged 60 years or older Completed 11/16/2022 Pneumococcal Vaccine: 50+ Years Completed 12/24/2022, 11/16/2006 Hepatitis C Screening Completed 04/29/2023 Zoster Vaccines Completed 09/12/2024, 0503/2024, 10/01/2012 Influenza Vaccine Completed 11/11/2024, , 11/16/2022, Additional history exists COVID-19 Vaccine Completed 11/25/2024, , 11/17/2022, Additional history exists HIB Vaccines Aged Out [...] Procedure Name Priority Date/Time Associated Diagnosis Comments C-REACTIVE PROTEIN Routine 11/14/2024 8: 50 AM EDT Type 2 diabetes mellitus with hyperglycemia, without long-term current use of insulin (CMS/HCC) SED RATE BY MODIFIED WESTERGREN Routine 11/14/2024 8:50 AM EDT Type 2 diabetes mellitus with hyperglycemia, without long-term current use of insulin (CMS/HCC) POCT GLUCOSE Routine 10/26/2024 10:00 AM EDT [...] Recently Relevant to Health Maintenance Results * (ABNORMAL) Sed Rate by Modified Westergren (11/14/2024 8:50 AM EDT) Erythrocyte Sedimentation Rate 22(H) 0 - 20 MM/HR [facility] Comment:Patients with polycy themia and many hemoglobin abnormalitiesmay have depressed sed rates whereas patients with anemiamay have elevated sed rates. Blood Venous blood specimen / Unknown 11/14/2024 8:50 AM EDT 11/14/2024 11:13 AM EDT us Lesley Mathews MD LAB BLOOD ORDERABLES Final Re sult Performing Organization Address City/[facility]/ZIP Co de Phone Number [facility] [address] [place] [address] [phone] * (ABNORMAL) C-reactive Protein (11/14/2024 8:50 AM EDT) C Reactive Protein 1.59(H) < or = 0.50 mg/dL [facility] Blood Venous blood specimen / Unknown 11/14/2024 8:50 AM EDT 11/14/2024 11:13 AM EDT us Lesley Mathews MD LAB BLOOD ORDERABLES Final Re sult Performing Organization Address City/[facility]/ZIP Co de Phone Number [facility] [address] [place] [phone] * POCT glucose manually resulted (10/26/2024 10:00 AM EDT) Glucose Blood, POC 200 60 - 200 mg/dL Blood Capillary blood specimen / Unknown 10/26/2024 10:00 AM EDT Lesley Mathews MD POINT OF CARE TEST ENTER/EDIT ORDERABLES Final Result * CBC auto differential (10/05/2024 10:52 AM EDT) White Blood Count 5.0 4.8 - 10.8 X10*3/uL [facility] Red Blood Count 4.43 4.20 - 5.50 X10*6/uL [facility] Hemoglobin 13.6 12.0 - 16.0 g/dl [facility] Hematocrit 39.9 37.0 - 47.0 % [facility] Mean Corpuscular Volume 90.1 80.0 - 98.0 fL [facility] Mean Corpuscular Hemoglobin 30.7 27.0 - 33.0 pg [facility] Mean Corpuscular HGB Conc 34.1 31.0 - 35.0 g/dl [facility] Red Cell Distribution Width 12.2 11.0 - 16.0 % [facility] Platelet Count 210 160 - 400 X10*3/uL [facility] Mean Platelet Volume 11.4 9.4 - 12.3 fL [facility] Neutrophils Percent Auto 58.9 45 - 73 % [facility] Imm Gran Pct Auto 0.4 0.0 - 0.4 % [facility] Lymphocytes Percent Auto 30.1 20 - 40 % [facility] Monocytes Percent Auto 8.6 2 - 11 % [facility] Eosinophils Percent Auto 1.6 0 - 4 % [facility] Basophils Percent Auto 0.4 0 - 2 % [facility] NRBC Pct Auto 0.0 0.0 - 0.2 /100WBC [facility] Neutrophils Absolute Auto 2.9 2.0 - 8.3 x10*3/uL [facility] Imm Gran Abs Auto 0.02 0.00 - 0.03 X10*3/uL [facility] Lymphocytes Absolute Auto 1.5 1.2 - 4.9 X10*3/uL [facility] Monocytes Absolute Auto 0.4 0.1 - 1.2 X10*3/uL [facility] Eosinophils Absolute Auto 0.1 0.0 - 0.4 X10*3/uL [facility] Basophils Absolute Auto 0.0 0.0 - 0.2 X10*3/uL [facility] NRBC Abs Auto 0.000 0.0 - 0.012 X10*3/uL [facility] 10/05/2024 10:5 2 AM EDT 10/05/2024 10:52 AM EDT us Generic External Data Provider LAB BLOOD ORDERAB LES Final Result [facility] [address] [place] [phone] * (ABNORMAL) Comprehensive Metabolic Panel (10/05/2024 10:52 AM EDT) Sodium 139 135 - 145 mmol/L [facility] Potassium 4.1 3.3 - 5.1 mmol/L [facility] Chloride 106 96 - 108 mmol/L [facility] Carbon Dioxide 25 22 - 29 mmol/L [facility] Anion Gap 12 12 - 20 [facility] Urea Nitrogen (BUN) 17(H) 9 - 16 mg/dL [facility] Creatinine, Serum 0.70 0.5 - 1.4 mg/dL [facility] Estimated Glomerular Filt Rate >60 [facility] Comment:Chronic Kidney Disea se: Estimated GFR < 60 mL/min/[id number] Kidney Disease: Estimated GFR < 15 mL/min/1.73m2 Glucose 229(H) 60 - 115 mg/dL [facility] Calcium 9.2 8.4 - 10.2 mg/dL [facility] Bilirubin, Total 0.6 0.0 - 1.0 mg/dL [facility] Aspartate Amino Transferase 23 5 - 31 U/L [facility] Alanine Aminotransferase 28 0 - 31 U/L [facility] Total Protein 7.4 6.5 - 8.0 g/dL [facility] Albumin Level 4.4 3.5 - 5.0 g/dL [facility] Alkaline Phosphatase 71 39 - 117 U/L [facility] 10/05/2024 10:5 2 AM EDT 10/05/2024 10:52 AM EDT us Generic External Data Provider LAB BLOOD ORDERAB LES Final Result [facility] [address] [place] [phone] * (ABNORMAL) POCT HGB A1C (09/12/2024 [...] AM EST Narrative 01/12/2024 11:48 AM EST [facility] [address] [place] [address] Mammography Report Signed Patient: Cony Saez MR#: [id number] 2 : 1955 Acct:[id number] Age/Sex: 68 / F ADM Date: 01/12/24 Loc: [facility] Attending Dr: Monica Briceno MD Ordering Physician: Monica Francis MD Results: 2Benign Findings Date of Service: 01/12/24 Follow Up: 1 Year From Orig inal Mammogram Procedure(s): MM tomosynthesis diagnostic BI Accession Number(s): [id number] cc: Monica Francis MD EXAMINATION: MM DIAGNOSTIC [...] 01/12/24 1144 DD/ 1055 TD/TT: 01/12/24 1117 Proof Carrier: Procedure Note Donotuseinterpreter, Image - 01/12/2024 [facility] [address] [place] [address] Mammography Report Signed Patient: Blank Saez#: [id number] 2 : 8Acct:[id number] Age/Sex: 68 / FADM Date: 01/12/24 Loc: HO.MAMMO Attending Dr: Monica Briceno MD Ordering Physician: Monica Francis MDResults: 2Benign Findings Date of Service: 01/12/24Follow Up: 1 Year From Orig inal Mammogram Procedure(s): MM tomosynthesis diagnostic BI Accession Number(s): [id number] cc: Monica Francis MD EXAMINATION: MM DIAGNOSTIC [...] by: Patrick Holt MD 01/12/2024 11:44 AM [facility] Dictated By: Patrick Holt MD Signed By: <Electronically signed by Patrick Holt MD in OV> 01/12/24 1144 DD/ 1055 TD/TT: 01/12/24 1117 Proof Carrier: us Monica Briceno MD IMG BI PROCEDURES Fin al Result * (ABNORMAL) Lipid Panel with Reflex to Direct LDL (11/10/2023 9:37 AM EDT) Triglycerides 160(H) <150 mg/dL [facility] Comment:Desirable Triglyceri de: less than 150 mg/dLBorderline High Triglyceride 150-199 mg/dLHigh Triglyceride: 200-499 mg/dLVery High Triglyceride: greater than or equal to 5OO mg/dL Cholesterol 163 <200 mg/dL [facility] Comment:Desirable Cholestero l: less than 200 mg/dLBorderline High Cholesterol: 200-239 mg/dLHigh Cholesterol: greater than 239 mg/dL LDL Cholesterol Calculated 84 <100 mg/dL [facility] Comment:Desirable LDL: less than 100 mg/dLNear Optimal/Above Optimal LDL: 110- 129 mg/dLBorderline High LDL: 130-159 mg/dLHigh LDL: 160-189 mg/dLVery High LDL: greater than or equal to 190 mg/dL HDL Cholesterol 47 >40 mg/dL [facility] Comment:Desirable HDL: great er than 40 mg/dL Note: This HDL assay may give artificially low results in patients with liver disease. Blood 11/10/2023 9:37 AM EDT 11/10/2023 11:20 AM EDT us Monica Briceno MD LAB BLOOD ORDERABLES Final Result [facility] [address] [place] [phone] * Albumin, Random Urine W/Creatinine (07/28/2023 10:18 AM EDT) Creatinine, Urine 40.48 mg/dL [facility] Microalbumin Urine <5.0 mg/L [facility] Microalbum Creatinine Ratio Ur TNP <30 ug/mg cr [facility] Comment:Unable to calculate albumin/creatinine ratio due to lowmicroalbumin or creatinine result. 07/28/2023 10:1 8 AM EDT 07/28/2023 11:14 AM EDT us Monica Briceno MD LAB URINE ORDERABLES Final Result Performing Organization Address [facility]/ZIP Co de Phone Number [facility] [address] [place] [address] [phone] * Hepatitis C Antibody with Reflex to HCV, RNA, Quantitative, Real-Time PCR (04/29/2023 8:53 AM EDT) Hepatitis C Antibody Nonreactive Nonreactive [facility] Comment:Antibodies to HCV no t detected; does not exclude early acuteHCV infection. Blood Venous blood specimen / Unknown 04/29/2023 8:53 AM EDT 04/29/2023 11:14 AM EDT us Monica Briceno MD LAB BLOOD ORDERABLES Final Result Performing Organization Address [facility] Co de Phone Number [facility] [address] [place] [phone] * THINPREP TIS PAP AND HPV mRNA E6/E7 WITH REFLEX TO HPV 16,18/45 (11/08/2021 12:00 AM EDT) Clinical Information: None given [facility] COMMENT SEE COMMENT [facility] [...] has been evaluated with computer assisted technology. [facility] Cytotechnologis t: SEE COMMENT [facility] Comment: JUSTICE, CT(ASCP) CT screening location: [address] [address] HPV nRNA E6/E7 Not Detected Not Detected [facility] Comment: Methodology: Photographer Apprentice-Mediated Amplification This assay detects E6/E7 viral messenger RNA (mRNA) from 14 high-risk HPV types (16,18,31,33,35,39,45,51,52,56,58,59,66,68). Cervical sources are required for HPV testing. If a vaginal source from a patient who has had a total hysterectomy with removal of cervix was submitted, please contact the testing laboratory for alternative testing options. 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 [facility] Interpretation/ Result: Negative for intraepithelial lesion or malignancy. [facility] LMP: NONE GIVEN [facility] Prev. BX: NONE [facility]IVEN [facility] Prev. PAP: NONE [facility]IVEN [facility] SOURCE: None given [facility] Statement Of Adequacy: SEE COMMENT [facility] Comment: Satisfactory for evaluation. Endocervical/transformation zone component present. 11/08/2021 Monica Briceno MD LAB PATHOLOGY ORDERAB LES Final Result [facility] [address] from Last 3 Months or Most Recently Relevant to Health Maintenance Insurance [address] [place] [address] [facility] MEDIC[facility]ANT[facility] Care Teams Shipping Technician Relationship Specialty Start Date End Date Monica Francis MD [address] [place] [address] PCP - General Family Medicine 10/28/17 Abelino Devine, PharmD [address] [place] [address] Pharmacist Internal Medicine 05/03/24
--- OUTSIDE RECORDS SUMMARY | 2024-12-01 09:31 | XMS_ITS | Encounter Summary ---
Author Organization [employer] Address [address] [facility] 7t [place] [address] Care Team Providers Care Sports Psychologist Name Role Phone Monica Francis MD Primary Care Provide r Abelino Devine PharmD Unavailable [phone] Reason for Visit * Reason Comments Chart update mammo Encounter Details Date Type Department Care Team (Late Contact Info) Description 08/07/2022 Abstract [facility] [address] [place] [address] [phone] Monica Francis MD [address] [place] [address] [phone] Social History Tobacco Use Types Packs/Day Years [...] Department Care Team (Late Contact Info) Description 12/12/2024 11:30 AM EDT Office Visit [facility] [address] [place] [address] [phone] Monica Francis MD [address] [place] [address] [phone] 01/27/2025 9:30 AM EST Medication Management [facility] [address] [place], [place] [phone] Abelino Devine, PharmD [address] [place] [address] documented as of this encounter Procedures Procedure [...] on filedocumented in this encounter Care Teams Sports Psychologist Relationship Specialty Start Date End Date Monica Francis MD [address] [place] [phone] PCP - General Family Medicine 10/28/17 Abelino Devine, PharmD [address] [place] [phone] Pharmacist Internal Medicine 05/03/24 documented as of this encounter
--- OUTSIDE RECORDS SUMMARY | 2024-12-01 09:31 | XMS_ITS | Encounter Summary ---
Author Organization [employer] Address [address] [facility] 7t [place] [address] Care Team Providers Care Guest Experience Specialist Name Role Phone Monica Francis MD Primary Care Provide r Abelino Devine PharmD Unavailable [phone] Reason for Visit * Reason Comments Med Refill Encounter Details Date Type Department Care Team (Late st Contact Info) Description 09/12/2024 Refill [facility] [address] [employer], [place] [phone] Monica Francis MD [address] [place], [place] [phone] Type 2 diabetes mellitus with hyperglycemia, without long-term current use of insulin ([facility]) Social History Tobacco Use Types Packs/Day Years [...] Description 12/12/2024 11:30 AM EDT Office Visit [facility] [address] [place] [phone] Monica Francis MD [address] [place] [phone] 01/27/2025 9:30 AM EST Medication Management [facility] [address] [place] [phone] Abelino Devine, PharmD [address] [place] [phone] documented as of this encounter Visit Diagnoses Diagnosis Type 2 diabetes mellitus with hyperglycemia, without long-term current use of insulin (HCC) documented in this encounter Additional Health Concerns Assessment Noted Time PHQ-9 Depression Total Score: 0 07/28/19 24 10:07 AM EDT documented as of this encounter Care Teams Guest Experience Specialist Relationship Specialty Start Date End Date Monica Francis MD [address] [place], [place] [phone] PCP - General Family Medicine 10/28/17 Abelino Devine, Wilber [address] [place] [address] Pharmacist Internal Medicine 05/03/24 documented as of this encounter
--- OUTSIDE RECORDS SUMMARY | 2024-12-01 09:31 | XMS_ITS | Encounter Summary ---
Author Organization [employer] Address 75 [facility] 7t [place] [address] Care Team Providers Care Religious Assistant Name Role Phone Monica Francis MD Primary Care Provide r Abelino Devine PharmD Unavailable [phone] Reason for Visit * Reason Comments Med Refill Encounter Details Date Type Department Care Team (Late st Contact Info) Description 01/28/[address] [facility] MEDICINE [address] [place] [address] Monica Francis MD 230 [place] [address] Type 2 diabetes mellitus without complication, without long-term current use of insulin ([facility]) Social History Tobacco Use Types [...] Description 12/12/2024 11:30 AM EDT Office Visit [facility] MEDICINE [address] [place] [address] Monica Francis MD [address] [place] [address] 01/27/2025 9:30 AM EST Medication Management [facility] MEDICINE [address] [place] [address] Abelino Devine PharmD [address] [place] [address] documented as of this encounter Visit Diagnoses Diagnosis Type 2 diabetes mellitus without complication, without long-term current use of insulin (HCC) documented in this encounter Care Teams Religious Assistant Relationship Specialty Start Date End Date Monica Francis MD [address] [place] [address] [phone] PCP - General Family Medicine 10/28/17 Abelino Devine, PharmD [address] [place] [address] [phone] Pharmacist Internal Medicine 05/03/24 documented as of this encounter
--- OUTSIDE RECORDS SUMMARY | 2024-12-01 09:31 | XMS_ITS | Encounter Summary ---
Author Organization [employer] Address 75 [facility] 7t [place] [address] Care Team Providers Care Home Health Clinician Name Role Phone Monica Francis MD Primary Care Provide r Abelino Devine PharmD Unavailable [phone] Encounter Details Date Type Department Care Team ([facility] st Contact Info) Description 03/05/2023 Telephone [facility] MEDICINE [address] [place], [place] [phone] Monica Francis MD [address] [place], [place] [phone] Social History Tobacco Use Types Packs/Day Years [...] Description 12/12/2024 11:30 AM EDT Office Visit [facility] MEDICINE [address] [place] [address] Monica Francis MD [address] [place] [address] 01/27/2025 9:30 AM EST Medication Management [facility] MEDICINE [address] [place] [address] Abelino Devine, PharmD [address] [place] [address] 8[address] documented as of this encounter Visit Diagnoses Not on filedocumented in this encounter Care Teams Home Health Clinician Relationship Specialty Start Date End Date Monica Francis MD [address] [place] [address] PCP - General Family Medicine 10/28/17 Abelino Devine, PharmD [address] [place] [phone] Pharmacist Internal Medicine 05/03/24 documented as of this encounter
--- OUTSIDE RECORDS SUMMARY | 2024-12-01 09:31 | XMS_ITS | Encounter Summary ---
Author Organization [employer] Address 75 [facility] 7t [place] [address] Care Team Providers Care Bobbin Cleaner Hand Name Role Phone Monica Francis MD Primary Care Provide r Abelino Devine PharmD Unavailable Encounter Details Date Type Department Care Team (Late st Contact Info) Description 03/31/2022 Orders Only [facility] MEDICINE 230 [place] [address] Anastasiya Torrez DO 230 [place], [place] [phone] Social History Tobacco Use Types Packs/Day Years [...] Description 12/12/2024 11:30 AM EDT Office Visit [facility] MEDICINE [address] [place] [address] [phone] Monica Francis MD 230 [place], [place] [phone] 01/27/2025 9:30 AM EST Medication Management [facility] MEDICINE [address] [place], [place] [phone] Abelino Devine, PharmD [address] [place] [address] documented as of this encounter Visit Diagnoses Not on filedocumented in this encounter Care Teams Bobbin Cleaner Hand Relationship Specialty Start Date End Date Monica Francis MD [address] [place] [phone] PCP - General Family Medicine 10/28/17 Abelino Devine, RobbieD [address] [place] [address] Pharmacist Internal Medicine 05/03/24 documented as of this encounter
[2024-12-01 12:07] LABS: Anion Gap 13 (12-20); Blood Urea Nitrogen 14 mg/dL (9-16); Calcium 9.3 mg/dL (8.4-10.2); Carbon Dioxide 24 mmol/L (22-29); Chloride 108 mmol/L (96-108); Estimated Glomerular Filt Rate > 60; Potassium 4.1 mmol/L (3.3-5.1); Sodium 141 mmol/L (135-145)
== END 2024-12-01 08:44 | disposition home or self-care (01) ==
LOC: HO.HHCL 08:43
PROVIDERS: PCP Internal Medicine; Visit Provider Nurse Practitioner Family
DX: Z13.89 Encounter for screening for other disorder (principal)
CPT/HCPCS: 36415; 80048

== ENCOUNTER 2025-01-02 15:29 | Outpatient (REF) | payer MEDICARE, SELFPAY ==
--- NOTE | ~2025-01-02 | US_ITS ---
EXAMINATION: US THYROID CLINICAL INFORMATION: Nontoxic multinodular goiter. COMPARISON: December 16, 2023 TECHNIQUE: Linear transducer grayscale and color Doppler examination with attention to the region of the thyroid. FINDINGS: SIZE: Measurements of the thyroid lobes and nodules are given in sagittal, anteroposterior and transverse dimensions respectively. Right Thyroid Lobe: 5.2 x 1.0 x 1.7 cm, volume 4.6 mL. Previous: 5.2 x 1.0 x 1.8 cm, volume: 4.7 cc. Parenchyma: The gland echotexture is heterogeneous. Thyroid vascularity is normal. Left Thyroid Lobe: 4.3 x 1.2 x 1.3 cm, volume 3.6 mL. Previous: 4.6 x 1.1 x 1.6 cm, volume: 4.2 cc. Parenchyma: The gland echotexture is heterogeneous. Thyroid vascularity is normal. Isthmus: 0.3 cm in maximum AP dimension. Previous: 0.3 cm Estimated total number of nodules greater than or equal to 1 cm: 0. Chucking Machine Operator nodules are described as follows: 1. Location: Midportion, right lobe. Size: 0.3 x 0.2 x 0.3 cm, volume 0.007 mL. Previous: 0.3 x 0.2 x 0.3 cm, volume: 0.009 cc. Nodule characteristics: Composition: Solid (2). Echogenicity: Very hypoechoic (3). Shape: Not taller than wide (0). Margins: Smooth (0). Echogenic Foci: None (0). ACR TI-RADS total points: 5 ACR TI-RADS category: 4 2. Location: Lower pole right lobe. Size: 0.5 x 0.5 x 0.5 cm, volume 0.07 mL. Previous: 0.7 x 0.4 x 0.5 cm. Nodule characteristics: Composition: Solid (2). Echogenicity: Hypoechoic (2). Shape: Not taller than wide (0). Margins: Smooth (0). Echogenic Foci: None (0). ACR TI-RADS total points: 4 ACR TI-RADS category: 4 3. Location: Upper pole, left lobe. Size: 0.6 x 0.4 x 0.8 cm, volume 0.1 mL. Previous: 0.7 x 0.4 x 0.6 cm, volume: 0.09 cc. Nodule characteristics: Composition: Solid (2). Echogenicity: Hypoechoic (2). Shape: Not taller than wide (0). Margins: Ill-defined (0). Echogenic Foci: None (0). ACR TI-RADS total points: 4 ACR TI-RADS category: 4 NODES: No lymphadenopathy is seen in the tissue surrounding the thyroid gland. US/US thyroid IMPRESSION: ACR TI RADS category 4. ACR TI-RADS RECOMMENDATION REFERENCE: Ultrasound-guided fine-needle aspiration, followup ultrasound, no further follow up. * TR1 (0 point) and TR2 (2 points): No FNA or follow up. * TR3 (3 points): FNA if more than or equal to 2.5 cm in maximum dimension, followup ultrasound in 1, 3 and 5 years if 1.5 to 2.4 cm in maximum dimension. * TR4 (4-6 points): FNA if more than or equal to 1.5 cm in maximum dimension, followup ultrasound in 1, 2, 3 and 5 years if 1 to 1.4 cm in maximum dimension. * TR5 (more than or equal to 7 points): FNA if more than or equal to 1 cm in maximum dimension, followup ultrasound every year for 5 years if 0.5 to 0.9 cm in maximum dimension. * TR3, TR4 or TR5 nodules that are below the size threshold for followup receive no follow up. Electronically signed by: Yaw Michelle MD 01/03/2025 07:04 AM [facility]
--- OUTSIDE RECORDS SUMMARY | 2025-01-03 06:05 | XMS_ITS | Clinical Summary ---
Author Organization [facility] Address [address] [facility] [address] [place] [phone] Phone Care Team Providers Care Tie Inspector Name Role Phone Monica Dunaway MD Primary Care Provider Allergies Active Allergy [...] 9:10 AM EST Office Visit [facility] [address] [place] [address] Yoav Haas DO [address] [place] [address] [email or web address] Health Maintenance Due Date [...] patient's age to complete this topic IPV VACCINES Aged Out No longer eligi ble based on patient's age to complete this topic MENINGOCOCCAL VACCINES (ACWY) Aged Out No longer eligible based on patient's age to complete this topic MENINGOCOCCAL VACCINES (B) Aged Out N o longer eligible based on patient's age to complete this topic Medical Devices Not on file Insurance [facility] MEDICARE REPLACEMENT [facility] MED[facility]AC[place] [facility] [place] [place] [facility] [place]ARE [facility] [facility] MED[place]ARE [place] [facility] MEDICARE REPLACEMENT Care Teams Tie Inspector Relationship Specialty Start Date End Date Monica Dunaway MD [address] [place] [phone] PCP - General Internal Medicine 04/08/23 Additional Source Comments The information contained in this document represents components of the legal health record. It is not the complete legal health record.[facility]
== END 2025-01-02 15:30 | disposition home or self-care (01) ==
LOC: HO.US 15:29
PROVIDERS: PCP Internal Medicine; Visit Provider Internal Medicine Endocrinology, Diabetes & Metabolism
DX: E04.2 Nontoxic multinodular goiter (principal)
CPT/HCPCS: 76536

== ENCOUNTER → 2025-01-02 16:08 | Outpatient (BNV) | payer MEDICARE, SELFPAY | PROVIDERS: PCP Internal Medicine; Visit Provider Radiology Diagnostic Radiology | DX: E04.2 Nontoxic multinodular goiter (principal) | CPT/HCPCS: 76536 ==

== ENCOUNTER 2025-02-10 13:08 | Outpatient (REF) | payer MEDICARE, SELFPAY ==
--- NOTE | ~2025-02-10 | MM_ITS ---
EXAMINATION: MM SCREENING DIGITAL BREAST TOMOSYNTHESIS, BILATERAL CLINICAL INFORMATION: Screening. Asymptomatic. COMPARISON: Mammography: Comparison is made with available priors TECHNIQUE: Digital breast mammography with tomosynthesis is performed in both the craniocaudal and mediolateral oblique views along with computer-aided detection (CAD). FINDINGS: There are scattered areas of fibroglandular density. Oval mass in the superior right breast anterior to middle depth on MLO view stable dating back to 2022 and previously demonstrated to be 2 adjacent simple to minimally complicated cyst on ultrasound. There are no significant masses, abnormal calcifications, or other abnormalities. MM/MM tomosynthesis screening BI IMPRESSION: No mammographic evidence of malignancy. ASSESSMENT: BI-RADS Category 2: Benign RECOMMENDATION: Routine annual mammography screening. 1 year F/U This examination should not preclude the clinical evaluation of a suspicious palpable abnormality. This patient's information was entered into a reminder system with a target due date for their next mammogram. Electronically signed by: Flory Mendosa DO 02/13/2025 05:36 PM [facility] LYNCH
--- OUTSIDE RECORDS SUMMARY | 2025-02-10 13:11 | XMS_ITS | Clinical Summary ---
Author Organization [facility] Address [address] [facility] [address] [place] [phone] Phone Care Team Providers Care Gifted Teacher Name Role Phone Monica Dunaway MD Primary [...] by 12/14/2024. This should be done at [facility]. Assessment & Plan (12/07/2023 10:50 AM [...] thyroid gland. She will do this at [facility]. Assessment & Plan (05/07/2023 11:23 AM EDT): The patient has subcentimeter nodules. We cannot biopsy these at the present time because they are too small. I recommend repeating an ultrasound 11/20/2023. She should get this done at [facility]. Diaphoresis 05/07/2023 Assessment & Plan (05/07/2023 [...] Description 03/15/2025 9:10 AM EST Office Visit [facility] 22 [place] [address] Yoav Haas DO 22 [place] [address] [email or web address] Health Maintenance Due Date Last Done Comments [...] topic Medical Devices Not on file Insurance [employer] [facility] MEDICARE REPLACEMENT [facility] [place]ICARE RE[place] [facility] MED[place]ARE RE[place] [facility] MED[place]ARE [place] [facility] MEDICARE REPLACEMENT Care Teams Gifted Teacher Relationship Specialty Start Date End Date Monica Dunaway MD [address] [place] [phone] PCP - General Internal Medicine 04/08/23 Additional Source Comments The information contained in this document represents components of the legal health record. It is not the complete legal health record.[facility]
--- OUTSIDE RECORDS SUMMARY | 2025-02-10 13:11 | XMS_ITS | Encounter Summary ---
Author Organization [employer] Address [address] [facility] 7t [place] [address] Care Team Providers Care Administrative Assistant Receptionist Name Role Phone Monica Francis MD Primary Care Provide r Abelino Devine PharmD Unavailable [phone] Encounter Details Date Type Department Care Team ([facility] st Contact Info) Description 01/04/[address] [facility] MEDICINE 230 [place], [place] [phone] Monica Francis MD [address] [place], [place] [phone] Social History Tobacco Use Types Packs/Day Years [...] Care Team (Late st Contact Info) Description 03/09/2025 1:45 PM EST Office Visit [facility] MEDICINE [address] [place] [phone] Monica Francis MD [address] [place] [address] 04/27/2025 9:30 AM EDT Medication Management [facility] MED[facility]INE [address] [place] [address] Abelino Devine, PharmD [address] [place] [address] 50641 documented as of this encounter Goals Goal Patient Goal Type Associated Problems Recent Progress Patient-Stated? Author Help patients manage their type 2 diabetes Care Plan Help patients manage their type 2 diabetes Jai Gandara Weekly blood pressure task Care Plan Weekly blood pressure task No Jai Espino Help patients manage their type 2 diabetes Care Plan Help patients manage their type 2 diabetes Jai Gandara Patient has chronic kidney disease Care Plan Patient has chronic kidney disease No Jai Espino Weekly blood pressure task Care Plan Weekly blood pressure task No Srinivas Tobinloripatricio Patient has chronic kidney disease Care Plan Patient has chronic kidney disease No Jai Espino Weekly blood pressure task Care Plan Weekly blood pressure task No Srinivas Tobinleisa Weekly blood pressure task Care Plan Weekly blood pressure task No Srinivas Tobinloripatricio Patient has chronic kidney disease Care Plan Patient has chronic kidney disease No Jai Espino Patient has chronic kidney disease Care Plan Patient has chronic kidney disease No Jai Espino documented as of this encounter Visit Diagnoses Not on filedocumented in this encounter Additional Health Concerns Active Problems Noted Date Diagnosed Date Help patients manage their type 2 diabetes 01/04 Weekly blood pressure task 01/04/2025 Help patients manage their type 2 diabetes 01/04 Patient has chronic kidney disease 01/04/2025 Weekly blood pressure task 01/04/2025 Patient has chronic kidney disease 01/04/2025 Weekly blood pressure task 01/04/2025 Weekly blood pressure task 01/04/2025 Patient has chronic kidney disease 01/04/2025 Patient has chronic kidney disease 01/04/2025 Assessment Noted Time PHQ-9 Depression Total Score: 0 07/28/19 24 10:07 AM EDT documented as of this encounter Care Teams Administrative Assistant Receptionist Relationship Specialty Start Date End Date Monica Francis MD [address] [place] [address] PCP - General Family Medicine 10/28/17 Abelino Devine, Wilber [address] [place] [address] Pharmacist Internal Medicine 05/03/24 documented as of this encounter
--- OUTSIDE RECORDS SUMMARY | 2025-02-10 13:11 | XMS_ITS | Encounter Summary ---
Author Organization [email or web address] Address [address] [facility] 7t [place] [address] Care Team Providers Care International Controller Name Role Phone Monica Francis MD Primary Care Provide r Abelino Devine PharmD Unavailable [phone] Encounter Details Date Type Department Care Team (Late st Contact Info) Description 03/31/2022 Orders Only [facility] MEDICINE [address] [place] [address] Anastasiya Torrez DO 230 [place], [place] [phone] Social History Tobacco Use Types Packs/Day Years [...] Description 03/09/2025 1:45 PM EST Office Visit [facility] MEDICINE [address] [place] [address] [phone] Monica Francis MD 230 [place], [place] [phone] 04/27/2025 9:30 AM EDT Medication Management [facility] MEDICINE [address] [place] [address] [phone] Abelino Devine, PharmD [address] [place] [address] [phone] documented as of this encounter Visit Diagnoses Not on filedocumented in this encounter Care Teams International Controller Relationship Specialty Start Date End Date Monica Francis MD [address] [place] [address] PCP - General Family Medicine 10/28/17 Abelino Devine, RobbieD [address] [place] [address] Pharmacist Internal Medicine 05/03/24 documented as of this encounter
--- OUTSIDE RECORDS SUMMARY | 2025-02-10 13:11 | XMS_ITS | Encounter Summary ---
Author Organization [employer] Address [address] [facility] 7t [place] [address] Care Team Providers Care Wireline Operator Name Role Phone Monica Francis MD Primary Care Provide r Abelino Devine PharmD Unavailable [phone] Encounter Details Date Type Department Care Team ([facility] st Contact Info) Description 03/05/2023 Telephone [facility] MEDICINE 230 [place], [place] [phone] Monica Francis MD 230 [place], [place] [phone] Social History Tobacco Use Types Packs/Day Years [...] Description 03/09/2025 1:45 PM EST Office Visit [facility] MEDICINE [address] [place] [phone] Monica Francis MD [address] [place] [address] 04/27/2025 9:30 AM EDT Medication Management [facility] MEDICINE [address] [place] [address] Abelino Devine, PharmD [address] [place] [address] documented as of this encounter Visit Diagnoses Not on filedocumented in this encounter Care Teams Wireline Operator Relationship Specialty Start Date End Date Monica Francis MD [address] [place] [address] [phone] PCP - General Family Medicine 10/28/17 Abelino Devine, PharmD [address] [place] [address] 35049 Pharmacist Internal Medicine 05/03/24 documented as of this encounter
--- OUTSIDE RECORDS SUMMARY | 2025-02-10 13:11 | XMS_ITS | Encounter Summary ---
Author Organization [employer] Address [address] [facility] 7t [place] [address] Care Team Providers Care Administrative Office Clerk Name Role Phone Monica Francis MD Primary Care Provide r Abelino Devine PharmD Unavailable [phone] Reason for Visit * Reason Comments Med Refill Encounter Details Date Type Department Care Team (Late st Contact Info) Description 09/12/2024 Refill [facility] MEDICINE 230 [place], [place] [phone] Monica Francis MD [address] [place], [place] [phone] Type 2 diabetes mellitus with hyperglycemia, without long-term current use of insulin ([facility]) Social History Tobacco Use Types Packs/Day Years [...] Description 03/09/2025 1:45 PM EST Office Visit [facility] MEDICINE [address] [place] [phone] Monica Francis MD [address] [place] [address] 768[address] 04/27/2025 9:30 AM EDT Medication Management [facility] MED[facility]INE [address] [place] [phone] Abelino Devine, PharmD [address] [place] [address] [phone] documented as of this encounter Visit Diagnoses Diagnosis Type 2 diabetes mellitus with hyperglycemia, without long-term current use of insulin (HCC) documented in this encounter Additional Health Concerns Assessment Noted Time PHQ-9 Depression Total Score: 0 07/28/19 24 10:07 AM EDT documented as of this encounter Care Teams Administrative Office Clerk Relationship Specialty Start Date End Date Monica Francis MD [address] [place], [place] [phone] PCP - General Family Medicine 10/28/17 Abelino Devine, Wilber [address] [place] [address] Pharmacist Internal Medicine 05/03/24 documented as of this encounter
--- OUTSIDE RECORDS SUMMARY | 2025-02-10 13:11 | XMS_ITS | Clinical Summary ---
Author Organization [employer] Address [address] [facility] [place] [address] [place] [address] Care Team Providers Care Line Assembly Utility Worker Name Role Phone Monica Francis MD Primary Care Provide r Abelino Devine PharmD Unavailable [phone] Allergies Active Allergy Reactions Criticality Noted Date [...] CAUSE DROWSINESS 30 capsule 2 025 Active glucose blood (Accu-Chek Guide Test) test stripIndications: Type 2 diabetes mellitus with hyperglycemia, without long-term current use of insulin ([facility]) Use to check blood sugar twice daily 100 each 11 5 10:31 AM EST 025 2025 Active Lancet Devices (Lancing Device) miscIndications:T ype 2 diabetes mellitus with hyperglycemia, without long-term current use of insulin ([facility]) Use to test blood sugar 1 each 025 Active Lancets 33G miscIndications:T ype 2 diabetes mellitus with hyperglycemia, without long-term current use of insulin ([facility]) Use to check blood sugar twice daily 100 each 5 025 Active lisinopril 10 MG tabletIndications :Primary hypertension Take 1 tablet (10 mg) by mouth Once per day. 30 tablet 11 5 9:29 AM EST 025 2025 Active Blood Glucose Monitoring Suppl (Accu-Chek Guide) w/Device kitIndications:Ty pe 2 diabetes mellitus with hyperglycemia, without long-term current use of insulin ([facility]) Use to check blood sugar 2 times daily as directed 1 kit 5 9:48 AM EST 025 Active simvastatin (Zocor) 20 MG tabletIndications :Combined hyperlipidemia TAKE 1 TABLET BY MOUTH EVERY DAY IN THE EVENING 90 tablet 1 025 Active insulin glargine (Lantus) 100 UNIT/ML injectionIndicati ons:Type 2 diabetes mellitus with hyperglycemia, without long-term current use of insulin ([facility]) Inject 24 Units under the skin at bedtime. 10 mL 5 025 Active glipiZIDE XL (Glucotrol XL) 10 MG 24 hr tabletIndications :Type 2 diabetes mellitus with hyperglycemia, without long-term current use of insulin ([facility]) TAKE 1 TABLET BY MOUTH TWICE DAILY 180 tablet 1 Active simvastatin (Zocor) 20 MG tabletIndications :Combined hyperlipidemia TAKE 1 TABLET BY MOUTH EVERY DAY IN THE EVENING 90 tablet 1 025 2024 Discontinued glipiZIDE XL (Glucotrol XL) 10 MG 24 hr tabletIndications :Type 2 diabetes mellitus with hyperglycemia, without long-term current use of insulin (HCC) TAKE 1 TABLET BY MOUTH TWICE DAILY 180 tablet 1 025 2024 Discontinued insulin glargine (Lantus) 100 UNIT/ML injectionIndicati ons:Type 2 diabetes mellitus with hyperglycemia, without long-term current use of insulin ([facility]) Inject 22 Units under the skin at bedtime. 025 2024 Discontinued(R eorder (will not trigger [...] 11/20/2023. She should get this done at [facility]. Weight loss 04/28/2023 Assessment & Plan [...] asthma 05/21/2022 Hypertension 01/29/2012 Assessment & Plan (12/12/2024 12:27 PM EDT): Advised: - Aerobic exercise to reduce BP. Initial [...] consulting health care provider Assessment & Plan (05/11/2024 2:22 PM EDT): [...] <110 PP not at goal <180 Called [facility] pharmacy, they are able to get Trulicty for patient at 3mg weekly dosing, order placed Also replaced Freestyle Lite so that patient can check her blood sugars as she has been, twice a day Wants to followup with her PCP for ongoing DM2 mgmt, appointment made for June Date Type Department Care Team Description 02/02/2025 Refill [facility] [address] [place] [address] Monica Francis MD Type 2 diabetes mellitus with hyperglycemia, without long-term current use of insulin (HCC) 01/30/2025 Orders Only [facility] [address] [place] [address] Monica Francis MD Type 2 diabetes mellitus with hyperglycemia, without long-term current use of insulin (HCC) (Primary Dx) 01/30/2025 Telephone [facility] [address] [place] [address] Monica Francis MD 01/27/2025 Travel 01/15/2025 Refill [facility] [address] [place] [address] Monica Francis MD Combined hyperlipidemia 01/04/2025 Refill [facility] [address] [place] [phone] Monica Francis MD Type 2 diabetes mellitus with hyperglycemia, without long-term current use of insulin (HCC) 01/04/[address] [address] Monica Francis MD 01/02/2025 Orders Only [facility] External Provider, [facility] 12/12/2024 11:30 AM EDT Office Visit [address] [address] Monica Francis MD Hyperlipidemia, unspecified hyperlipidemia type (Primary Dx); Type 2 diabetes mellitus with hyperglycemia, without long-term current use of insulin (HCC); Primary hypertension 12/12/2024 Travel 12/09/[address] [address] Monica Francis MD Chart Prep 11/25/2024 Travel 11/17/2024 1:00 PM EDT Office Visit [facility] [address] [place] [phone] Africa Thrasher FNP Primary hypertension (Primary Dx) 11/17/2024 Travel 11/15/2024 Results Follow-Up [facility] [address] [place] [address] Lesley Mathews MD POCT glucose manually resulted, Sed Rate by Modified Westergren, C-reactive Protein 11/11/2024 Travel from Last 3 Months Immunizations Immunization [...] Sign Reading Time Taken Comments Blood Pressure 118/58 01/27/2025 9:58 AM EST Pulse 76 01/27/2025 9:58 AM EST Temperature 35 C (95 F) 12/12/2024 11:32 AM EDT Respiratory Rate 13 12/12/2024 11:3 2 AM EDT Oxygen Saturation 98% 12/12/2024 11: 32 AM EDT Inhaled Oxygen Concentration - - Weight 55.2 kg (121 lb 12.8 oz) 025 11:32 AM EDT Height 157.5 cm (5' 2 ) 12/12/2024 11:3 2 AM EDT Body Mass Index 22.28 12/12/2024 11:32 AM EDT Plan of Treatment Upcoming Encounters Date Type Department Care Team (Late st Contact Info) Description 03/09/2025 1:45 PM EST Office Visit [facility] [address] [place] [phone] Monica Francis MD [address] [place] [phone] 04/27/2025 9:30 AM EDT Medication Management [address] [address] Abelino Devine, PharmD [address] [place] [phone] Health Maintenance Due Date Last Done Comments CT Colonography 1955 Colonoscopy 1957 Colorectal Cancer Screening 1955 Dental X-Ray: Full Mouth 1957 FIT DNA/Cologuard 1957 FIT 1957 FOBT 1955 Sigmoidoscopy 1955 Eye Exam 08/26/1967 Alcohol/Substance Use Screening 1969 Hepatitis B Vaccines (2 of 3 - 19+ 3-dose series) 11/20/2011 10/23/2011 Dental Oral Exam 11/07/2023 05/06/2023, 05/01/2022 Dental Prophylaxis 11/07/2023 05/06/2023, 05/01/2022 Depression Screening 07/27/2024 07/28/2023, 07/28/19 Diabetes: Urine Protein Screening 07/27/2024 07/28/2023, 07/02/2022, 04/20/2021, Additional history exists Dental X-Ray: Bitewings 08/14/2024 08/14/19 24, 05/06/2023, 05/01/2022 Lipid Panel 11/09/2024 11/10/2023, 06/16, 04/20/2021, Additional history exists Mammogram 01/11/2025 01/12/2024, 12/18, 01/06/2023, Additional history exists Diabetes: Hemoglobin A1C 03/14/2025 025, 09/12/2024, 05/11/2024, Additional history exists SDOH Screening 05/02/2025 05/02/2024 COVID-19 Vaccine ( season) 2025 11/25/2024, 11/06/2023, 11/17/2022, Additional history exists Diabetes: Foot Exam 12/12/2025 12/12/2024, 12/12/2024, 06/25/2022, Additional history exists Tobacco Screening 12/12/2025 12/12/2024 HPV/Cotest 11/08/2026 11/08/2021, 10/28/2016 Pap Smear 11/08/2026 11/08/2021 DTaP/Tdap/Td Vaccines (3 - Td or Tdap) 06/17/2034 06/17/2024, 10/23/2011, 11/27/2009 RSV Patients and Patients Aged 60 years or older Completed 11/16/2022 Pneumococcal Vaccine: 50+ Years Completed 12/24/2022, 11/16/2006 Hepatitis C Screening Completed 04/29/2023 Zoster Vaccines Completed 09/12/2024, 03/2024, 10/01/2012 Influenza Vaccine Completed 11/11/2024, , [...] on patient's age to complete this topic Goals Goal Patient Goal Type Associated Problems Recent Progress Patient-Stated? Author Help patients manage their type 2 diabetes Care Plan Help patients manage their type 2 diabetes No Jai Espino Weekly blood pressure task Care Plan Weekly blood pressure task No Jai Espino Help patients manage their type 2 diabetes Care Plan Help patients manage their type 2 diabetes No Jai Espino Patient has chronic kidney disease Care Plan Patient has chronic kidney disease No Jai Espino Weekly blood pressure task Care Plan Weekly blood pressure task No Jai Espino Patient has chronic kidney disease Care Plan Patient has chronic kidney disease No Jai Espino Weekly blood pressure task Care Plan Weekly blood pressure task No Jai Espino Weekly blood pressure task Care Plan Weekly blood pressure task No Jai Espino Patient has chronic kidney disease Care Plan Patient has chronic kidney disease No Jai Espino Patient has chronic kidney disease Care Plan Patient has chronic kidney disease No Jai Espino Weekly blood pressure task Care Plan Weekly blood pressure task No Abelino Devine, PharmD Weekly blood pressure task Care Plan Weekly blood pressure task No Abelino Devine PharmD Patient has chronic kidney disease Care Plan Patient has chronic kidney disease No Abelino Devine PharmD Patient has chronic kidney disease Care Plan Patient has chronic kidney disease No Abelino Devine PharmD Weekly blood pressure task Care Plan Weekly blood pressure task No Bobby Espino Weekly blood pressure task Care Plan Weekly blood pressure task No Bobby Espino Patient has chronic kidney disease Care Plan Patient has chronic kidney disease No Bobby Espino Patient has chronic kidney disease Care Plan Patient has chronic kidney disease No Bobby Espino Weekly blood pressure task Care Plan Weekly blood pressure task No Monica Francis MD Weekly blood pressure task Care Plan Weekly blood pressure task No Monica Francis MD Patient has chronic kidney disease Care Plan Patient has chronic kidney disease No Monica Francis MD Patient has chronic kidney disease Care Plan Patient has chronic kidney disease No Monica Francis MD Procedures Procedure Name Priority Date/Time Associated Diagnosis Comments US THYROID Routine 01/02/2025 4:08 PM EST POCT GLYCATED HEMOGLOBIN, TOTAL Routine 12/12/2024 11:33 AM EDT Type 2 diabetes mellitus with hyperglycemia, without long-term current use of insulin ([facility]) POCT GLUCOSE (CPT-06842) Routine 12/12/2024 11:33 AM EDT Type 2 diabetes mellitus with hyperglycemia, without long-term current use of insulin ([facility]) BASIC METABOLIC PANEL Routine 12/01/2024 8:54 AM EDT Primary hypertension C-REACTIVE PROTEIN Routine 11/14/2024 8: 50 AM EDT Type 2 diabetes mellitus with hyperglycemia, without long-term current use of insulin ([facility]) SED RATE BY MODIFIED WESTERGREN Routine 11/14/2024 [...] Recently Relevant to Health Maintenance Results * US Thyroid (01/02/2025 4:08 PM EST) Anatomical Region Laterality Modality Head, Neck Ultrasound 01/02/2025 4:08 PM EST Narrative 01/03/2025 7:07 AM EST [place] [address] Ultrasound Report Signed Patient: Cony Saez MR#: [id number] 2 : 1955 Acct:[id number] Age/Sex: 69 / F ADM Date: 01/02/25 Loc: HO.US Attending Dr: Trace Haas DO, MD Ordering Physician: TRACE HAAS DO Date of Service: 01/02/25 Procedure(s): US thyroid Accession Number(s): [id number] cc: Monica Francis MD; TRACE HAAS DO Reason for Exam: NONTOXIC MULTINODULAR GOITER EXAMINATION: US THYROID CLINICAL INFORMATION: Nontoxic multinodular goiter. COMPARISON: December 16, 2023 TECHNIQUE: Linear transducer grayscale and color Doppler examination with attention to the region of the thyroid. FINDINGS: SIZE: Measurements of the thyroid lobes and nodules are given in sagittal, anteroposterior and transverse dimensions respectively. Right Thyroid Lobe: 5.2 x 1.0 x 1.7 cm, volume 4.6 mL. Previous: 5.2 x 1.0 x 1.8 cm, volume: 4.7 cc. Parenchyma: The gland echotexture is heterogeneous. Thyroid vascularity is normal. Left Thyroid Lobe: 4.3 x 1.2 x 1.3 cm, volume 3.6 mL. Previous: 4.6 x 1.1 x 1.6 cm, volume: 4.2 cc. Parenchyma: The gland echotexture is heterogeneous. Thyroid vascularity is normal. Isthmus: 0.3 cm in maximum AP dimension. Previous: 0.3 cm Estimated total number of nodules greater than or equal to 1 cm: 0. Turbine Inspector nodules are described as follows: 1. Location: Midportion, right lobe. Size: 0.3 x 0.2 x 0.3 cm, volume 0.007 mL. Previous: 0.3 x 0.2 x 0.3 cm, volume: 0.009 cc. Nodule characteristics: Composition: Solid (2). Echogenicity: Very hypoechoic (3). Shape: Not taller than wide (0). Margins: Smooth (0). Echogenic Foci: None (0). ACR TI-RADS total points: 5 ACR TI-RADS category: 4 2. Location: Lower pole right lobe. Size: 0.5 x 0.5 x 0.5 cm, volume 0.07 mL. Previous: 0.7 x 0.4 x 0.5 cm. Nodule characteristics: Composition: Solid (2). Echogenicity: Hypoechoic (2). Shape: Not taller than wide (0). Margins: Smooth (0). Echogenic Foci: None (0). ACR TI-RADS total points: 4 ACR TI-RADS category: 4 3. Location: Upper pole, left lobe. Size: 0.6 x 0.4 x 0.8 cm, volume 0.1 mL. Previous: 0.7 x 0.4 x 0.6 cm, volume: 0.09 cc. Nodule characteristics: Composition: Solid (2). Echogenicity: Hypoechoic (2). Shape: Not taller than wide (0). Margins: Ill-defined (0). Echogenic Foci: None (0). ACR TI-RADS total points: 4 ACR TI-RADS category: 4 NODES: No lymphadenopathy is seen in the tissue surrounding the thyroid gland. US/US thyroid IMPRESSION: ACR TI RADS category 4. ACR TI-RADS RECOMMENDATION REFERENCE: Ultrasound-guided fine-needle aspiration, followup ultrasound, no further follow up. * TR1 (0 point) and TR2 (2 points): No FNA or follow up. * TR3 (3 points): FNA if more than or equal to 2.5 cm in maximum dimension, followup ultrasound in 1, 3 and 5 years if 1.5 to 2.4 cm in maximum dimension. * TR4 (4-6 points): FNA if more than or equal to 1.5 cm in maximum dimension, followup ultrasound in 1, 2, 3 and 5 years if 1 to 1.4 cm in maximum dimension. * TR5 (more than or equal to 7 points): FNA if more than or equal to 1 cm in maximum dimension, followup ultrasound every year for 5 years if 0.5 to 0.9 cm in maximum dimension. * TR3, TR4 or TR5 nodules that are below the size threshold for followup receive no follow up. Electronically signed by: Yaw Michelle MD 01/03/2025 07:04 AM EST Dictated By: Yaw Mohr MD Signed By: <Electronically signed by Yaw Cullen MD in OV> 01/03/25 0704 DD/ 1608 TD/TT: 01/02/25 1617 Nail Artist: Procedure Note Donotuseinterpreter, Image - 01/03/[address] [address] Ultrasound Report Signed Patient: Blank Saez#: [id number] 2 : 8Acct:[id number] Age/Sex: 69 / FADM Date: 01/02/25 Loc: HO.US Attending Dr: Trace Haas DO, MD Ordering Physician: TRACE HAAS DO Date of Service: 01/02/25 Procedure(s): US thyroid Accession Number(s): [id number] cc: Monica Francis MD; TRACE HAAS DO Reason for Exam: NONTOXIC MULTINODULAR GOITER EXAMINATION: US THYROID CLINICAL INFORMATION: Nontoxic multinodular goiter. COMPARISON: December 16, 2023 TECHNIQUE: Linear transducer grayscale and color Doppler examination with attention to the region of the thyroid. FINDINGS: SIZE: Measurements of the thyroid lobes and nodules are given in sagittal, anteroposterior and transverse dimensions respectively. Right Thyroid Lobe: 5.2 x 1.0 x 1.7 cm, volume 4.6 mL. Previous: 5.2 x 1.0 x 1.8 cm, volume: 4.7 cc. Parenchyma: The gland echotexture is heterogeneous. Thyroid vascularity is normal. Left Thyroid Lobe: 4.3 x 1.2 x 1.3 cm, volume 3.6 mL. Previous: 4.6 x 1.1 x 1.6 cm, volume: 4.2 cc. Parenchyma: The gland echotexture is heterogeneous. Thyroid vascularity is normal. Isthmus: 0.3 cm in maximum AP dimension. Previous: 0.3 cm Estimated total number of nodules greater than or equal to 1 cm: 0. Turbine Inspector nodules are described as follows: 1. Location: Midportion, right lobe. Size: 0.3 x 0.2 x 0.3 cm, volume 0.007 mL. Previous: 0.3 x 0.2 x 0.3 cm, volume: 0.009 cc. Nodule characteristics: Composition: Solid (2). Echogenicity: Very hypoechoic (3). Shape: Not taller than wide (0). Margins: Smooth (0). Echogenic Foci: None (0). ACR TI-RADS total points: 5 ACR TI-RADS category: 4 2. Location: Lower pole right lobe. Size: 0.5 x 0.5 x 0.5 cm, volume 0.07 mL. Previous: 0.7 x 0.4 x 0.5 cm. Nodule characteristics: Composition: Solid (2). Echogenicity: Hypoechoic (2). Shape: Not taller than wide (0). Margins: Smooth (0). Echogenic Foci: None (0). ACR TI-RADS total points: 4 ACR TI-RADS category: 4 3. Location: Upper pole, left lobe. Size: 0.6 x 0.4 x 0.8 cm, volume 0.1 mL. Previous: 0.7 x 0.4 x 0.6 cm, volume: 0.09 cc. Nodule characteristics: Composition: Solid (2). Echogenicity: Hypoechoic (2). Shape: Not taller than wide (0). Margins: Ill-defined (0). Echogenic Foci: None (0). ACR TI-RADS total points: 4 ACR TI-RADS category: 4 NODES: No lymphadenopathy is seen in the tissue surrounding the thyroid gland. US/US thyroid IMPRESSION: ACR TI RADS category 4. ACR TI-RADS RECOMMENDATION REFERENCE: Ultrasound-guided fine-needle aspiration, followup ultrasound, no further follow up. * TR1 (0 point) and TR2 (2 points): No FNA or follow up. * TR3 (3 points): FNA if more than or equal to 2.5 cm in maximum dimension, followup ultrasound in 1, 3 and 5 years if 1.5 to 2.4 cm in maximum dimension. * TR4 (4-6 points): FNA if more than or equal to 1.5 cm in maximum dimension, followup ultrasound in 1, 2, 3 and 5 years if 1 to 1.4 cm in maximum dimension. * TR5 (more than or equal to 7 points): FNA if more than or equal to 1 cm in maximum dimension, followup ultrasound every year for 5 years if 0.5 to 0.9 cm in maximum dimension. * TR3, TR4 or TR5 nodules that are below the size threshold for followup receive no follow up. Electronically signed by: Yaw Michelle MD 01/03/2025 07:04 AM EST Dictated By: Yaw Mohr MD Signed By: <Electronically signed by Yaw Cullen MDin OV> 01/03/25 0704 DD/ 1608 TD/TT: 01/02/25 1617 Nail Artist: [facility] External Provider IMG US PROCEDURES Final Result * (ABNORMAL) POCT Hgb A1c (12/12/2024 11:33 AM EDT) [facility] Hemoglobin A1C 7.5(A) 4.0 - 5.7 % QC Media Lot # [id number] Lot# Expiration Date 51,227 Blood 12/12/2024 11:3 3 AM EDT Result [facility] Monica Briceno MD POINT OF CARE TEST EN TER/EDIT ORDERABLES Final Result * (ABNORMAL) POCT Glucose (12/12/2024 11:33 AM EDT) [facility] Glucose Blood, POC 209(A) 60 - 200 mg/dL QC Media Lot # [id number] Lot# Expiration Date 31,126 Blood Capillary blood specimen / Unknown 12/12/2024 11:33 AM EDT Result [facility] Monica Briceno MD POINT OF CARE TEST EN TER/EDIT ORDERABLES Final Result * (ABNORMAL) Basic Metabolic Panel (12/01/2024 8:54 AM EDT) [facility] Sodium 141 135 - 145 mmol/L [facility] Potassium 4.1 3.3 - 5.1 mmol/L [facility] Chloride 108 96 - 108 mmol/L [facility] Carbon Dioxide 24 22 - 29 mmol/L [facility] Anion Gap 13 12 - 20 [facility] Urea Nitrogen (BUN) 14 9 - 16 mg/dL [facility] Creatinine, Serum 0.71 0.5 - 1.4 mg/dL [facility] Estimated Glomerular Filt Rate >60 [facility] Comment:Chronic Kidney Disea se: Estimated GFR < 60 mL/min/1.63s4Ghjbkh Kidney Disease: Estimated GFR < 15 mL/min/1.73m2 Glucose 179(H) 60 - 115 mg/dL [facility] Calcium 9.3 8.4 - 10.2 mg/dL [facility] Blood Venous blood specimen / Unknown 12/01/2024 8:54 AM EDT 12/01/2024 10:58 AM EDT us Africa Thrasher TECHNICAL REP LAB BLOOD ORDERABLES Final Res ult Performing Organization Address [facility] Co de Phone Number [facility] [address] [place] [phone] * (ABNORMAL) Sed Rate by Modified Westergren (11/14/2024 8:50 AM EDT) Erythrocyte Sedimentation Rate 22(H) 0 - 20 MM/HR [facility] Comment:Patients with polycy themia and many hemoglobin abnormalitiesmay have depressed sed rates whereas patients with anemiamay have elevated sed rates. Blood Venous blood specimen / Unknown 11/14/2024 8:50 AM EDT 11/14/2024 11:13 AM EDT us Lesley Mathews MD LAB BLOOD ORDERABLES Final Re sult Performing Organization Address [facility] Co de Phone Number [facility] [address] [place] [phone] * (ABNORMAL) C-reactive Protein (11/14/2024 8:50 AM EDT) C Reactive Protein 1.59(H) < or = 0.50 mg/dL [facility] Blood Venous blood specimen / Unknown 11/14/2024 8:50 AM EDT 11/14/2024 11:13 AM EDT us Lesley Mathews MD LAB BLOOD ORDERABLES Final Re sult Performing Organization Address [facility] Co de Phone Number [facility] [address] [place] [phone] * BI Mammogram Diagnostic Tomosynthesis Bilateral (01/12/2024 10:55 AM EST) Anatomical Region Laterality Modality Breast Bilateral Mammography 01/12/2024 10:5 5 AM EST Narrative 01/12/2024 11:48 AM EST [facility] [address] [place] [address] [place] [address] Mammography Report Signed Patient: Cony Saez MR#: [id number] 2 : 1955 Acct:[id number] Age/Sex: 68 / F ADM Date: 01/12/24 Loc: HO.MAMMO Attending Dr: Monica Briceno MD Ordering Physician: Monica Francis MD Results: 2Benign Findings Date of Service: 01/12/24 Follow Up: 1 Year From Orig ina Mammogram Procedure(s): MM tomosynthesis diagnostic BI Accession Number(s): [id number] cc: Monica Francis MD EXAMINATION: MM DIAGNOSTIC [...] by: Patrick Holt MD 01/12/2024 11:44 AM [facility] Dictated By: Patrick Holt MD Signed By: <Electronically signed by Patrick Holt MD in OV> 01/12/24 1144 DD/ 1055 TD/TT: 01/12/24 1117 Nail Artist: Procedure Note Donotuseinterpreter, Image - 01/12/2024 [facility] [address] [place] [address] Mammography Report Signed Patient: Blank Saez#: [id number] 2 : 8Acct:[id number] Age/Sex: 68 / FADM Date: 01/12/24 Loc: HO.MAMMO Attending Dr: Monica Briceno MD Ordering Physician: Monica Francis MDResults: 2Benign Findings Date of Service: 01/12/24Follow Up: 1 Year From Orig ina Mammogram Procedure(s): MM tomosynthesis diagnostic BI Accession Number(s): [id number] cc: Monica Francis MD EXAMINATION: MM DIAGNOSTIC [...] MD Signed By: <Electronically signed by Patrick Hotl MD in OV> 01/12/24 1144 DD/ 1055 TD/TT: 01/12/24 1117 Nail Artist: us Monica Briceno MD IMG BI PROCEDURES Fin al Result * (ABNORMAL) Lipid Panel with Reflex to Direct LDL (11/10/2023 9:37 AM EDT) Triglycerides 160(H) <150 mg/dL [facility] Comment:Desirable Triglyceri de: less than 150 mg/dLBorderline High Triglyceride 150-199 mg/dLHigh Triglyceride: 200-499 mg/dLVery High Triglyceride: greater than or equal to 5OO mg/dL Cholesterol 163 <200 mg/dL [facility] Comment:Desirable Cholestero l: less than 200 mg/dLBorderline High Cholesterol: 200-239 mg/dLHigh Cholesterol: greater than 239 mg/dL LDL Cholesterol Calculated 84 <100 mg/dL [facility] Comment:Desirable LDL: less than 100 mg/dLNear Optimal/Above Optimal LDL: 110- 129 mg/dLBorderline High LDL: 130-159 mg/dLHigh LDL: 160-189 mg/dLVery High LDL: greater than or equal to 190 mg/dL HDL Cholesterol 47 >40 mg/dL [facility] Comment:Desirable HDL: great er than 40 mg/dL Note: This HDL assay may give artificially low results in patients with liver disease. Blood 11/10/2023 9:37 AM EDT 11/10/2023 11:20 AM EDT us Monica Briceno MD LAB BLOOD ORDERABLES Final Result Performing Organization Address [facility]/ZIP Co de Phone Number [facility] [address] [place] [phone] * Albumin, Random Urine W/Creatinine (07/28/2023 10:18 AM EDT) Creatinine, Urine 40.48 mg/dL [facility] Microalbumin Urine <5.0 mg/L [facility] Microalbum Creatinine Ratio Ur TNP <30 ug/mg cr [facility] Comment:Unable to calculate albumin/creatinine ratio due to lowmicroalbumin or creatinine result. 07/28/2023 10:1 8 AM EDT 07/28/2023 11:14 AM EDT us Monica Briceno MD LAB URINE ORDERABLES Final Result Performing Organization Address [facility] Co de Phone Number [facility] [address] [place] [phone] * Hepatitis C Antibody with Reflex to HCV, RNA, Quantitative, Real-Time PCR (04/29/2023 8:53 AM EDT) Hepatitis C Antibody Nonreactive Nonreactive [facility] Comment:Antibodies to HCV no t detected; does not exclude early acuteHCV infection. Blood Venous blood specimen / Unknown 04/29/2023 8:53 AM EDT 04/29/2023 11:14 AM EDT Monica Briceno MD LAB BLOOD ORDERABLES Final Result Performing Organization Address City/[facility] Co de Phone Number [facility] [address] [place] [address] [phone] * THINPREP TIS PAP AND HPV mRNA E6/E7 WITH REFLEX TO HPV 16,18/45 (11/08/2021 12:00 AM EDT) Clinical Information: None given [facility] COMMENT SEE COMMENT [facility] [...] along with historic and current clinical information. Comment: This Pap test has been evaluated with computer assisted technology. [facility] Cytotechnologis t: SEE COMMENT [facility] Comment: JUSTICE, CT(ASCP) CT screening location: [address] [address] HPV nRNA E6/E7 Not Detected Not Detected [facility] Comment: Methodology: Assistant Professor Of Geography-Mediated Amplification This assay detects E6/E7 viral messenger RNA (mRNA) from 14 high-risk HPV types (16,18,31,33,35,39,45,51,52,56,58,59,66,68). Cervical sources are required for HPV testing. If a vaginal source from a patient who has had a total hysterectomy with removal of cervix was submitted, please contact the testing laboratory for alternative testing options. 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 [facility] Interpretation/ Result: Negative for intraepithelial lesion or malignancy. [facility] LMP: NONE [facility] Prev. BX: NONE [facility] Prev. PAP: NONE [facility] SOURCE: None given [facility] Statement Of Adequacy: SEE COMMENT [facility] Comment: Satisfactory for evaluation. Endocervical/transformation zone component present. 11/08/2021 Monica Briceno MD LAB PATHOLOGY ORDERAB LES Final Result [facility] [address] from Last 3 Months or Most Recently Relevant to Health Maintenance Additional Health Concerns Active Problems Noted Date [...] kidney disease 01/04/2025 Weekly blood pressure task 01/27/2025 Weekly blood pressure task 01/27/2025 Patient has chronic kidney disease 01/27/2025 Patient has chronic kidney disease 01/27/2025 Weekly blood pressure task 01/30/2025 Weekly blood pressure task 01/30/2025 Patient has chronic kidney disease 01/30/2025 Patient has chronic kidney disease 01/30/2025 Weekly blood pressure task 01/30/2025 Weekly blood pressure task 01/30/2025 Patient has chronic kidney disease 01/30/2025 Patient has chronic kidney disease 01/30/2025 Insurance [facility] MEDIC[facility] ADVANTAGE HMO DENTAL - [facility] Care Teams Line Assembly Utility Worker Relationship Specialty Start Date End Date Monica Francis MD [address] [place], [place] PCP - General Family Medicine 10/28/17 Abelino Devine, RobbieD [address] [place], [place] Pharmacist Internal Medicine 05/03/24
--- OUTSIDE RECORDS SUMMARY | 2025-02-10 13:11 | XMS_ITS | Encounter Summary ---
Author Organization [employer] Address [address] [facility] 7[address] [place] [address] Care Team Providers Care Manager Research Name Role Phone Monica Francis MD Primary Care Provide r Abelino Devine PharmD Unavailable [phone] Reason for Visit * Reason Comments Med Refill Encounter Details Date Type Department Care Team (Late st Contact Info) Description 01/28/2023 Refill [facility] [address] [place] [address] Moinca Francis MD [address] [place], [place] [phone] Type 2 diabetes mellitus without complication, without long-term current use of insulin ([facility]) Social History Tobacco Use Types Packs/Day Years [...] Description 03/09/2025 1:45 PM EST Office Visit [facility] [address] [place] [phone] Monica Francis MD [address] [place] [phone] 04/27/2025 9:30 AM EDT Medication Management [facility] [address] [place] [phone] Abelino Devine PharmD [address] [place] [phone] documented as of this encounter Visit Diagnoses Diagnosis Type 2 diabetes mellitus without complication, without long-term current use of insulin (HCC) documented in this encounter Care Teams Manager Research Relationship Specialty Start Date End Date Monica Francis MD [address] [place] [address] [phone] PCP - General Family Medicine 10/28/17 Abelino Devien, PharmD [address] [place] [address] [phone] Pharmacist Internal Medicine 05/03/24 documented as of this encounter
--- OUTSIDE RECORDS SUMMARY | 2025-02-10 13:11 | XMS_ITS | Encounter Summary ---
Author Organization [employer] Address [address] [facility] 7t [place] [address] Care Team Providers Care Chef Teacher Name Role Phone Monica Francis MD Primary Care Provide r Abelino Devine PharmD Unavailable Reason for Visit * Reason Comments Med Refill Encounter Details Date Type Department Care Team (Late st Contact Info) Description 10/03/2024 Refill [facility] [address] [place] [phone] Monica Francis MD [address] [place], [place] [phone] Social History Tobacco Use Types Packs/Day Years [...] the past 12 months, has t he [employer] gas, oil or water company threatened to [...] Description 03/09/2025 1:45 PM EST Office Visit [facility] [address] [place] [phone] Monica Francis MD [address] [place] [phone] 04/27/2025 9:30 AM EDT Medication Management [facility] [address] [place] [phone] Abelino Devine, PharmD [address] [place] [phone] documented as of this encounter Visit Diagnoses Not on filedocumented in this encounter Additional Health Concerns Assessment Noted Time PHQ-9 Depression Total Score: 0 07/28/19 24 10:07 AM EDT documented as of this encounter Care Teams Chef Teacher Relationship Specialty Start Date End Date Monica Francis MD [address] [place] [phone] PCP - General Family Medicine 10/28/17 Abelino Devine, RobbieD [address] [place] [phone] Pharmacist Internal Medicine 05/03/24 documented as of this encounter
--- OUTSIDE RECORDS SUMMARY | 2025-02-10 13:11 | XMS_ITS | Encounter Summary ---
Author Organization [employer] Address [address] [facility] 7t [place] [address] Care Team Providers Care Yarn Weigher Name Role Phone Monica Francis MD Primary Care Provide r Abelino Devine PharmD Unavailable [phone] Reason for Visit * Reason Comments Chart update mammo Encounter Details Date Type Department Care Team (Late Contact Info) Description 08/07/2022 Abstract [facility] [address] [place] [phone] Monica Francis MD [address] [place] [address] [phone] Social History Tobacco Use Types Packs/Day Years [...] Department Care Team (Late Contact Info) Description 03/09/2025 1:45 PM EST Office Visit [facility] [address] [place] [address] [phone] Monica Francis MD [address] [place] [address] [phone] 04/27/2025 9:30 AM EDT Medication Management [facility] [address] [place], [place] [phone] Abelino Devine, PharmD [address] [place] [phone] documented as of this encounter Procedures Procedure [...] on filedocumented in this encounter Care Teams Yarn Weigher Relationship Specialty Start Date End Date Monica Francis MD [address] [place] [phone] PCP - General Family Medicine 10/28/17 Abelino Devine, PharmD [address] [place] [address] [phone] Pharmacist Internal Medicine 05/03/24 documented as of this encounter
== END 2025-02-10 13:09 | disposition home or self-care (01) ==
LOC: HO.MAMMO 13:08
PROVIDERS: Visit Provider Internal Medicine
DX: Z12.31 Encounter for screening mammogram for malignant neoplasm of breast (principal)
CPT/HCPCS: 77063; 77067

== ENCOUNTER → 2025-02-10 13:30 | Outpatient (BNV) | payer MEDICARE, SELFPAY | PROVIDERS: Visit Provider Internal Medicine | DX: Z12.31 Encounter for screening mammogram for malignant neoplasm of breast (principal) | CPT/HCPCS: 77063; 77067 ==